=== PATIENT | female | born 1945 | race Caucasian/White ===

== ENCOUNTER → 2019-07-18 15:28 | Outpatient (CLI) | payer MEDICARE, SELFPAY ==
--- NOTE | 2019-07-18 15:35 | US_ITS ---
PROCEDURE: US KIDNEY CLINICAL INDICATION: CHRONIC IDNEY DISEASE COMPARISON: ABDPELW/O CT ABD PELVIS W/O CONTRAST from 03/29/2016 FINDINGS: The right kidney is 9 x 3 x 6 cm. No hydronephrosis. There is a 5 x 4 cm cyst along the lower pole of the right kidney The left kidney is 9 x 4 x 4 cm. No hydronephrosis. IMPRESSION: 5 cm right renal cyst otherwise negative bilateral renal ultrasound Dictated by: Everardo Healy MD 07/18/2019 17:32 Electronically signed by Everardo Healy MD in [place] 07/18/2019 17:32
== END ==
PROVIDERS: PCP Nurse Practitioner Family; Visit Provider Nurse Practitioner Family
DX: N18.9 Chronic kidney disease, unspecified (principal)
CPT/HCPCS: 76770

== ENCOUNTER 2019-09-07 20:19 | Emergency (ER) | payer MEDICARE, SELFPAY ==
[2019-09-07 20:33] VITALS: BP 125/107; PULSE 85; RESP 20; TEMP 36.4; O2SAT 97; BMI 32.5
--- NOTE | 2019-09-07 20:39 | HMH.EDUTC ---
[facility] [place] Disposition Clinical Impression: Gout attack Qualifiers: Gout site: toe Gout etiology: unspecified cause Laterality: left Qualified Code(s): M10.9 - Gout, unspecified Disposition: Home, Self-Care Condition on Discharge: Good Instructions: DI for Gout, Gout, Gout (Alternative Therapy), Colchicine Additional Instructions: Follow up with Family Doctor if no improvement or any worsening of symptoms in the next 48-72 hours or sooner if needed *Straight to ER if any life threatening symptoms Return if needed Prescriptions: Colchicine [Colcrys 0.6mg tablet] 0.6 mg PO DIRECTED #3 tab Transmission Status: Pending to [facility] Referrals: Cuca Means APRN [Primary Care Provider] - As needed Time of Disposition: 21:27 Medical Decision Making - Rishabh Inquiry Pt receiving controlled substance: No Rishabh was queried for this patient: No Vital Signs: 09/07/19 20:33 Temperature 97.6 F Temperature Source Oral Pulse Rate [Left Brachial] 85 Respiratory Rate 20 Blood Pressure [Left Arm] 125/107 H Blood Pressure Mean [Left Arm] 113 Blood Pressure Source [Left Arm] Automatic Cuff Blood Pressure Position [Left Arm] Sitting 02 Sat by Pulse Oximetry 97 Oxygen Delivery Method Room Air - Lab Data Lab Results 09/07/19 20:37: Uric Acid 7.9 H Orders (Tests/Meds): ORDERS Category Date Time Status Foot XR left minimum 3 views [XR foot LT min 3V] Stat Exams 09/07/19 20:43 Taken - Radiology Data #1 Image(s): Foot/Toes Image Reviewed: Yes I reviewed the patient's radiology image Preliminary Findings: No Fracture Seen [facility] [place] HPI - General Stated complaint: Left big toe pain Time Seen by Provider: 09/07/19 20:39 Mode of Arrival: Ambulatory Source of Information: Patient Limitations: No Limitations Description of Symptoms (Recalled from Triage Doc. by RN): PATIENT C/O SWELLING AND THROBBING PAIN TO LEFT GREAT TOE THAT STARTED TODAY HEENT Symptoms (Recalled from RN notes): No Resp Symptoms (Recalled from RN notes): No Skin Symptoms (Recalled from RN notes): No MS Symptoms (Recalled from RN notes): Yes Functional Status (Recalled from RN notes): WNL - History of Present Illness Provider Complaint: Patient states that she has been having swelling and throbbing pain in her left great toe that has got worse today States that she hasnt done anything to hurt it that she is aware of and as the day went on she continued to have pain and looked a little red so she came in to get it checked - Related Data Home Medications Medication Instructions Recorded Confirmed Furosemide [Lasix 20mg tab] 20 mg PO DAILY 09/07/19 09/07/19 Pravastatin Sodium 10 mg PO HS 09/07/19 09/07/19 lisinopriL [Lisinopril 10mg Tab] 10 mg PO DAILY 09/07/19 09/07/19 Previous Rx's Medication Instructions Recorded Colchicine [Colcrys 0.6mg tablet] 0.6 mg PO DIRECTED #3 tab 09/07/19 Allergies Allergy/AdvReac Type Severity Reaction Status Date / Time tetanus toxoid, adsorbed Allergy Unknown SWELLS Verified 09/07/19 20:40 [TETANUS TOXOID, ADSORBED] THROAT - Worker's Comp Is this a Worker's Comp case?: No [facility] History - Hepatitis A Screen Drug use history?: No High risk sexual behaviors?: No History of sexually transmitted infection?: No Currently employed?: No Childcare worker?: No Do you have indoor plumbing?: Yes Do you have electricity?: Yes Attestation statement:: This patient has been screened for Hepatitis A risk factors. I have reviewed the patient's past medical history: Yes Medical History: Reports:: Hyperlipidemia, Hypertension, Kidney Stones Other Medical History: Reports: Hoarseness Other Surgeries: Yes: Hysterectomy-Total Amputation: No Fractures: No - Social History Smoking Status: Former smoker Tobacco Type: cigarettes Alcohol Intake: never Alcohol Intake Frequency:: a few times a month Substance Use Type: denies use Occupational Status: other Housing: house
--- NOTE | 2019-09-07 20:43 | XR_ITS ---
PROCEDURE: XR FOOT LT MIN 3V CLINICAL INDICATION: left great toe pain COMPARISON: No exams were available for comparison FINDINGS: No fracture or dislocation. No lytic or blastic change. There is normal mineralization. The joint spaces are well-preserved. No significant degenerative/arthritic changes. No erosive changes evident. Other findings:None. IMPRESSION: No acute findings. Dictated by: Everardo Healy MD 09/08/2019 07:39 Electronically signed by Everardo Healy MD in [place] 09/08/2019 07:39
[2019-09-07 20:53] LABS: Uric Acid 7.9 mg/dl (2.5-6.2)
[2019-09-07 21:33] VITALS: BP 125/107; PULSE 85; RESP 20; TEMP 36.4; O2SAT 97
== END 2019-09-07 21:34 | disposition home or self-care (01) ==
PROVIDERS: Emergency Provider Nurse Practitioner; PCP Nurse Practitioner Family
DX: M10.072 Idiopathic gout, left ankle and foot (principal); I10 Essential (primary) hypertension; E78.5 Hyperlipidemia, unspecified; Z87.442 Personal history of urinary calculi; Z88.7 Allergy status to serum and vaccine
CPT/HCPCS: 73630; 84550; 96372; 99202

== ENCOUNTER → 2019-11-28 10:58 | Outpatient (CLI) | payer MEDICARE, SELFPAY ==
[2019-11-29 20:41] LABS: Covid-19 Nasal PCR Sendout Lex POSITIVE
== END ==
PROVIDERS: PCP Nurse Practitioner Family; Visit Provider Nurse Practitioner Family
DX: Z20.828 Contact with and (suspected) exposure to other viral communicable diseases (principal); U07.1 COVID-19
CPT/HCPCS: U0004

== ENCOUNTER → 2020-06-12 09:35 | Outpatient (CLI) | payer MEDICARE, MEDICAID, SELFPAY ==
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
--- NOTE | 2020-06-12 | XR_ITS ---
PROCEDURE: XR HIP RT 2-3V W/PELVIS CLINICAL INDICATION: RT HIP PAIN COMPARISON: No exams were available for comparison FINDINGS: No fracture or dislocation is evident. No significant degenerative change. No lytic or blastic change. Unremarkable soft tissues. IMPRESSION: Negative right hip Dictated by: Everardo Healy MD 06/12/2020 13:16 Everardo Healy MD in [place] 06/12/2020 13:16
--- NOTE | 2020-06-12 | XR_ITS ---
PROCEDURE: XR KNEE RT 3V CLINICAL INDICATION: ACUTE PAIN OF RIGHT KNEE COMPARISON: No exams were available for comparison FINDINGS: No fracture or dislocation. No lytic or blastic change. There is normal mineralization. The joint spaces are well-preserved. No significant degenerative/arthritic changes. No erosive changes evident. Other findings:None. IMPRESSION: No acute findings. Dictated by: Everardo Healy MD 06/12/2020 13:17 Everardo Healy MD in [place] 06/12/2020 13:17
== END ==
PROVIDERS: PCP Nurse Practitioner Family; Visit Provider Nurse Practitioner Family
DX: M54.41 Lumbago with sciatica, right side (principal); M25.551 Pain in right hip; M25.561 Pain in right knee
CPT/HCPCS: 72110; 73502; 73562

== ENCOUNTER 2020-06-25 19:43 | Emergency (ER) | payer OTHER, MEDICARE, MEDICAID, SELFPAY ==
[2020-06-25 20:09] VITALS: BP 159/74; PULSE 117; RESP 17; TEMP 36.6; O2SAT 97; BMI 38.9
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
[2020-06-25 22:27] VITALS: BP 148/74; PULSE 92; RESP 18; TEMP 36.6; O2SAT 97
== END 2020-06-25 22:29 | disposition home or self-care (01) ==
PROVIDERS: Emergency Provider Emergency Medicine; PCP Nurse Practitioner Family
DX: S06.0X0A Concussion without loss of consciousness, initial encounter (principal); S00.03XA Contusion of scalp, initial encounter; S13.9XXA Sprain of joints and ligaments of unspecified parts of neck, initial encounter; S70.02XA Contusion of left hip, initial encounter; V43.52XA Car driver injured in collision with other type car in traffic accident, initial encounter; Y92.414 Local residential or business street as the place of occurrence of the external cause
CPT/HCPCS: 70450; 71046; 72125; 73502; 99282

== ENCOUNTER → 2020-10-22 12:52 | Outpatient (CLI) | payer MEDICARE, SELFPAY ==
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
== END ==
PROVIDERS: PCP Nurse Practitioner Family; Visit Provider Nurse Practitioner Family
DX: M54.41 Lumbago with sciatica, right side (principal); M54.42 Lumbago with sciatica, left side; M51.36 Other intervertebral disc degeneration, lumbar region
CPT/HCPCS: 72148; 76376

== ENCOUNTER → 2020-12-17 09:24 | Outpatient (CLI) | payer MEDICARE, SELFPAY | PROVIDERS: Visit Provider Ophthalmology | DX: Z01.812 Encounter for preprocedural laboratory examination (principal); Z11.52 Encounter for screening for COVID-19 | CPT/HCPCS: C9803; U0003; U0005 ==

== ENCOUNTER 2020-12-18 06:52 | Day surgery (SDC) | payer MEDICARE, MEDICAID, SELFPAY ==
[2020-12-12 13:40] VITALS: BMI 31.7
[2020-12-18] VITALS (9 sets, daily range): BP systolic 149–207; BP diastolic 70–94; PULSE 105–120; RESP 16–18; TEMP 36.5–36.7; O2SAT 94–100
== END 2020-12-18 08:30 | disposition home or self-care (01) ==
LOC: OR 06:55
PROVIDERS: PCP Nurse Practitioner Family; Visit Provider Ophthalmology
DX: H25.813 Combined forms of age-related cataract, bilateral (principal); H53.149 Visual discomfort, unspecified; H02.831 Dermatochalasis of right upper eyelid; H02.834 Dermatochalasis of left upper eyelid; I10 Essential (primary) hypertension; F41.9 Anxiety disorder, unspecified; M19.90 Unspecified osteoarthritis, unspecified site; Z79.899 Other long term (current) drug therapy
CPT/HCPCS: 66984; V2632

== ENCOUNTER → 2020-12-31 07:13 | Outpatient (CLI) | payer MEDICARE, MEDICAID, SELFPAY | PROVIDERS: PCP Nurse Practitioner Family; Visit Provider Ophthalmology | DX: Z01.812 Encounter for preprocedural laboratory examination (principal); Z11.52 Encounter for screening for COVID-19 | CPT/HCPCS: C9803; U0003; U0005 ==

== ENCOUNTER 2021-01-01 06:51 | Day surgery (SDC) | payer MEDICARE, MEDICAID, SELFPAY ==
[2020-12-27 13:02] VITALS: BMI 32.5
[2021-01-01] VITALS (8 sets, daily range): BP systolic 141–209; BP diastolic 72–93; PULSE 88–94; RESP 16–18; TEMP 36.8–37; O2SAT 96–100; BMI 32.5
== END 2021-01-01 08:40 | disposition home or self-care (01) ==
LOC: OR 06:53
PROVIDERS: PCP Nurse Practitioner Family; Visit Provider Ophthalmology
DX: H25.813 Combined forms of age-related cataract, bilateral (principal); H53.149 Visual discomfort, unspecified; H02.831 Dermatochalasis of right upper eyelid; H02.834 Dermatochalasis of left upper eyelid; I10 Essential (primary) hypertension; Z82.49 Family history of ischemic heart disease and other diseases of the circulatory system; Z88.7 Allergy status to serum and vaccine; Z79.899 Other long term (current) drug therapy
CPT/HCPCS: 66984; V2632

== ENCOUNTER 2021-01-02 09:58 | Emergency (ER) | payer MEDICARE, MEDICAID, SELFPAY ==
[2021-01-02 09:58] VITALS: BP 199/95; PULSE 83; RESP 16; TEMP 36.7; O2SAT 98; BMI 32.4
--- NOTE | 2021-01-02 10:04 | HMH.EDGENADL ---
ED Disposition Clinical Impression: Chronic hypertension Disposition: Home, Self-Care Condition on Discharge: Good Additional Instructions: Follow-up with your nurse practitioner tomorrow versus calling Dr. Anaya/Dr. Gage office today for reevaluation and further medication management. Referrals: Cuca Means APRN [Primary Care Provider] - 01/03/21 (Call for appointment) Time of Disposition: 10:37 - Critical Care Critical Care Time: No Attestation: On , the high probability of a clinically significant, sudden or life threatening deterioration of the following system(s) required my full and direct attention, intervention and personal management. The time I documented below is in addition to time spent performing reported procedures but includes the following listed in this critical care notation. Medical Decision Making - Medical Records Medical records reviewed: Yes: I reviewed the patient's medical records. - Rishabh Inquiry Pt receiving controlled substance: No Vital Signs: 01/02/21 09:58 Temperature 98.1 F Temperature Source Oral Pulse Rate [Right Radial] 83 Respiratory Rate 16 Blood Pressure [Right Arm] 199/95 H Blood Pressure Mean [Right Arm] 129 Blood Pressure Source [Right Arm] Automatic Cuff Blood Pressure Position [Right Arm] Sitting 02 Sat by Pulse Oximetry 98 Oxygen Delivery Method Room Air - ECG Data Tracing #1 I reviewed this ECG and interpreted as documented below: Normal sinus rhythm, 74 bpm, no ST elevation or depression, no ectopy, normal intervals. ECG initial impression date: 01/02/21 ECG initial impression time: 10:14 Medical Decision Narrative: 75yo F presents to the emergency department secondary to her chronic hypertension. Patient has no symptoms of hypertensive urgency or emergency. She reports her blood pressure currently on the monitor is what her blood pressure runs at home. EKG is reviewed as above. She is currently being worked up by her nurse practitioner outpatient for further management. Again, she denies any chest pain shortness of breath. She has no cardiac history. Patient does not smoke. Discussed with the patient do not manage chronic blood pressure through the emergency department. General Adult HPI - General Stated complaint: bp high Time Seen by Provider: 01/02/21 10:04 Mode of Arrival: Ambulatory Source of Information: Patient - History of Present Illness HPI narrative: 75yo F presents the emergency department secondary to elevated blood pressure. Patient reports her nurse practitioner recently increased her dose of lisinopril, yesterday. She reports taking medications as directed. She states her blood pressure has been running 190s/100s. She denies any chest pain, shortness of breath, lightheadedness, dizziness. Her main complaint is chronic fatigue. Patient has had no further work-up into her resistant hypertension. She attempted to call her nurse practitioner's office this morning but she is out today. - Related Data Home Medications Medication Instructions Recorded Confirmed lisinopriL [Lisinopril 10mg Tab] 10 mg PO DAILY 09/07/19 12/27/20 Buspirone HCl [Buspar 10mg 10 mg PO BID 06/25/20 12/27/20 tablet] Meloxicam 15 mg PO DAILY 06/25/20 12/27/20 Aspirin [Aspirin 81mg chewable 81 mg PO DAILY 01/02/21 01/02/21 tab] Cyclobenzaprine HCl 10 mg PO NEEDED PRN 01/02/21 01/02/21 [Cyclobenzaprine 10mg Tab*] Furosemide [Furosemide 20mg Tab*] 20 mg PO BID 01/02/21 01/02/21 Potassium Chloride [K-Tab ER 10 10 meq PO DAILY 01/02/21 01/02/21 mEq] Tramadol HCl [Tramadol 50mg 50 mg PO NEEDED PRN 01/02/21 01/02/21 Tab] diazePAM [diazePAM 5mg Tablet] 5 mg PO NEEDED PRN 01/02/21 01/02/21 Allergies Allergy/AdvReac Type Severity Reaction Status Date / Time tetanus toxoid, adsorbed Allergy Unknown SWELLS Verified 12/27/20 13:05 [TETANUS TOXOID, ADSORBED] THROAT [facility] History - Hepatitis A Screen
--- NOTE | 2021-01-02 10:13 | ECG_ITS ---
APPROVED REPORT Exam: Resting ECG HR:76 bpm ECG Measurements Heart Rate 76 AXES MO 152 P 89 QRSd 98 QRS 23 QT 398 T 60 QTc 447 Conclusion Sinus rhythm with fusion complexes Otherwise normal ECG Electronically signed by : Devan Doty MD 01/04/2021 14:29:55
[2021-01-02 11:04] VITALS: BP 196/104; PULSE 77; RESP 16; TEMP 36.7; O2SAT 98
== END 2021-01-02 11:07 | disposition home or self-care (01) ==
LOC: ER 10:46
PROVIDERS: Emergency Provider Family Medicine; PCP Nurse Practitioner Family
DX: I16.0 Hypertensive urgency (principal); R53.82 Chronic fatigue, unspecified; E78.5 Hyperlipidemia, unspecified; Z87.442 Personal history of urinary calculi; Z79.899 Other long term (current) drug therapy
CPT/HCPCS: 93005; 99281

== ENCOUNTER → 2021-01-24 10:27 | Outpatient (CLI) | payer MEDICARE, MEDICAID, SELFPAY ==
[2021-01-24 11:29] LABS: Chloride 103 mmol/L (98-107); Potassium 4.9 mmoL/L (3.5-5.1); Sodium 140 mmol/L (136-145)
[2021-01-24 11:32] LABS: Blood Urea Nitrogen 28 mg/dl (7-17); Estimated Glomerular Filt Rate 48 ml/min (>60); GFR (African American) 58 ML/MIN (>60)
[2021-01-24 11:33] LABS: Anion Gap 11.9 mEq/L (5-15); Calcium 9.6 mg/dl (8.4-10.2); Carbon Dioxide 30 mmol/L (22.0-30.0); Glucose 105 mg/dl (74-100)
== END ==
PROVIDERS: Visit Provider Nurse Practitioner Family
DX: I10 Essential (primary) hypertension (principal)
CPT/HCPCS: 36415; 80048

== ENCOUNTER 2021-05-26 12:30 | Emergency (ER) | payer MEDICARE, MEDICAID, SELFPAY ==
[2021-05-26 13:45] VITALS: BP 150/68; PULSE 103; RESP 17; TEMP 36.8; O2SAT 97; BMI 32.8
[2021-05-26 14:00] VITALS: BP 132/71; PULSE 102; O2SAT 96
--- NOTE | 2021-05-26 14:03 | XR_ITS ---
PROCEDURE INFORMATION: Exam: XR Chest Exam date and time: 05/26/2021 2:13 PM Age: 75 years old Clinical indication: Cough TECHNIQUE: Imaging protocol: XR of the chest. Views: 1 view. COMPARISON: CR XR CHEST 2V 06/25/2020 8:50 PM FINDINGS: Airway: Patent Lungs: Unremarkable. No consolidation. Pleural spaces: Unremarkable. No pleural effusion. No pneumothorax. Heart/Mediastinum: Unremarkable. No cardiomegaly. Bones/joints: No acute skeletal abnormality or aggressive osseous lesion. IMPRESSION: No acute findings.
[2021-05-26 14:08] LABS: Microscopic, Urine URINE MICROSCOPIC (MICROSCOPIC)
[2021-05-26 14:31] LABS: Appearance,Urine CLEAR (Clear); Bilirubin,Urine Negative (Negative); Blood, Urine Negative (Negative); Color,Urine YELLOW (Yellow); Glucose,Urine (UA) Negative (Negative); Ketones,Urine Negative (Negative); Leukocyte Esterase,Urine Negative (Negative); Nitrate,Urine Negative (Negative); Protein,Urine Negative (Negative); Urobilinogen,Urine 0.2 EU/dl (0.2)
[2021-05-26 14:42] LABS: WBC,Urine Occasional #/hpf (0-3)
[2021-05-26 15:03] LABS: Chloride 100 mmol/L (98-107); Sodium 140 mmol/L (136-145)
[2021-05-26 15:04] LABS: Potassium 4.7 mmoL/L (3.5-5.1)
[2021-05-26 15:06] LABS: Alanine Aminotransferase 26 U/L (12-78); Albumin Level 4.3 g/dl (3.5-5.0); Albumin/Globulin Ratio 1.2 (1.1-1.8); Alkaline Phosphatase 136 U/L (38-126); Anion Gap 12.7 mEq/L (5-15); Aspartate Amino Transferase 33 U/L (14-36); Bilirubin,Total 0.6 mg/dl (0.2-1.3); Blood Urea Nitrogen 45 mg/dl (7-17); Carbon Dioxide 32 mmol/L (22.0-30.0); Creatinine Clearance Estimated 35 mL/min (50-200); Estimated Glomerular Filt Rate 27 ml/min (>60); GFR (African American) 33 ML/MIN (>60); Globulin 3.5 g/dL (1.3-3.2); Total Protein,Serum 7.8 g/dl (6.3-8.2)
[2021-05-26 15:07] LABS: Calcium 8.8 mg/dl (8.4-10.2); Glucose 101 mg/dl (74-100)
[2021-05-26 15:08] LABS: Basophils # 0.2 K/mm3 (0-0.2); Basophils % 1.9 % (0.1-2.0); Eosinophils # 0.6 K/mm3 (0.0-0.4); Eosinophils % 4.8 % (0.1-12.0); Hematocrit 44.8 % (37.0-47.0); Hemoglobin 14.3 g/dL (12.2-16.2); Lymphocytes # 2.7 K/mm3 (0.7-4.5); Lymphocytes % 22.2 % (10-50); Mean Corpuscular Hemoglobin 29.9 pg (27.0-31.2); Mean Corpuscular Volume 93.5 fl (81-99); Mean Platelet Volume 8.6 fl (7.4-10.4); Monocytes # 0.5 K/mm3 (0.1-1.0); Monocytes % 4.1 % (1.7-9.3); Neutrophils # 8.1 K/mm3 (1.8-7.8); Neutrophils % 67.1 % (37.0-80.0); Platelet Count 347 K/mm3 (142-424); Red Cell Distribution Width 13.9 % (11.5-17.5); White Blood Count 12.1 K/mm3 (4.8-10.8)
[2021-05-26 15:16] LABS: NT Pro Brain Natriuretic Pep. 163 pg/mL (0-450)
[2021-05-26 15:41] VITALS: BP 157/88; PULSE 101
[2021-05-26 16:00] VITALS: BP 162/84; PULSE 101; O2SAT 98
--- NOTE | 2021-05-26 16:18 | HMH.EDGENADL ---
ED Disposition Clinical Impression: Acute bronchitis Qualifiers: Bronchitis organism: unspecified organism Qualified Code(s): J20.9 - Acute bronchitis, unspecified Disposition: Home, Self-Care Condition on Discharge: Good Instructions: DI for Acute Bronchitis, DI for Peripheral Edema -- Bilateral Additional Instructions: Zithromax and Tessalon Perles as prescribed. Follow-up with your primary care provider, call tomorrow. Prescriptions: Benzonatate [Benzonatate 100mg cap] 100 mg PO TIDP PRN #10 cap PRN Reason: Cough Transmission Status: Received by [facility] Azithromycin [Zithromax 250mg tab] 250 mg PO DAILY #4 tab Transmission Status: Received by [facility] Referrals: Cuca Means APRN [Primary Care Provider] - - Critical Care Critical Care Time: No Attestation: On 05/26/21, the high probability of a clinically significant, sudden or life threatening deterioration of the following system(s) required my full and direct attention, intervention and personal management. The time I documented below is in addition to time spent performing reported procedures but includes the following listed in this critical care notation. Medical Decision Making - Rishabh Inquiry Pt receiving controlled substance: No Vital Signs: 05/26/21 13:45 05/26/21 14:00 Temperature 98.2 F Temperature Source Oral Pulse Rate 102 H Pulse Rate [Left Radial] 103 H Respiratory Rate 17 Blood Pressure 132/71 Blood Pressure [Right Arm] 150/68 H Blood Pressure Mean 84 Blood Pressure Mean [Right Arm] 95 02 Sat by Pulse Oximetry 97 96 Oxygen Delivery Method Room Air - Lab Data Lab Results 05/26/21 13:49: Urine Color Yellow, Urine Appearance Clear, Urine pH 6.0, Ur Specific [place] 1.010, Urine Protein Negative, Urine Glucose (UA) Negative, Urine Ketones Negative, Urine Blood Negative, Urine Nitrate Negative, Urine Bilirubin Negative, Urine Urobilinogen 0.2, Ur Leukocyte Esterase Negative, Urine RBC None, Urine WBC Occasional, Ur Squamous Epith Cells 3-5, Urine Bacteria None 05/26/21 14:50: WBC 12.1 H, RBC 4.80, Hgb 14.3, Hct 44.8, MCV 93.5, MCH 29.9, MCHC 32.0, RDW 13.9, Plt Count 347, MPV 8.6, Neut % (Auto) 67.1, Lymph % (Auto) 22.2, Scott % (Auto) 4.1, Eos % (Auto) 4.8, Baso % (Auto) 1.9, Neut # (Auto) 8.1 H, Lymph # (Auto) 2.7, Scott # (Auto) 0.5, Eos # (Auto) 0.6 H, Baso # (Auto) 0.2 05/26/21 14:50: Sodium 140, Potassium 4.7, Chloride 100, Carbon Dioxide 32 H, Anion Gap 12.7, BUN 45 H, Creatinine 1.80 H, Estimated Creat Clear 35, Estimated GFR 27 L, Est GFR ( Amer) 33 L, Glucose 101 H, Calcium 8.8, Total Bilirubin 0.6, AST 33, ALT 26, Alkaline Phosphatase 136 H, NT-Pro-B Natriuret Pep 163, Total Protein 7.8, Albumin 4.3, Globulin 3.5 H, Albumin/Globulin Ratio 1.2 Result diagrams: 05/26/21 14:50 05/26/21 14:50 Orders (Tests/Meds): ED MEDICATIONS Generic Name Dose Route Start Last Admin Trade Name Freq PRN Reason Stop Dose Admin Sodium Chloride 10 ml 05/26/21 14:03 Sodium Chloride 0.9% 10ml Flush Syringe IV 06/25/21 14:02 NEEDED PRN Maintain IV Site Discontinued Medications Generic Name Dose Route Start Last Admin Trade Name Freq PRN Reason Stop Dose Admin Azithromycin 500 mg 05/26/21 16:42 Azithromycin 250mg Tablet PO 05/26/21 16:43 ONCE ONE Benzonatate 100 mg 05/26/21 16:42 Benzonatate 100mg Capsule PO 05/26/21 16:43 ONCE ONE - Radiology Data #1 Image(s): Chest Image Reviewed: Yes I have reviewed radiologist's interpretation PROCEDURE INFORMATION: Exam: XR Chest Exam date and time: 05/26/2021 2:13 PM Age: 75 years old Clinical indication: Cough TECHNIQUE: Imaging protocol: XR of the chest. Views: 1 view. COMPARISON: CR XR CHEST 2V 06/25/2020 8:50 PM FINDINGS: Airway: Patent Lungs: Unremarkable. No consolidation. Pleural spaces: Unremarkable. No pleural effusion. No pneumothorax.
[2021-05-26 16:30] VITALS: BP 153/84; PULSE 101; O2SAT 97
[2021-05-26 17:09] VITALS: BP 136/84; PULSE 91; RESP 20; TEMP 36.8; O2SAT 96
== END 2021-05-26 17:09 | disposition home or self-care (01) ==
PROVIDERS: Emergency Provider Emergency Medicine; PCP Nurse Practitioner Family
DX: J20.9 Acute bronchitis, unspecified (principal); I10 Essential (primary) hypertension; E78.5 Hyperlipidemia, unspecified; R06.09 Other forms of dyspnea; Z79.899 Other long term (current) drug therapy
CPT/HCPCS: 36415; 71045; 80053; 81001; 83880; 85025; 99283

== ENCOUNTER → 2021-06-20 15:53 | Outpatient (CLI) | payer MEDICARE, MEDICAID, SELFPAY ==
[2021-06-20 16:34] LABS: Basophils # 0.2 K/mm3 (0-0.2); Basophils % 1.4 % (0.1-2.0); Eosinophils # 0.4 K/mm3 (0.0-0.4); Hematocrit 43.1 % (37.0-47.0); Hemoglobin 13.8 g/dL (12.2-16.2); Lymphocytes # 3.5 K/mm3 (0.7-4.5); Lymphocytes % 28.4 % (10-50); Mean Corpuscular Hemoglobin 30.1 pg (27.0-31.2); Mean Platelet Volume 8.7 fl (7.4-10.4); Monocytes # 0.7 K/mm3 (0.1-1.0); Monocytes % 5.7 % (1.7-9.3); Neutrophils # 7.7 K/mm3 (1.8-7.8); Neutrophils % 61.5 % (37.0-80.0); Platelet Count 369 K/mm3 (142-424); Red Blood Count 4.59 M/mm3 (4.20-5.40); Red Cell Distribution Width 13.5 % (11.5-17.5); White Blood Count 12.5 K/mm3 (4.8-10.8)
[2021-06-20 17:43] LABS: Alanine Aminotransferase 26 U/L (12-78); Albumin Level 4.4 g/dl (3.5-5.0); Albumin/Globulin Ratio 1.5 (1.1-1.8); Alkaline Phosphatase 128 U/L (38-126); Anion Gap 14.9 mEq/L (5-15); Aspartate Amino Transferase 31 U/L (14-36); Bilirubin,Total 0.6 mg/dl (0.2-1.3); Blood Urea Nitrogen 36 mg/dl (7-17); Calcium 9.2 mg/dl (8.4-10.2); Carbon Dioxide 29 mmol/L (22.0-30.0); Chloride 100 mmol/L (98-107); Estimated Glomerular Filt Rate 48 ml/min (>60); GFR (African American) 58 ML/MIN (>60); Glucose 82 mg/dl (74-100); Potassium 4.9 mmoL/L (3.5-5.1); Sodium 139 mmol/L (136-145); Total Protein,Serum 7.4 g/dl (6.3-8.2); Uric Acid 8.1 mg/dl (2.5-6.2)
== END ==
PROVIDERS: Visit Provider Nurse Practitioner Family
DX: M79.672 Pain in left foot (principal); M79.89 Other specified soft tissue disorders
CPT/HCPCS: 36415; 80053; 84550; 85025

== ENCOUNTER → 2021-07-22 11:36 | Outpatient (POV) | payer MEDICARE, MEDICAID, SELFPAY | PROVIDERS: Visit Provider Internal Medicine Nephrology | DX: Z00.00 Encounter for general adult medical examination without abnormal findings (principal) ==

== ENCOUNTER 2021-12-06 07:12 | Emergency (ER) | payer MEDICARE, MEDICAID, SELFPAY ==
[2021-12-06 07:13] VITALS: BP 190/77; PULSE 90; RESP 16; TEMP 36.7; O2SAT 97; BMI 31.7
[2021-12-06 08:01] VITALS: BP 175/81; PULSE 86; O2SAT 97
[2021-12-06 08:13] LABS: Basophils # 0.1 K/mm3 (0-0.2); Basophils % 1.1 % (0.1-2.0); Eosinophils # 0.3 K/mm3 (0.0-0.4); Eosinophils % 2.6 % (0.1-12.0); Hematocrit 40.7 % (37.0-47.0); Hemoglobin 13.7 g/dL (12.2-16.2); Lymphocytes # 2.3 K/mm3 (0.7-4.5); Lymphocytes % 18.1 % (10-50); Mean Corpuscular HGB Conc 33.6 g/dL (31.8-35.4); Mean Corpuscular Hemoglobin 31.2 pg (27.0-31.2); Mean Corpuscular Volume 92.8 fl (81-99); Mean Platelet Volume 8.3 fl (7.4-10.4); Monocytes # 0.6 K/mm3 (0.1-1.0); Monocytes % 4.4 % (1.7-9.3); Neutrophils # 9.4 K/mm3 (1.8-7.8); Neutrophils % 73.7 % (37.0-80.0); Platelet Count 314 K/mm3 (142-424); Red Blood Count 4.39 M/mm3 (4.20-5.40); Red Cell Distribution Width 14.4 % (11.5-17.5); White Blood Count 12.8 K/mm3 (4.8-10.8)
[2021-12-06 08:17] LABS: Blood Urea Nitrogen 24 mg/dl (7-17); Calcium 8.7 mg/dl (8.4-10.2); Carbon Dioxide 32 mmol/L (22.0-30.0); Creatinine Clearance Estimated 61 mL/min (50-200); Estimated Glomerular Filt Rate 54 ml/min (>60); GFR (African American) 65 ML/MIN (>60); Glucose 112 mg/dl (74-100); Sodium 142 mmol/L (136-145); Uric Acid 4.1 mg/dl (2.5-6.2)
--- NOTE | 2021-12-06 08:23 | HMH.EDGENADL ---
Discharge Plan Disposition Patient Disposition: Home, Self-Care Condition: Good Chief Complaint: PAIN Prescriptions Prescriptions: No Action indomethacin 50 mg capsule 50 mg PO BID allopurinol 300 mg tablet 300 mg PO DAILY lisinopril 10 MG tablet 20 mg PO DAILY tramadol 50 MG tablet 50 mg PO NEEDED PRN (Reason: pain) aspirin 81 MG tablet,chewable 81 mg PO DAILY furosemide 20 MG tablet 20 mg PO BID Referrals Follow up/Referrals: Cuca Means APRN [Primary Care Provider] - See instructions Activity Restrictions/Add. Instructions Additional Instructions/Restrictions: Prednisone as prescribed. Rest and elevate foot. Continue tramadol for pain. Follow-up with your primary care provider, call today to make appointment. Return if intolerable pain or if fever. Clinical Impressions Clinical Impression: Gout attack Discharge ED Provider: Ti Kulkarni General Adult HPI General Chief complaint: PAIN Stated complaint: Rt foot swollen Time Seen by Provider: 12/06/21 08:22 Mode of Arrival: Ambulatory Source of Information: Patient Limitations: No Limitations Description of Symptoms (Recalled from ER Triage Doc. by RN): Pt c/o R foot pain for 3-4 days. Pt reports foot is painful on the bottom of foot. Swelling noted, foot is warm to the touch and redness noted. Pt reports hx of gout. Pt denies any injury. History of Present Illness HPI narrative: States she has a 3-day history of pain in her right foot. Reports to me that the pain is on top of the foot, although told the nurse it was on the bottom. No injury. She says she does not know whether it is her gout or bug bite. She has associated pain, no fever. She has swelling of the foot. She has redness. She has had prior history of numerous gout attacks. She says she thinks she has had 3 or 4 in the past several months. She is currently on allopurinol and indomethacin, she started the indomethacin couple of days ago. She has had colchicine in the past, but it gives her diarrhea and she prefers not to take that. She says the last time she had a gout attack she was treated with a shot, possibly corticosteroids. She says that her current symptoms are in the same location as previous gout attacks, generally right forefoot as she has now, but she has more pain, redness, and swelling than previously. She has not had any recent x-rays. Related Data Home Medications Medication Instructions Recorded Confirmed lisinopril 10 mg tablet 20 mg PO DAILY Hypertension 09/07/19 12/06/21 aspirin 81 mg chewable tablet 81 mg PO DAILY heart health 01/02/21 12/06/21 furosemide 20 mg tablet 20 mg PO BID Fluid 01/02/21 12/06/21 tramadol 50 mg tablet 50 mg PO NEEDED PRN pain 01/02/21 12/06/21 allopurinol 300 mg tablet 300 mg PO DAILY gout 12/06/21 12/06/21 indomethacin 50 mg capsule 50 mg PO BID Pain 12/06/21 12/06/21 Allergies Allergy/AdvReac Type Severity Reaction Status Date / Time tetanus toxoid, adsorbed Allergy Unknown SWELLS Verified 12/27/20 13:05 [TETANUS TOXOID, ADSORBED] THROAT PFSH PFSH Social History Smoking Status: Never smoker second hand exposure: No alcohol intake: current substance use type: denies use current occupational status: retired Travel in the last 8 weeks: None household members: spouse housing: house current occupational exposures/hazards: No caffeine: Yes ROS Obtained: Yes Systems reviewed as appropriate & no additional complaints except as documented Constitutional Constitutional: Denies fever(s) and Denies weakness Musculoskeletal Musculoskeletal: Reports as per HPI, Denies numbness and Reports other (Right foot pain, redness, and swelling) Neurologic Neurologic: Denies numbness and Denies weakness Physical Exam General General appearance: alert and in no apparent distress Chest Chest inspection: Present normal inspection and symmetric chest wall rise
[2021-12-06 08:31] VITALS: BP 173/86; PULSE 88; RESP 18; O2SAT 98
--- NOTE | 2021-12-06 08:31 | XR_ITS ---
FINAL REPORT CLINICAL HISTORY: pain and swelling, no injury, hx gout FINDINGS: 3 views of the right foot were obtained. There is no acute fracture or dislocation. The joint spaces are intact. The soft tissues are unremarkable. IMPRESSION: No acute process. Reviewed, Interpreted and Dictated by Sesar Owen MD Transcribed by Bud Barr Authenticated and [facility]
--- NOTE | 2021-12-06 08:40 | PC.NURSE ---
rad at to transport pt to xray via wheelchair
--- NOTE | 2021-12-06 08:41 | PC.NURSE ---
pt to xray
[2021-12-06 08:45] LABS: Anion Gap 11.8 mEq/L (5-15); Chloride 102 mmol/L (98-107); Potassium 3.8 mmoL/L (3.5-5.1)
--- NOTE | 2021-12-06 08:56 | PC.NURSE ---
pt and family updated on plan of care
[2021-12-06 09:03] VITALS: BP 137/74; PULSE 77; RESP 16; TEMP 36.6; O2SAT 98
== END 2021-12-06 09:05 | disposition home or self-care (01) ==
PROVIDERS: Emergency Medicine; Emergency Provider Emergency Medicine; PCP Nurse Practitioner Family
DX: M10.9 Gout, unspecified (principal); Z79.1 Long term (current) use of non-steroidal anti-inflammatories (NSAID); Z79.52 Long term (current) use of systemic steroids; Z79.82 Long term (current) use of aspirin; Z79.899 Other long term (current) drug therapy
CPT/HCPCS: 73630; 80048; 84550; 85025; 96374; 96375; 99284; J2405

== ENCOUNTER → 2021-12-13 15:18 | Outpatient (CLI) | payer MEDICARE, MEDICAID, SELFPAY ==
--- NOTE | 2021-12-13 15:21 | MR_ITS ---
PROCEDURE INFORMATION: Exam: MR Right Lower Extremity Other Than Joint Without Contrast; Foot Exam date and time: 12/13/2021 3:22 PM Age: 76 years old Clinical indication: Swelling, leg or foot; Additional info: Swelling in right foot TECHNIQUE: Imaging protocol: Magnetic resonance imaging of the Right lower extremity without contrast. Exam focused on the foot. COMPARISON: CR XR FOOT RT MIN 3V 12/06/2021 8:33 AM FINDINGS: Bones and cartilage: Subchondral cystic change involving the medial talar dome in approximately a 3 x 7 mm region suggests a remote osteochondral injury (series 8/image 23, series 6/image 38). Overlying full-thickness cartilage loss is favored to be present in this region although assessment is limited due to the large field of view of the study. There is no acute fracture or dislocation. No aggressive bone lesions are present. No evidence of a crystal or inflammatory arthropathy. Joint spaces: A mild effusion involves the ankle joint. LIGAMENTS: Lisfranc ligament: Unremarkable. No evidence of tear. TENDONS: Flexor tendons of foot: Unremarkable. No evidence of tear. Tibialis posterior tendon: Unremarkable as visualized. Peroneal tendons: A longitudinal split tear involves the peroneus brevis tendon. Mild tenosynovitis involves the peroneal tendon sheath. Extensor tendons of foot: Unremarkable. No evidence of tear. Tibialis anterior tendon: Unremarkable as visualized. Achilles tendon: Minimal intermediate signal involves the distal Achilles tendon, consistent with minimal tendinopathy. Tarsal canal (Sinus tarsi): Unremarkable. Tarsal tunnel: Unremarkable. Soft tissues: Moderate to severe diffuse subcutaneous edema has a nonspecific appearance potentially indicating cellulitis or vascular insufficiency. Plantar fascia: Unremarkable as visualized. IMPRESSION: 1. Moderate to severe diffuse subcutaneous edema having a nonspecific appearance potentially indicating cellulitis or vascular insufficiency. 2. Peroneus brevis longitudinal split tear. 3. Mild tenosynovitis of the peroneal tendons. 4. Probable remote osteochondral injury involving the medial talar dome in a 3 x 7 mm region with presumed overlying full-thickness cartilage loss.
== END ==
PROVIDERS: PCP Nurse Practitioner Family; Visit Provider Nurse Practitioner Family
DX: M79.671 Pain in right foot (principal); M79.89 Other specified soft tissue disorders
CPT/HCPCS: 73718

== ENCOUNTER → 2021-12-19 13:30 | Outpatient (CLI) | payer MEDICARE, MEDICAID, SELFPAY ==
--- NOTE | 2021-12-19 | CA_ITS ---
FINAL REPORT TECHNIQUE: Ultrasound images of the deep venous system were obtained from the right groin to the calf veins. CLINICAL HISTORY: RLE PAIN/EDEMA FINDINGS: The deep venous system is normally compressible. Normal flow is identified. IMPRESSION: No evidence of right lower extremity DVT. Reviewed, Interpreted and Dictated by Jonathan Mack III, MD Transcribed by Bud Barr Authenticated and [facility]
== END ==
PROVIDERS: PCP Nurse Practitioner Family; Visit Provider Family Medicine
DX: M79.604 Pain in right leg (principal)
CPT/HCPCS: 93971

== ENCOUNTER → 2022-02-27 09:12 | Outpatient (CLI) | payer MEDICARE, MEDICAID, SELFPAY | PROVIDERS: PCP Student in an Organized Health Care Education/Training Program; Visit Provider Student in an Organized Health Care Education/Training Program | DX: R68.89 Other general symptoms and signs (principal) | CPT/HCPCS: C9803; U0003; U0005 ==

== ENCOUNTER → 2022-12-29 16:51 | Outpatient (CLI) | payer MEDICARE, MEDICAID, SELFPAY ==
--- NOTE | 2022-12-29 16:54 | XR_ITS ---
PROCEDURE INFORMATION: Exam: XR Lumbosacral Spine Exam date and time: 12/29/2022 4:56 PM Age: 77 years old Clinical indication: Low back pain; Additional info: Lower back pain TECHNIQUE: Imaging protocol: Radiologic exam of the lumbosacral spine. Views: 2 or 3 views. COMPARISON: MR LUMBAR SPINE WO CON 10/22/2020 1:05 PM FINDINGS: Bones/joints: There are 5 lumbar type vertebral bodies. No compression fractures. Severe L1-L2, moderate L2-L3, and mild L3-L4, L4-L5, and L5-S1 degenerative disc disease. L4-L5 and L5-S1 facet arthropathy. Mild dextroscoliosis. Soft tissues: Unremarkable. IMPRESSION: 1. No acute findings. 2. Moderate lumbar spine degenerative changes.
[2022-12-29 18:07] LABS: Alanine Aminotransferase 21 U/L (12-78); Albumin Level 4.6 g/dl (3.5-5.0); Albumin/Globulin Ratio 1.3 (1.1-1.8); Alkaline Phosphatase 112 U/L (38-126); Anion Gap 22.1 mEq/L (5-15); Aspartate Amino Transferase 28 U/L (14-36); Bilirubin,Total 0.2 mg/dl (0.2-1.3); Blood Urea Nitrogen 49 mg/dl (7-17); Calcium 9.9 mg/dl (8.4-10.2); Carbon Dioxide 22 mmol/L (22.0-30.0); Chloride 104 mmol/L (98-107); Estimated Glomerular Filt Rate 31 ml/min (>60); GFR (African American) 38 ML/MIN (>60); Globulin 3.6 g/dL (1.3-3.2); Glucose 108 mg/dl (74-100); Potassium 4.1 mmoL/L (3.5-5.1); Sodium 144 mmol/L (136-145); Total Protein,Serum 8.2 g/dl (6.3-8.2)
== END ==
PROVIDERS: PCP Nurse Practitioner Family; Visit Provider Nurse Practitioner Family
DX: M54.50 Low back pain, unspecified (principal); I10 Essential (primary) hypertension; E78.5 Hyperlipidemia, unspecified; R31.9 Hematuria, unspecified
CPT/HCPCS: 72100; 80053; 87086

== ENCOUNTER 2022-12-31 15:02 | Observation (INO) | payer MEDICARE, MEDICAID, SELFPAY ==
[2022-12-31 15:03] VITALS: BP 149/74; PULSE 95; RESP 16; TEMP 36.6; O2SAT 93; BMI 36.6
[2022-12-31 15:09] VITALS: BMI 36.6
--- NOTE | 2022-12-31 15:10 | CT_ITS ---
FINAL REPORT CLINICAL HISTORY: stroke r/o COMPARISON: 06/25/2020 FINDINGS: Axial images of the head were obtained without contrast. Coronal reformatted images were also obtained. This study was performed with techniques to keep radiation doses as low as reasonably achievable (ALARA). Individualized dose reduction techniques using automated exposure control or adjustment of mA and/or kV according to the patient's size were employed. There is generalized age-appropriate atrophy. Periventricular low-attenuation areas are seen consistent with moderate chronic ischemic changes. There are several chronic lacunar infarcts. There is no evidence of intracranial hemorrhage or mass. There is no evidence of acute infarct. There is no evidence of shift of the midline structures. No skull abnormality is seen on the bone window images. IMPRESSION: Atrophy and moderate periventricular chronic ischemic changes. No acute intracranial abnormality identified. Reviewed, Interpreted and Dictated by Jonathan Mack III, MD Transcribed by Catrina Curry Authenticated and [facility]
--- NOTE | 2022-12-31 15:10 | ECG_ITS ---
APPROVED REPORT Exam: Resting ECG HR:94 bpm ECG Measurements Heart Rate 94 AXES DE 203 P 72 QRSd 97 QRS 20 QT 355 T 53 QTc 407 Conclusion SINUS RHYTHM LOW QRS VOLTAGE IN PRECORDIAL LEADS [QRS DEFLECTION < 1.0 mV IN CHEST LEADS] INCOMPLETE RIGHT BUNDLE BRANCH BLOCK [90+ ms QRS DURATION, TERMINAL R IN V1/V2, 40+ ms S IN I/aVL/V4/V5/V6] BORDERLINE ECG WARNING: DATA QUALITY MAY AFFECT INTERPRETATION UNCONFIRMED REPORT Electronically signed by : Devan Doty MD 01/01/2023 21:27:36
--- NOTE | 2022-12-31 15:11 | PC.NURSE ---
Dr. Scott at BS
--- NOTE | 2022-12-31 15:11 | PC.NURSE ---
rad notified of ct head order-stroke protocol
--- NOTE | 2022-12-31 15:19 | XR_ITS ---
FINAL REPORT CLINICAL HISTORY: CVA symptoms FINDINGS: SINGLE-VIEW CHEST The heart size is normal. The mediastinum is normal. The lungs are clear. There is no pneumothorax. IMPRESSION: No acute cardiopulmonary process. Reviewed, Interpreted and Dictated by Jonathan Mack III, MD Transcribed by Catrina Curry Authenticated and [facility]
--- NOTE | 2022-12-31 15:19 | CT_ITS ---
FINAL REPORT TECHNIQUE: Thin section axial CT with IV contrast supplemented with multiplanar reconstruction under CT angiogram protocol. This study was performed with techniques to keep radiation doses as low as reasonably achievable (ALARA). Individualized dose reduction techniques using automated exposure control or adjustment of mA and/or kV according to the patient''s size were employed. NASCET criteria was utilized during interpretation. CLINICAL HISTORY: speech difficulty and RLE weakness, ? STROKE COMPARISON: None FINDINGS: Aortic arch: Arch shows no significant narrowing. Great vessel origins are widely patent. Note is made of an a variant right subclavian artery, a normal variant. Right carotid: There is calcified plaque at the right carotid bifurcation, without significant stenosis (less than 50%). Left carotid: There is calcified plaque at the left carotid bifurcation, without significant stenosis (less than 50%). Vertebral: Left vertebral artery is dominant. The right vertebral artery is hypoplastic. No significant stenosis is present. Reviewed, Interpreted and Dictated by Jonathan Mack III, MD Transcribed by Gwendolyn Davis Authenticated and [facility]
--- NOTE | 2022-12-31 15:19 | CT_ITS ---
FINAL REPORT TECHNIQUE: Thin section axial CT with IV contrast supplemented with multiplanar reconstruction under CT angiogram protocol. 3-D reconstructions were performed. This study was performed with techniques to keep radiation doses as low as reasonably achievable (ALARA). Individualized dose reduction techniques using automated exposure control or adjustment of mA and/or kV according to the patient''s size were employed. CLINICAL HISTORY: speech difficulty and RLE weakness, ? STROKE COMPARISON: None FINDINGS: The right artery is hypoplastic. The left vertebral artery is normal in appearance. The basilar and distal internal carotid arteries have an unremarkable appearance. No aneurysm is seen. Major intracranial vessels are patent without significant stenosis. IMPRESSION: No intracranial vascular abnormality identified. Reviewed, Interpreted and Dictated by Jonathan Mack III, MD Transcribed by Gwendolyn Davis Authenticated and [facility]
[2022-12-31 15:21] LABS: Basophils # 0.1 K/mm3 (0-0.2); Basophils % 0.6 % (0.1-2.0); Eosinophils # 0.4 K/mm3 (0.0-0.4); Eosinophils % 2.8 % (0.1-12.0); Hemoglobin 12.7 g/dL (12.2-16.2); Lymphocytes # 3.4 K/mm3 (0.7-4.5); Lymphocytes % 25.4 % (10-50); Mean Corpuscular HGB Conc 34.3 g/dL (31.8-35.4); Mean Corpuscular Hemoglobin 30.3 pg (27.0-31.2); Mean Corpuscular Volume 88.2 fl (81-99); Mean Platelet Volume 8.9 fl (7.4-10.4); Monocytes # 0.7 K/mm3 (0.1-1.0); Neutrophils # 8.9 K/mm3 (1.8-7.8); Neutrophils % 66.2 % (37.0-80.0); Platelet Count 366 K/mm3 (142-424); Red Cell Distribution Width 14.1 % (11.5-17.5); White Blood Count 13.5 K/mm3 (4.8-10.8)
--- NOTE | 2022-12-31 15:21 | PC.NURSE ---
Dr. Scott added CTA head and neck. Notified rad staff of new orders on pt, Dr. Scott states do not want to wait on labs.
[2022-12-31 15:25] LABS: Chloride 100 mmol/L (98-107); Sodium 138 mmol/L (136-145)
[2022-12-31 15:28] LABS: Alanine Aminotransferase 24 U/L (12-78); Albumin Level 4.5 g/dl (3.5-5.0); Albumin/Globulin Ratio 1.2 (1.1-1.8); Alkaline Phosphatase 139 U/L (38-126); Aspartate Amino Transferase 30 U/L (14-36); Bilirubin,Total 0.3 mg/dl (0.2-1.3); Blood Urea Nitrogen 55 mg/dl (7-17); Calcium 8.7 mg/dl (8.4-10.2); Carbon Dioxide 28 mmol/L (22.0-30.0); Creatinine Clearance Estimated 36 mL/min (50-200); Estimated Glomerular Filt Rate 27 ml/min (>60); GFR (African American) 33 ML/MIN (>60); Globulin 3.9 g/dL (1.3-3.2); Glucose 110 mg/dl (74-100); Total Protein,Serum 8.4 g/dl (6.3-8.2)
[2022-12-31 15:29] LABS: Prothrombin Time 9.8 seconds (10.1-12.5)
--- NOTE | 2022-12-31 15:34 | HMH.EDGENADL ---
Discharge Plan Disposition Patient Disposition: Admitted Chief Complaint: Neuro Symptoms/Deficit Prescriptions Prescriptions: No Action febuxostat 40 mg tablet 40 mg PO DAILY lisinopril 20 mg tablet 20 mg PO DAILY diazepam 5 mg tablet 5 mg PO BID PRN ipratropium-albuterol 0.5 mg-3 mg(2.5 mg base)/3 mL solution for nebulization 3 ml inhalation Q6H PRN (Reason: shortness of breath) hydrochlorothiazide 12.5 mg tablet 12.5 mg PO DAILY potassium chloride 10 mEq tablet,ER particles/crystals 10 meq PO DAILY duloxetine 30 mg capsule,delayed release(DR/EC) 30 mg PO DAILY 30 Days Qty: 30 2RF tramadol 50 mg tablet 50 mg PO Q8H PRN (Reason: pain) Qty: 90 0RF furosemide 20 MG tablet 20 mg PO BID Referrals Follow up/Referrals: Cuca Means APRN [Primary Care Provider] - See instructions Clinical Impressions Clinical Impression: LAURITA (acute kidney injury), Polypharmacy, Generalized weakness Discharge ED Provider: Charles Scott General Adult HPI General Chief complaint: Neuro Symptoms/Deficit Stated complaint: weakness Time Seen by Provider: 12/31/22 15:17 Mode of Arrival: Wheelchair Source of Information: Patient Limitations: No Limitations Description of Symptoms (Recalled from ER Triage Doc. by RN): Pt daughter reports pt has been having slurred speech since of last week. Pt daughter reports pt was not acting right on Thursday of this week while she had pt at PCP office, pt has been being seen for lower back pain. Pt was back to PCP office today for f/u visit, pt send from PCP office for stroke workup. History of Present Illness HPI narrative: 77-year-old female history of hypertension, hyperlipidemia, chronic back pain, TIA not on anticoagulation presenting with generalized weakness. Patient was seen 2 days prior to arrival by PCP. Was told that her kidney function was too high, and to hydrate. Patient continuing to get weak since last , approximately 5 days or 6 days prior to arrival. Daughter states that patient acts drunk and slurs her words. A friend was saying that she was falling asleep at lunch 1 day prior to arrival. Patient states that she has been taking her medications as prescribed. Patient is prescribed 2 diuretics, as well as Valium, but patient states that she has been taking diazepam once instead of twice daily. Related Data Home Medications Medication Instructions Recorded Confirmed furosemide 20 mg tablet 20 mg PO BID Fluid 01/02/21 12/31/22 febuxostat 40 mg tablet 40 mg PO DAILY 01/20/22 12/31/22 lisinopril 20 mg tablet 20 mg PO DAILY 01/20/22 12/31/22 diazepam 5 mg tablet 5 mg PO BID PRN 12/31/22 12/31/22 hydrochlorothiazide 12.5 mg tablet 12.5 mg PO DAILY 12/31/22 12/31/22 ipratropium 0.5 mg-albuterol 3 mg 3 ml inhalation Q6H PRN shortness 12/31/22 12/31/22 (2.5 mg base)/3 mL nebulization of breath soln potassium chloride 10 mEq 10 meq PO DAILY 12/31/22 12/31/22 tablet,extended release(part/cryst) Previous Rx's Medication Instructions Recorded duloxetine 30 mg capsule,delayed 30 mg PO DAILY 30 days #30 caps 12/29/22 release tramadol 50 mg tablet 50 mg PO Q8H PRN pain #90 tabs 12/29/22 Allergies Allergy/AdvReac Type Severity Reaction Status Date / Time Penicillins Allergy Intermediate Rash Verified 12/31/22 14:33 tetanus toxoid, adsorbed Allergy Unknown SWELLS Verified 12/31/22 14:33 [TETANUS TOXOID, ADSORBED] THROAT PFSH PFSH Disclaimer: The information contained in this section may have been updated after the patient was seen, as this information can be updated by other users. Medical History HLD (hyperlipidemia) HTN (hypertension), benign Surgical History H/O total hysterectomy Family History Other Heart a
--- NOTE | 2022-12-31 15:38 | HMH.ITSTN ---
ER DOC WANTED TO DO CTA HEAD AND NECK WITHOUT WAITING ON LABS
[2022-12-31 15:44] VITALS: BP 110/45; PULSE 106; RESP 20; O2SAT 96
[2022-12-31 16:29] LABS: Microscopic, Urine URINE MICROSCOPIC (MICROSCOPIC)
[2022-12-31 16:40] LABS: Appearance,Urine CLEAR (Clear); Bilirubin,Urine Negative (Negative); Blood, Urine TRACE-I (Negative); Color,Urine YELLOW (Yellow); Glucose,Urine (UA) Negative (Negative); Ketones,Urine Negative (Negative); Leukocyte Esterase,Urine Negative (Negative); Nitrate,Urine Negative (Negative); PH,Urine 5.5 (5.0-8.5); Protein,Urine Negative (Negative); Specific Gravity, Urine 1.015 (1.005-1.030); Urobilinogen,Urine 0.2 EU/dl (0.2)
--- NOTE | 2022-12-31 16:41 | PC.NURSE ---
Dr. Scott at BS
[2022-12-31 16:47] VITALS: BP 122/76; PULSE 102; O2SAT 96
--- NOTE | 2022-12-31 16:49 | PC.NURSE ---
rounded on pt, Dr. Scott at reassessing pt.
[2022-12-31 16:52] LABS: Squamous Epithelial Cell,Urine Occasional #/hpf (0-5)
[2022-12-31 16:59] LABS: Troponin I < 0.01 ng/ml (0.00-0.034)
[2022-12-31 17:59] LABS: NT Pro Brain Natriuretic Pep. 440 pg/mL (0-450)
--- NOTE | 2022-12-31 18:07 | PC.NURSE ---
ER speaking with hospital medicine for admission
--- NOTE | 2022-12-31 19:03 | EXP.HP ---
History of Present Illness *Admission Date: 12/31/22 *Reason for visit:: LAURITA *History of present illness: This is a 77-year-old female history of hypertension, hyperlipidemia, chronic back pain, TIA not on anticoagulation presented to ER for evaluation of generalized weakness. Patient was seen 2 days prior to arrival by PCP, and was told that her kidney function worsened. Patient continuing to get weak since last , approximately 5 days or 6 days prior to arrival. Patient states that she has been taking her medications as prescribed. Patient is prescribed 2 diuretics, as well as Valium, but patient states that she has been taking diazepam once instead of twice daily. Admitted for further work up. [facility] Disclaimer: The information contained in this section may have been updated after the patient was seen, as this information can be updated by other users. Medical History HLD (hyperlipidemia) HTN (hypertension), benign Surgical History H/O total hysterectomy Family History Other Heart attack Social History (Updated 12/31/22 @ 22:07 by Lakeshia Sheffield RN) Smoking Status: Former smoker tobacco type: cigarettes second hand exposure: No alcohol intake: current substance use type: denies use current occupational status: retired Travel in the last 8 weeks: None household members: spouse housing: house current occupational exposures/hazards: No caffeine: Yes Review of Systems Review of Systems Review of systems:: pertinent systems reviewed and negative unless documented below Meds Home Medications and Allergies Home Medications Medication Instructions Recorded Confirmed Type furosemide 20 mg tablet 20 mg PO BID Fluid 01/02/21 01/01/23 History febuxostat 40 mg tablet 40 mg PO DAILY Gout 01/20/22 01/01/23 History lisinopril 20 mg tablet 20 mg PO DAILY High Blood Pressure 01/20/22 01/01/23 History hydrochlorothiazide 12.5 mg tablet 12.5 mg PO DAILY Fluid 12/31/22 01/01/23 History ipratropium 0.5 mg-albuterol 3 mg 3 ml inhalation Q6HP PRN shortness 12/31/22 01/01/23 History (2.5 mg base)/3 mL nebulization of breath soln potassium chloride 10 mEq 10 meq PO DAILY Supplement 12/31/22 01/01/23 History tablet,extended release(part/cryst) diazepam 5 mg tablet 2.5 mg PO BIDP PRN Anxiety 10 days 01/01/23 01/01/23 Rx #0 tabs duloxetine 30 mg capsule,delayed 30 mg PO DAILY Mood 01/01/23 01/01/23 History release tramadol 50 mg tablet 50 mg PO Q8HP PRN Moderate Pain 01/01/23 01/01/23 History (Scale Score 5-6) New Prescriptions to Start Prescriptions: Allergies Allergy/AdvReac Type Severity Reaction Status Date / Time Penicillins Allergy Intermediate Rash Verified 12/31/22 14:33 tetanus toxoid, adsorbed Allergy Unknown SWELLS Verified 12/31/22 14:33 [TETANUS TOXOID, ADSORBED] THROAT Exam Data for Last 24 hours Vital signs and Labs for Last 24 Hours: Temp Pulse Resp BP Pulse Ox O2 Del Method 97.8 F 102 H 20 122/76 96 Room Air 12/31/22 15:03 12/31/22 16:47 12/31/22 15:44 12/31/22 16:47 12/31/22 16:47 12/31/22 16:47 Laboratory Results - last 24 hr 12/31/22 15:11: WBC 13.5 H, RBC 4.20, Hgb 12.7, Hct 37.0, MCV 88.2, MCH 30.3, MCHC 34.3, RDW 14.1, Plt Count 366, MPV 8.9, Neut % (Auto) 66.2, Lymph % (Auto) 25.4, [place] % (Auto) 5.0, Eos % (Auto) 2.8, Baso % (Auto) 0.6, Neut # (Auto) 8.9 H, Lymph # (Auto) 3.4, [place] # (Auto) 0.7, Eos # (Auto) 0.4, Baso # (Auto) 0.1, PT 9.8 L, INR 0.90, Sodium 138, Potassium 4.0, Chloride 100, Carbon Dioxide 28, Anion Gap 14.0, BUN 55 H, Creatinine 1.80 H, Estimated Creat Clear 36, Estimated GFR 27 L, Est GFR ( Amer) 33 L, Glucose 110 H, Calcium 8.7, Total Bilirubin 0.3, AST 30, ALT 24, Alkaline Phosphatase 139 H, Troponin I < 0.01, NT-Pro-B Na
[2022-12-31 19:47] LABS: Troponin I < 0.01 ng/ml (0.00-0.034)
--- NOTE | 2022-12-31 19:50 | PC.NURSE ---
called report to adele sheriff on 2nd floor and answered all questions
[2022-12-31 19:52] VITALS: BP 147/70; PULSE 100; RESP 20; TEMP 36.7; O2SAT 95
[2022-12-31 20:00] VITALS: O2SAT 94
[2022-12-31 20:30] VITALS: BP 158/77; PULSE 98; RESP 18; TEMP 36.1; O2SAT 98; BMI 36.6
[2022-12-31 22:15] LABS: Troponin I < 0.01 ng/ml (0.00-0.034)
--- NOTE | 2022-12-31 23:52 | PC.NURSE ---
Patient arrived to floor via wheelchair at 19:58.
[2023-01-01 04:00] VITALS: BP 144/79; PULSE 102; RESP 18; TEMP 36.3; O2SAT 93; BMI 36.7
[2023-01-01 07:37] LABS: Basophils # 0.1 K/mm3 (0-0.2); Basophils % 0.7 % (0.1-2.0); Eosinophils # 0.4 K/mm3 (0.0-0.4); Eosinophils % 3.3 % (0.1-12.0); Hematocrit 39.1 % (37.0-47.0); Hemoglobin 13.5 g/dL (12.2-16.2); Lymphocytes # 2.9 K/mm3 (0.7-4.5); Lymphocytes % 23.7 % (10-50); Mean Corpuscular HGB Conc 34.4 g/dL (31.8-35.4); Mean Corpuscular Hemoglobin 30.5 pg (27.0-31.2); Mean Corpuscular Volume 88.4 fl (81-99); Mean Platelet Volume 8.7 fl (7.4-10.4); Monocytes # 0.6 K/mm3 (0.1-1.0); Monocytes % 4.8 % (1.7-9.3); Neutrophils # 8.4 K/mm3 (1.8-7.8); Neutrophils % 67.5 % (37.0-80.0); Platelet Count 322 K/mm3 (142-424); Red Blood Count 4.42 M/mm3 (4.20-5.40); White Blood Count 12.4 K/mm3 (4.8-10.8)
[2023-01-01 07:42] LABS: Chloride 101 mmol/L (98-107); Potassium 3.7 mmoL/L (3.5-5.1); Sodium 139 mmol/L (136-145)
--- NOTE | 2023-01-01 07:43 | HMH.PHAINT1 ---
Pharmacy Intervention Comments: MEDICATION RECONCILIATION COMPLETED ON PATIENT USING EXTERNAL FILL HISTORY FROM PHARMACY. -PAPA REID, SABINAD
[2023-01-01 07:45] LABS: Alanine Aminotransferase 24 U/L (12-78); Albumin Level 4.3 g/dl (3.5-5.0); Albumin/Globulin Ratio 1.2 (1.1-1.8); Alkaline Phosphatase 132 U/L (38-126); Anion Gap 11.7 mEq/L (5-15); Aspartate Amino Transferase 33 U/L (14-36); Bilirubin,Total 0.4 mg/dl (0.2-1.3); Blood Urea Nitrogen 39 mg/dl (7-17); Carbon Dioxide 30 mmol/L (22.0-30.0); Creatinine Clearance Estimated 47 mL/min (50-200); Estimated Glomerular Filt Rate 36 ml/min (>60); GFR (African American) 44 ML/MIN (>60); Globulin 3.6 g/dL (1.3-3.2); Glucose 113 mg/dl (74-100); Total Protein,Serum 7.9 g/dl (6.3-8.2)
[2023-01-01 08:00] VITALS: BP 170/84; PULSE 100; RESP 20; TEMP 36.5; O2SAT 95
--- NOTE | 2023-01-01 10:12 | HMH.PTEV ---
Physical Therapy Evaluation Rehab PT IP Evaluation Start: 01/01/23 04:16 Freq: ONCE Status: Active Protocol: Document 01/01/23 10:06 XAVI (Rec: 01/01/23 10:12 XAVI [id number]) Subjective/History History History 77 yowf adm to [facility] with LAURITA. SHe has hx of HTN, HLD, Chronic LBP, TIA> She reports she lives alone, but has a caregiver 5 days per week to assist with some ADLs. No steps to enter the home and ambulates without AD at baseline. Subjective Subjective Currently she has no c/o and is agreable to mobility assessment. New diagnosis of cancer in past 12 No months? Rehab PT IP Eval Objective Appearance Patient Behavior Appropriate Patient Orientation Person,Place,Time Difficulty following instructions none Speech Pattern Clear Ambulation Patient Able to Ambulate Yes Ambulation Observation IP General Gait Pattern Observation Wide Based Gait Ambulation Distance (feet) 75 Ambulation Assistive Device None Ambulation Ability Supervision/Stand by Balance Ability to Arise Able, uses arms to help Sitting Balance Steady, safe Standing Balance Steady, wide stance Dynamic Sitting Balance Ability Good Dynamic Standing Balance Ability Good Transfers Bed Transfer Ability Supervision/Stand by Chair Transfer Ability Supervision/Stand by Sit to Stand Bed Transfer Ability Supervision/Stand by Sit to Stand Chair Transfer Ability Supervision/Stand by Rehab PT IP prob,goals,plan Problems Date of Evaluation: 01/01/23 Discharge Plan PT Discharge Plan Pt is currently at baseline for all mobility and is appropriate to return home once medically stable for d/c. Recommend Home Health therapy as appropriate. Eval Complexity Eval Charge Codes 64479 - High Complexity PHYSICIAN CERTIFICATION: I certify the specified therapy services for Neyda Ridley are required, authorized, and reviewed every 30 days.
--- NOTE | 2023-01-01 10:22 | SW/DCPLANNER ---
Addendum entered by Amna Dailey 01/01/23 14:34: Due to not being homebound [facility] can not accept patient. Patient/family prefer outpatient PT at [facility]: CM will fax order and schedule patient. Original Note: I spoke w/ this patient and her daughter regarding plans once medically stable for discharge. PT/OT evaluated patient and recommended returning home w/ home health services. Patient is agreeable to home health services and prefers to use [facility]. Patient information/order will be faxed to [facility] at time of discharge. Patient will discharge home today.
--- NOTE | 2023-01-01 10:24 | EXP.DC.SUM ---
General Admission date:: 12/31/22 Discharge date: 01/01/23 HPI HPI HPI: This is a 77-year-old female history of hypertension, hyperlipidemia, chronic back pain, TIA not on anticoagulation presented to ER for evaluation of generalized weakness. Patient was seen 2 days prior to arrival by PCP, and was told that her kidney function worsened. Patient continuing to get weak since last , approximately 5 days or 6 days prior to arrival. Patient states that she has been taking her medications as prescribed. Patient is prescribed 2 diuretics, as well as Valium, but patient states that she has been taking diazepam once instead of twice daily. Admitted for further work up. Hospital Course Hospital Course Hospital Course: 77-year-old female history of hypertension, hyperlipidemia, chronic back pain, TIA not on anticoagulation presented to ER for evaluation of generalized weakness. Patient was seen 2 days prior to arrival by PCP, and was told that her kidney function worsened. on arrival labs work was obtained. findings are significant for and increased creatinine, marked diminished GFR, consistent with superimposed kidney injury. CXR, CT of head and neck are negative. imaging personally reviewed. After discussion with ER provider and an extensive home medication review. Agreed for admission for further management and work up. Patient's mentation improved to baseline by morning. Strong concern at this time the symptoms related to polypharmacy in combination with her LAURITA. Kidney function improved. Stable for discharge home. Problems addressed as follows: -Acute on chronic kidney injury, more likely due to prerenal azotemia and overdiuresis. Admitted for medical services. Administered IV fluids with good improvement in kidney function. Creatinine improved to 1.4 from 1.8. BUN down from 55-39. Tolerating p.o. intake. We will hold diuretics at this time. Recommend follow-up within a week with PCP with repeat labs to monitor kidney function and electrolytes. - Polypharmacy: -Depression/anxiety Concern that her Valium usage would explain her somnolence and slurred speech. Sedating medications held admission. As she been on for an extended period of time, recommend using as needed no more than once daily 2.5 mg over the next 5 to 7 days and wean off this medication. Would avoid benzos in the future. Okay to resume Cymbalta at discharge. Would consider addition of SSRI or SNRI at follow-up. - HTN, HLD, Chronic back pain: Olding diuretics. Continue fluid Oxistat gout. We recommend changing tramadol to alternate pain regimen as tramadol can cause confusion and mentation changes in elderly patients. Contraindicated medication with Beers criteria. Continue just Tylenol for now. Stable for discharge home. Given weakness, PT and OT evaluated. Patient at baseline. Will refer for home health however for evaluation as an outpatient for PT and OT. Exam Data for Last 24 hours Vital signs and Labs for Last 24 Hours: Temp Pulse Resp BP Pulse Ox O2 Del Method 97.7 F 100 H 20 170/84 H 95 Room Air 01/01/23 08:00 01/01/23 08:00 01/01/23 08:00 01/01/23 08:00 01/01/23 08:00 01/01/23 09:00 Laboratory Results - last 24 hr 12/31/22 15:11: WBC 13.5 H, RBC 4.20, Hgb 12.7, Hct 37.0, MCV 88.2, MCH 30.3, MCHC 34.3, RDW 14.1, Plt Count 366, MPV 8.9, Neut % (Auto) 66.2, Lymph % (Auto) 25.4, Chicot % (Auto) 5.0, Eos % (Auto) 2.8, Baso % (Auto) 0.6, Neut # (Auto) 8.9 H, Lymph # (Auto) 3.4, Chicot # (Auto) 0.7, Eos # (Auto) 0.4, Baso # (Auto) 0.1, PT 9.8 L, INR 0.90, Sodium 138, Potassium 4.0, Chloride 100, Carbon Dioxide 28, Anion Gap 14.0, BUN 55 H, Creatinine 1.80 H, Estimated Creat Clear 36, Estimated GFR 27 L, Est GFR ( Amer) 33 L, Glucose 110 H, Calcium 8.7, Total Bilirubin 0.3, AST 30, ALT 24, Alkaline Phosphatase 139 H, Troponin I < 0.01, NT-Pro-B Natriuret Pep 440, Total Protein 8.4 H, Albumin 4.5, Globulin 3.9 H, Albumin/Globulin Rat
--- NOTE | 2023-01-01 10:36 | HMH.OTEV ---
OT Inpatient Evaluation Rehab OT IP Evaluation Start: 01/01/23 04:16 Freq: ONCE Status: Active Protocol: Document 01/01/23 10:34 [email or web address] (Rec: 01/01/23 10:36 [id number] Rehab OT IP Assessment Subjective History Pt oriented x 4 on arrival; pt agreeable to OT evaluation. Pt's daughter and son present and supportive. 77 yowf adm to [facility] with LAURITA. SHe has hx of HTN, HLD, Chronic LBP, TIA> She reports she lives alone, but has a caregiver 5 days per week to assist with some IADLs. These caregivers stay for ~4 hours a day. Pt is normally independent with all ADLs. She does not require any type of AE during transfers. Subjective I feel much better today. Objective Patient Orientation Person,Place,Birthday,Month Upper Extremity Gross ROM WFL Bed Mobility bed mobility-scooting,bed mobility - supine/sit Assist Level Supervision/Stand by Transfer Training Sit/Stand Transfer Assist Level Supervision/Stand by Chair Transfer Ability Supervision/Stand by Chair Transfer Technique Sit to/from Ambulatory Chair Transfer Assistive Devices None Lower Body Dressing Ability Standby Assistance Rehab OT IP prob,goals,plan Problems Date of Evaluation: 01/01/23 Rehab Potential Rehab Potential Innapropriate for Skilled Therapy Equipment Needs Assistive Devices None / NA Discharge Plan OT Discharge Plan Pt appears to be at her baseline with functional transfers and ADL independence . Pt can return home with aide assistance 5x's a week. Home health recommendation for OT evaluation for home safety . Eval Complexity Eval Charge Codes 05590 - Low Complexity PHYSICIAN CERTIFICATION: I certify the specified therapy services for Neyda Ridley are required, authorized, and reviewed every 30 days.
--- NOTE | 2023-01-02 12:13 | CARE MANAGER ---
CM called and spoke with patient's daughter. She states that her mother is doing well and has made the changes in medication that was ordered at discharge. Patient has an appt on 01/12 @ 1000 with outpatient PT due to not being home bound (doesn't meet for services).
== END 2023-01-01 11:22 | disposition home or self-care (01) ==
LOC: ER 18:27 → 2ND 18:36
PROVIDERS: Admitting Provider Internal Medicine Adolescent Medicine; Emergency Provider Emergency Medicine; PCP Nurse Practitioner Family; Visit Provider Internal Medicine Adolescent Medicine
DX: N17.9 Acute kidney failure, unspecified (principal); N18.4 Chronic kidney disease, stage 4 (severe); Z79.899 Other long term (current) drug therapy; R53.1 Weakness; I12.9 Hypertensive chronic kidney disease with stage 1 through stage 4 chronic kidney disease, or unspecified chronic kidney disease; E78.5 Hyperlipidemia, unspecified; Z87.39 Personal history of other diseases of the musculoskeletal system and connective tissue; E66.9 Obesity, unspecified; Z68.37 Body mass index [BMI] 37.0-37.9, adult; R06.9 Unspecified abnormalities of breathing
CPT/HCPCS: 36415; 70450; 70496; 70498; 71045; 80053; 81001; 83735; 83880; 84484; 85025; 85610; 93005; 97163; 97165; 99285; G0378; Q9967

== ENCOUNTER → 2023-01-07 13:24 | Outpatient (CLI) | payer MEDICARE, MEDICAID, SELFPAY ==
[2023-01-07 13:43] LABS: Basophils # 0.1 K/mm3 (0-0.2); Basophils % 0.5 % (0.1-2.0); Eosinophils # 0.3 K/mm3 (0.0-0.4); Eosinophils % 2.9 % (0.1-12.0); Hematocrit 38.8 % (37.0-47.0); Hemoglobin 12.8 g/dL (12.2-16.2); Lymphocytes # 2.1 K/mm3 (0.7-4.5); Lymphocytes % 18.8 % (10-50); Mean Corpuscular HGB Conc 32.9 g/dL (31.8-35.4); Mean Corpuscular Hemoglobin 30.4 pg (27.0-31.2); Mean Corpuscular Volume 92.4 fl (81-99); Mean Platelet Volume 9.3 fl (7.4-10.4); Monocytes # 0.6 K/mm3 (0.1-1.0); Monocytes % 5.1 % (1.7-9.3); Neutrophils % 72.8 % (37.0-80.0); Platelet Count 281 K/mm3 (142-424); Red Cell Distribution Width 14.2 % (11.5-17.5)
[2023-01-07 15:29] LABS: Alanine Aminotransferase 22 U/L (12-78); Albumin Level 4.1 g/dl (3.5-5.0); Albumin/Globulin Ratio 1.3 (1.1-1.8); Alkaline Phosphatase 118 U/L (38-126); Anion Gap 14.6 mEq/L (5-15); Aspartate Amino Transferase 30 U/L (14-36); Bilirubin,Total 0.3 mg/dl (0.2-1.3); Blood Urea Nitrogen 18 mg/dl (7-17); Calcium 9.2 mg/dl (8.4-10.2); Carbon Dioxide 30 mmol/L (22.0-30.0); Chloride 101 mmol/L (98-107); Estimated Glomerular Filt Rate 48 ml/min (>60); GFR (African American) 58 ML/MIN (>60); Globulin 3.2 g/dL (1.3-3.2); Glucose 93 mg/dl (74-100); Potassium 4.6 mmoL/L (3.5-5.1); Sodium 141 mmol/L (136-145); Total Protein,Serum 7.3 g/dl (6.3-8.2)
== END ==
PROVIDERS: PCP Nurse Practitioner Family; Visit Provider Nurse Practitioner Family
DX: D50.9 Iron deficiency anemia, unspecified (principal); N18.9 Chronic kidney disease, unspecified
CPT/HCPCS: 36415; 80053; 85025

== ENCOUNTER 2023-01-12 09:55 | Outpatient (RCR) | payer MEDICARE, MEDICAID, SELFPAY ==
--- NOTE | 2023-01-12 11:22 | HMH.PTOPEV ---
PT Outpatient Evaluation Rehab PT Outpatient Evaluation Start: 01/12/23 10:00 Freq: Status: Active Protocol: Document 01/12/23 10:00 DAVID (Rec: 01/12/23 11:22 DAVID [id number]) E-signed By iVnita Montes, PT Outpatient Therapy Subjective History Subjective History Pt is a 77 y/o female who reports to initial PT evaluation with her with her daughter and caregiver. Pt reports she was recently hospitalized 2 weeks ago for an LAURITA. Pt reports she stayed in the hospital overnight and then returned home. Pt reports she is doing well overall and feeling better. Pt reports she still has some weakness of her LE>UE and feels fatigued with prolonged activity. Pt reports difficulty walking >5 minutes at a time due to fatigue/weakness. Pt denies use of an AD or falls. Pt denies dizziness or paresthesia. Pt reports she is independent with all ADLs and iADLs. Pt reports she has a caregiver who helps her with cleaning, cooking, and laundry who is with her Thu-Thursday from -. Pt reports otherwise she lives alone but has family that checks on her everyday. Medical History: Gout attack, History of osteoarthritis, HLD (hyperlipidemia), HTN ( hypertension), Lumbago SpO2 97% at rest, HR 72 at rest 5x sit to stand: 22 seconds from elevated table height without UE support New diagnosis of cancer in past 12 No months? Chief Complaint Weakness Current Functional Limitations Housework,Squatting,Walking, Stairs,Balance Shoulder/Elbow Eval Shoulder Objective Measurements Shoulder MMT Bilateral Shoulder Abduction Strength Grade 4 Good Shoulder Extension Strength Grade 4 Good Shoulder Flexion Strength Grade 4 Good Elbow Objective Measurements Elbow MMT Bilateral Elbow Flexion Strength Grade 4- Good- Elbow Extension Strength Grade 4- Good- Lumbopelvic Eval Manual Muscle Test Knee Extension Strength Grade 4 Good Knee Flexion Strength Grade 4 Good Hip Abduction Strength Grade 4- Good- Hip Adduction Strength Grade 4- Good- Hip Extension Strength Grade 4- Good- Ankle Dorsiflexion Strength Grade 5 Normal Outpatient Therapy Assessment Impairments Problems/Impairmments Impaired Strength,Impaired Endurance,Impaired Walking, Impaired Household Care, Impaired Stair Climbing, Impaired Squatting,Impaired Self Care/Self Management Prognosis Rehab Potential Good Clinical Impression Consistent with Diagnosis Yes Group Home Goals Number of Weeks 4-6 Increase Strength Yes: Improve UE/LE strength to at least 4+/5 to assist with function Increase Endurance Yes: Perform NuStep UE/LE for 15' with RPE 5/10 or less to assist with function Improve Transfers Yes: 5x sit to stand to 15 or less to decrease fall risk Increase Ability to Walk Yes: 5-10' with RPE 5/10 or less Improve Self Care/Self Management Yes Patient to be Ind w/ Advanced HEP Yes Outpatient Therapy Plan of Care Treatment Plan May Include Therapeutic Exercise Including Home Yes Exercise Program Manual Therapy Techniques Yes Neuromuscular Re-education Yes Therapeutic Activities to Return to Yes Previous Functional/Work Level Gait Training Yes ADL/Self Care Education Yes Group Therapy for Medicare Yes Eval/Re-Eval Yes Frequency Times per week 2 Duration Number of Weeks 4-6 Addendums This patient is a candidate for social No or vocational rehab? Patient/Guardian verbally acknowledges Yes understanding of treatment program and consents to further treatment? Patient/Guardian verbally acknowledges Yes understanding of diagnosis, prognosis and goals for treatment? Eval Complexity PT Charges 58054 - Low Complexity PHYSICIAN CERTIFICATION: I certify the specified therapy services for Neyda Ridley are required, authorized, and reviewed every 30 days.
== END 2023-01-12 11:00 | disposition home or self-care (01) ==
LOC: PT 09:55
PROVIDERS: PCP Nurse Practitioner Family; Visit Provider Internal Medicine Adolescent Medicine
DX: R53.1 Weakness (principal); Z87.39 Personal history of other diseases of the musculoskeletal system and connective tissue
CPT/HCPCS: 97163

== ENCOUNTER → 2023-01-21 14:01 | Outpatient (CLI) | payer MEDICARE, MEDICAID, SELFPAY ==
[2023-01-21 14:53] LABS: Alanine Aminotransferase 25 U/L (12-78); Albumin Level 4.2 g/dl (3.5-5.0); Albumin/Globulin Ratio 1.4 (1.1-1.8); Alkaline Phosphatase 100 U/L (38-126); Anion Gap 17.7 mEq/L (5-15); Aspartate Amino Transferase 30 U/L (14-36); Bilirubin,Total 0.3 mg/dl (0.2-1.3); Blood Urea Nitrogen 18 mg/dl (7-17); Calcium 9.2 mg/dl (8.4-10.2); Carbon Dioxide 25 mmol/L (22.0-30.0); Chloride 104 mmol/L (98-107); Estimated Glomerular Filt Rate 53 ml/min (>60); GFR (African American) 65 ML/MIN (>60); Globulin 3.1 g/dL (1.3-3.2); Glucose 101 mg/dl (74-100); Potassium 4.7 mmoL/L (3.5-5.1); Sodium 142 mmol/L (136-145); Total Protein,Serum 7.3 g/dl (6.3-8.2)
== END ==
PROVIDERS: PCP Nurse Practitioner Family; Visit Provider Nurse Practitioner Family
DX: N18.9 Chronic kidney disease, unspecified (principal)
CPT/HCPCS: 80053

== ENCOUNTER 2023-03-30 09:09 | Outpatient (POV) | payer MEDICARE, MEDICAID, SELFPAY | END 2023-03-30 23:59 | disposition home or self-care (01) | LOC: SC 09:10 | PROVIDERS: Visit Provider Nurse Practitioner | DX: Z00.00 Encounter for general adult medical examination without abnormal findings (principal) ==

== ENCOUNTER 2023-03-30 09:44 | Outpatient (CLI) | payer MEDICARE, MEDICAID, SELFPAY ==
[2023-03-30 09:57] LABS: Microscopic, Urine URINE MICROSCOPIC (MICROSCOPIC)
[2023-03-30 10:20] LABS: Hematocrit 40.3 % (37.0-47.0); Mean Corpuscular HGB Conc 32.3 g/dL (31.8-35.4); Mean Corpuscular Volume 89.8 fl (81-99); Platelet Count 347 K/mm3 (142-424); Red Blood Count 4.49 M/mm3 (4.20-5.40); White Blood Count 14.1 K/mm3 (4.8-10.8)
[2023-03-30 10:45] LABS: Appearance,Urine CLOUDY (Clear); Bilirubin,Urine Negative (Negative); Blood, Urine Negative (Negative); Color,Urine YELLOW (Yellow); Glucose,Urine (UA) Negative (Negative); Ketones,Urine Negative (Negative); Leukocyte Esterase,Urine Negative (Negative); Nitrate,Urine Negative (Negative); Protein,Urine Negative (Negative); Specific Gravity, Urine 1.025 (1.005-1.030); Urobilinogen,Urine 0.2 EU/dl (0.2)
[2023-03-30 10:54] LABS: Total Protein,Urine Random < 5.0 mg/dL (0.0-12.0)
[2023-03-30 10:59] LABS: Albumin Level 4.1 g/dl (3.5-5.0); Chloride 105 mmol/L (98-107); Potassium 4.2 mmoL/L (3.5-5.1); Sodium 140 mmol/L (136-145)
[2023-03-30 11:01] LABS: Bacteria,Urine 2+ /lpf; RBC,Urine Occasional #/hpf (0-3); Squamous Epithelial Cell,Urine 20-50 #/hpf (0-5)
[2023-03-30 11:02] LABS: Anion Gap 11.2 mEq/L (5-15); Blood Urea Nitrogen 24 mg/dl (7-17); Carbon Dioxide 28 mmol/L (22.0-30.0); Estimated Glomerular Filt Rate 48 ml/min (>60); GFR (African American) 58 ML/MIN (>60); Phosphorous 3.5 mg/dl (2.5-4.5)
[2023-03-30 11:03] LABS: Calcium 8.9 mg/dl (8.4-10.2); Glucose 92 mg/dl (74-100)
[2023-03-30 11:18] LABS: Intact Parathyroid Hormone 99.6 pg/mL (7.5-53.5)
[2023-03-31 10:16] LABS: Creatinine,Urine Random 135 mg/dL (Not Estab.)
== END 2023-03-30 23:59 ==
PROVIDERS: PCP Nurse Practitioner Family; Visit Provider Nurse Practitioner
DX: N18.31 Chronic kidney disease, stage 3a (principal); E55.9 Vitamin D deficiency, unspecified; B96.89 Other specified bacterial agents as the cause of diseases classified elsewhere; R82.90 Unspecified abnormal findings in urine
CPT/HCPCS: 36415; 80069; 81001; 82306; 82570; 83970; 84155; 85014; 85018; 85048; 85049; 87086

== ENCOUNTER 2023-04-15 12:09 | Outpatient (CLI) | payer MEDICARE, MEDICAID, SELFPAY ==
[2023-04-15 12:23] LABS: Basophils # 0.1 K/mm3 (0-0.2); Basophils % 0.8 % (0.1-2.0); Eosinophils # 0.2 K/mm3 (0.0-0.4); Eosinophils % 1.6 % (0.1-12.0); Hematocrit 41.8 % (37.0-47.0); Hemoglobin 13.8 g/dL (12.2-16.2); Lymphocytes # 3.1 K/mm3 (0.7-4.5); Lymphocytes % 22.1 % (10-50); Mean Corpuscular HGB Conc 32.9 g/dL (31.8-35.4); Mean Corpuscular Hemoglobin 29.7 pg (27.0-31.2); Mean Corpuscular Volume 90.4 fl (81-99); Mean Platelet Volume 8.2 fl (7.4-10.4); Monocytes # 0.6 K/mm3 (0.1-1.0); Monocytes % 4.5 % (1.7-9.3); Neutrophils # 10.1 K/mm3 (1.8-7.8); Neutrophils % 71.1 % (37.0-80.0); Platelet Count 341 K/mm3 (142-424); Red Blood Count 4.63 M/mm3 (4.20-5.40); White Blood Count 14.2 K/mm3 (4.8-10.8)
[2023-04-15 13:16] LABS: Chloride 106 mmol/L (98-107); Potassium 4.8 mmoL/L (3.5-5.1); Sodium 138 mmol/L (136-145)
[2023-04-15 13:19] LABS: Alanine Aminotransferase 24 U/L (12-78); Albumin Level 4.3 g/dl (3.5-5.0); Albumin/Globulin Ratio 1.3 (1.1-1.8); Alkaline Phosphatase 138 U/L (38-126); Anion Gap 12.8 mEq/L (5-15); Aspartate Amino Transferase 28 U/L (14-36); Bilirubin,Total 0.4 mg/dl (0.2-1.3); Blood Urea Nitrogen 23 mg/dl (7-17); Calcium 9.8 mg/dl (8.4-10.2); Carbon Dioxide 24 mmol/L (22.0-30.0); Estimated Glomerular Filt Rate 53 ml/min (>60); GFR (African American) 65 ML/MIN (>60); Globulin 3.2 g/dL (1.3-3.2); Glucose 97 mg/dl (74-100); Total Protein,Serum 7.5 g/dl (6.3-8.2)
[2023-04-15 13:29] LABS: NT Pro Brain Natriuretic Pep. 219 pg/mL (0-450)
[2023-04-15 13:50] LABS: Thyroid Stimulating Hormone 1.49 uIU/mL (0.465-4.68)
== END 2023-04-15 23:59 ==
LOC: LAB.DROPOF 12:09
PROVIDERS: PCP Nurse Practitioner Family; Visit Provider Nurse Practitioner Family
DX: R00.0 Tachycardia, unspecified (principal); E78.5 Hyperlipidemia, unspecified; I10 Essential (primary) hypertension; I50.9 Heart failure, unspecified
CPT/HCPCS: 80053; 83880; 84443; 85025

== ENCOUNTER 2023-09-26 14:49 | Observation (INO) | payer MEDICARE, MEDICAID, SELFPAY ==
[2023-09-26] VITALS (9 sets, daily range): BP systolic 122–216; BP diastolic 71–112; PULSE 123–131; RESP 16–20; TEMP 37–37.2; O2SAT 93–100; BMI 32.8; BMI 35.2
--- NOTE | 2023-09-26 14:46 | CT_ITS ---
PROCEDURE INFORMATION: Exam: CTA Neck With Contrast Exam date and time: 09/26/2023 4:16 PM Age: 77 years old Clinical indication: Injury or trauma; Fall; Blunt trauma; Head; Additional info: Trauma, critical injury suspected TECHNIQUE: Imaging protocol: Computed tomographic angiography of the neck with contrast. Exam focused on the cervical segments of the vasculature. 3D rendering (Not supervised by radiologist): MIP and/or 3D reconstructed images were created by the technologist. Radiation optimization: All CT scans at this facility use at least one of these dose optimization techniques: automated exposure control; mA and/or kV adjustment per patient size (includes targeted exams where dose is matched to clinical indication); or iterative reconstruction. Contrast material: ISO 370; Contrast volume: 100 ml; Contrast route: INTRAVENOUS (IV); COMPARISON: CT ANGIO NECK 12/31/2022 3:31 PM FINDINGS: Right common carotid artery: Calcification and plaquing at the right common carotid bifurcation. No significant stenosis. Right internal carotid artery: Calcification of the proximal right ICA. Stenosis measures less than 50%. Right external carotid artery: No occlusion or stenosis of the origin. Left common carotid artery: Calcification at the distal left common carotid artery. Stenosis measures less than 50%. Left internal carotid artery: Calcification and plaquing at the proximal left internal carotid artery. Stenosis measures less than 50%. Left external carotid artery: No occlusion or stenosis of the origin. Right vertebral artery: No stenosis. No dissection or occlusion. Left vertebral artery: Left vertebral artery is dominant. 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 Soft tissues: Right facial soft tissue injury. Bones/joints: There are degenerative changes involving the spine. IMPRESSION: No acute vascular pathology. REFERENCES: NASCET CRITERIA. The degree of stenosis in the cervical segment of the internal carotid artery is based on NASCET criteria. Normal is no stenosis. Mild is less than 50% stenosis. Moderate is 50-69% stenosis. Severe is 70% to 99% stenosis. Total occlusion is no detectable patent lumen.
--- NOTE | 2023-09-26 14:46 | CT_ITS ---
PROCEDURE INFORMATION: Exam: CTA Abdomen and Pelvis With Contrast Exam date and time: 09/26/2023 4:21 PM Age: 77 years old Clinical indication: Injury or trauma; Fall; Blunt trauma; Other: Abd; Additional info: Trauma, critical injury suspected TECHNIQUE: Imaging protocol: Computed tomographic angiography of the abdomen and pelvis with contrast. Exam focused on the arteries. 3D rendering (Not supervised by radiologist): MIP and/or 3D reconstructed images were created by the technologist. Radiation optimization: All CT scans at this facility use at least one of these dose optimization techniques: automated exposure control; mA and/or kV adjustment per patient size (includes targeted exams where dose is matched to clinical indication); or iterative reconstruction. Contrast material: ISO 370; Contrast volume: 80 ml; Contrast route: INTRAVENOUS (IV); COMPARISON: CT BONY PELVIS 09/26/2023 4:[address] without contrast 03/29/2016. FINDINGS: Diaphragm: Small hiatal hernia Aorta: No aortic aneurysm. No aortic dissection. Celiac trunk and mesenteric arteries: [id number]-ad-jyspcf narrowing of the origin of the SMA and moderate atherosclerotic narrowing of the origin of the celiac artery. Renal arteries: No occlusion or significant stenosis. Right iliac arteries: No occlusion or significant stenosis. Left iliac arteries: No occlusion or significant stenosis. Liver: No mass. Gallbladder and biliary ducts: Unremarkable. No calcified stones. No ductal dilation. Pancreas: Unremarkable. No mass. No ductal dilation. Spleen: Unremarkable. No splenomegaly. Adrenal glands: Unremarkable. No mass. Kidneys and ureters: Mild to moderate right-sided hydroureteronephrosis extending to the level of the mid to distal right ureter with transition point as the ureter crosses medial to the iliac vessels with normal caliber more distal ureter. No obvious obstructing process in this region identified. No obstructing stone. A similar finding was present on CT of 03/29/2016 but appears more pronounced currently. Kidneys otherwise unremarkable. No solid mass. No hydronephrosis on the left. Stomach and bowel: Hysterectomy. Multiple diverticula of the sigmoid and descending colon. Colon otherwise unremarkable with no evidence of diverticulitis. GI tract structures otherwise unremarkable with no evident wall thickening allowing for incomplete distention. Appendix: No evidence of appendicitis. Intraperitoneal space: Unremarkable. No free air. No significant fluid collection. Lymph nodes: Unremarkable. No enlarged lymph nodes. Urinary bladder: Unremarkable. No mass. Reproductive: Unremarkable as visualized. Bones/joints: No acute fracture. Soft tissues: Unremarkable. Other findings: Benign-appearing renal cysts are noted bilaterally. No follow-up advised. IMPRESSION: 1. No acute abnormalities of the abdomen and pelvis. Nonemergent findings as above. 2. Dwogkoxe-yr-uptopp narrowing of the origin of the SMA and moderate atherosclerotic narrowing of the origin of the celiac artery. 3. Mild to moderate right-sided hydroureteronephrosis extending to the level of the mid to distal right ureter with transition point as the ureter crosses medial to the iliac vessels with normal caliber more distal ureter. This finding noted previously although increased on the current study which might be due to increased distension related to the contrast excretion on this contrast study. This finding may be due to physiologic obstruction related to compression from the iliac vessels. Other occult obstructing process not absolutely excluded. Advise clinical assessment and follow-up. 4. Additional nonemergent findings as above.
--- NOTE | 2023-09-26 14:46 | CT_ITS ---
PROCEDURE INFORMATION: Exam: CT Head Without Contrast Exam date and time: 09/26/2023 4:16 PM Age: 77 years old Clinical indication: Injury or trauma; Fall; Blunt trauma (contusions or hematomas); Additional info: Trauma, critical injury suspected TECHNIQUE: Imaging protocol: Computed tomography of the head without contrast. Radiation optimization: All CT scans at this facility use at least one of these dose optimization techniques: automated exposure control; mA and/or kV adjustment per patient size (includes targeted exams where dose is matched to clinical indication); or iterative reconstruction. COMPARISON: CT ANGIO HEAD 09/26/2023 4:16 PM FINDINGS: Brain: Age-related volume loss. Decreased attenuation of the supratentorial white matter is likely secondary to chronic microvascular ischemia. No acute intracranial hemorrhage, midline shift or intracranial mass effect. Chronic lacunar infarct at the right basal ganglia/arango radiata. Cerebral ventricles: Ventriculomegaly is commensurate for degree of volume loss. Paranasal sinuses: Mild paranasal sinus disease. Mastoid air cells: Visualized mastoid air cells are well aerated. Bones: Facial bones are better evaluated on dedicated exam. No acute calvarial fracture. Soft tissues: Right facial soft tissue injury. Left posterior scalp soft tissue injury. IMPRESSION: No acute intracranial abnormality.
--- NOTE | 2023-09-26 14:46 | CT_ITS ---
PROCEDURE INFORMATION: Exam: CT Pelvis Without Contrast; Skeletal Exam date and time: 09/26/2023 4:10 PM Age: 77 years old Clinical indication: Injury or trauma; Fall; Blunt trauma (contusions or hematomas); Bilateral; Pelvic region; Additional info: Trauma, critical injury suspected TECHNIQUE: Imaging protocol: Computed tomography of the pelvis without contrast. Exam focused on the skeleton. Radiation optimization: All CT scans at this facility use at least one of these dose optimization techniques: automated exposure control; mA and/or kV adjustment per patient size (includes targeted exams where dose is matched to clinical indication); or iterative reconstruction. COMPARISON: ABDPELW/O CT ABD PELVIS W/O CONTRAST 03/29/2016 9:23 AM FINDINGS: Reproductive: Residual right ovary noted measuring 2.9 x 2.0 x 1.3 cm similar in size to prior CT without contrast dating 03/29/2016. The right ovary contains a central fat density component measuring 14 mm that previously measured 24 mm. Surrounding this fat density component is a soft tissue density component that has increased in the interval measuring 7 mm in thickness previously measured around 3 mm. Residual left ovary noted. Interval development of a 13 mm benign-appearing cyst in the left ovary. Bones/joints: Unremarkable. No acute fracture. No dislocation. Soft tissues: See Reproductive finding. IMPRESSION: 1. No acute fracture. 2. Residual right ovary noted which contains central fat density component and surrounding soft tissue density component. The size of the right ovary is similar to previous but there has been interval change in the morphology with increased thickness of the soft tissue density component decreased size of the fat density component. These differences are of uncertain and doubtful significance and may be physiologic type change. As a precaution consider additional follow-up CT pelvis without contrast in 3-6 months to ensure stability. 3. Interval development of a benign-appearing cyst left ovary that can be reassessed at time of follow-up as well.
--- NOTE | 2023-09-26 14:46 | CT_ITS ---
PROCEDURE INFORMATION: Exam: CT Lumbar Spine Without Contrast Exam date and time: 09/26/2023 4:07 PM Age: 77 years old Clinical indication: Injury or trauma; Fall; Blunt trauma (contusions or hematomas); Patient HX: PT fell off porch at 10pm last night and was found today. Laceration to head, right sided abrasions to face, facial swelling. ; Additional info: Trauma, critical injury suspected TECHNIQUE: Imaging protocol: Computed tomography of the lumbar spine without contrast. Radiation optimization: All CT scans at this facility use at least one of these dose optimization techniques: automated exposure control; mA and/or kV adjustment per patient size (includes targeted exams where dose is matched to clinical indication); or iterative reconstruction. COMPARISON: MR LUMBAR SPINE WO CON 10/22/2020 1:05 PM FINDINGS: Bones/joints: No acute fracture identified. Advanced multilevel degenerative disc disease involving essentially all levels of the lumbar spine with disc narrowing, spurring and vacuum phenomenon. At L1-L2 prominent bulging disc spur complex with facet arthritic changes resulting in moderate central canal and ndpo-yh-fdgnqcss bilateral foramina narrowing. At L2-L3 bulging disc spur complex and facet arthritic changes result in mild central canal and moderate left and bvix-fm-nquwyzck right foramina narrowing. At L3-L4 bulging disc spur complex and facet arthritic changes result in peyicjst-vz-mvuxlv central canal and moderate left and sxje-aw-cvkdplrf right foramina narrowing. At L4-L5 bulging disc spur complex and facet arthritic changes result in segohhbl-xq-ixaxku central canal and quhv-ij-kxdtjbgd bilateral foramina narrowing. At L5-S1 mildly bulging disc and facet arthritic changes result in lfic-lh-lyijqawr foramina narrowing. Soft tissues: Unremarkable. IMPRESSION: Advanced multilevel degenerative changes with multilevel central canal and foramina narrowing. No acute abnormality.
--- NOTE | 2023-09-26 14:46 | CT_ITS ---
PROCEDURE INFORMATION: Exam: CTA Chest With Contrast Exam date and time: 09/26/2023 4:21 PM Age: 77 years old Clinical indication: Injury or trauma; Fall; Blunt trauma (contusions or hematomas); Additional info: Trauma, critical injury suspected TECHNIQUE: Imaging protocol: Computed tomographic angiography of the chest with contrast. Exam focused on the arteries. 3D rendering (Not supervised by radiologist): MIP and/or 3D reconstructed images were created by the technologist. Radiation optimization: All CT scans at this facility use at least one of these dose optimization techniques: automated exposure control; mA and/or kV adjustment per patient size (includes targeted exams where dose is matched to clinical indication); or iterative reconstruction. Contrast material: ISO 370; Contrast volume: 100 ml; Contrast route: INTRAVENOUS (IV); COMPARISON: CR XR CHEST PORTABLE 12/31/2022 3:53 PM FINDINGS: Pulmonary arteries: Normal. No pulmonary emboli. Aorta: Unremarkable. No aortic aneurysm. No aortic dissection. Incidental aberrant right subclavian artery. No traumatic abnormality. Lungs: Unremarkable. No consolidation. No masses. Pleural spaces: Unremarkable. No pneumothorax. No pleural effusion. Heart: Unremarkable. No cardiomegaly. No pericardial effusion. Lymph nodes: Unremarkable. No enlarged lymph nodes. Bones/joints: Unremarkable. No acute fracture. Soft tissues: Unremarkable. IMPRESSION: No acute abnormality.
--- NOTE | 2023-09-26 14:46 | CT_ITS ---
PROCEDURE INFORMATION: Exam: CT Thoracic Spine Without Contrast Exam date and time: 09/26/2023 4:03 PM Age: 77 years old Clinical indication: Injury or trauma; Fall; Blunt trauma (contusions or hematomas); Patient HX: PT fell off porch at 10pm last night and was found today. Laceration to head, right sided abrasions to face, facial swelling. ; Additional info: Trauma, critical injury suspected TECHNIQUE: Imaging protocol: Computed tomography of the thoracic spine without contrast. Radiation optimization: All CT scans at this facility use at least one of these dose optimization techniques: automated exposure control; mA and/or kV adjustment per patient size (includes targeted exams where dose is matched to clinical indication); or iterative reconstruction. COMPARISON: CT CERVICAL SPINE WO CON 09/26/2023 4:01 PM FINDINGS: Bones/joints: No acute fracture. Normal alignment. No significant disc bulge or herniation. No severe spinal canal stenosis. No significant neural foraminal narrowing. Soft tissues: Unremarkable. IMPRESSION: Unremarkable CT Spine.
--- NOTE | 2023-09-26 14:46 | CT_ITS ---
PROCEDURE INFORMATION: Exam: CT Cervical Spine Without Contrast Exam date and time: 09/26/2023 4:01 PM Age: 77 years old Clinical indication: Injury or trauma; Fall; Blunt trauma; Patient HX: PT fell off porch at 10pm last night and was found today. Laceration to head, right sided abrasions to face, facial swelling. ; Additional info: Trauma, critical injury suspected TECHNIQUE: Imaging protocol: Computed tomography of the cervical spine without contrast. Radiation optimization: All CT scans at this facility use at least one of these dose optimization techniques: automated exposure control; mA and/or kV adjustment per patient size (includes targeted exams where dose is matched to clinical indication); or iterative reconstruction. COMPARISON: CT CERVICAL SPINE WO CON 06/25/2020 8:41 PM FINDINGS: Bones: Grade 1 anterolisthesis of C4 on C5, C5 on C6 and C6 on C7. Vertebral body heights are preserved. Moderate degenerative change about the dens. Mild prevertebral osteophytosis. Advanced bilateral facet joint degenerative change. No acute cervical spine fracture. No definite high-grade central canal stenosis within limitations of technique. Multilevel cervical foraminal stenoses. Lungs: Lung apices are normal. Pleural spaces: No visible pneumothorax. Vasculature: Vascular calcification. Soft tissues: Unremarkable. IMPRESSION: No acute osseous abnormality.
--- NOTE | 2023-09-26 14:46 | CT_ITS ---
PROCEDURE INFORMATION: Exam: CTA Head With Contrast, Arteriography Exam date and time: 09/26/2023 4:16 PM Age: 77 years old Clinical indication: Injury or trauma; Fall; Blunt trauma; Head; Additional info: Trauma, critical injury suspected TECHNIQUE: Imaging protocol: Computed tomographic angiography of the head with contrast. Exam focused on the arteries. 3D rendering (Not supervised by radiologist): MIP and/or 3D reconstructed images were created by the technologist. Radiation optimization: All CT scans at this facility use at least one of these dose optimization techniques: automated exposure control; mA and/or kV adjustment per patient size (includes targeted exams where dose is matched to clinical indication); or iterative reconstruction. Contrast material: ISO 370; Contrast volume: 100 ml; Contrast route: INTRAVENOUS (IV); COMPARISON: CT ANGIO HEAD 12/31/2022 3:31 PM FINDINGS: ANTERIOR CIRCULATION: Right internal carotid artery: Intracranial segment is patent with no significant stenosis. No aneurysm. Right middle cerebral artery: No occlusion or significant stenosis. No aneurysm. Right anterior cerebral artery: No occlusion or significant stenosis. No aneurysm. Left internal carotid artery: Calcification involving the left carotid siphon without hemodynamically significant stenosis. Left middle cerebral artery: No occlusion or significant stenosis. No aneurysm. Left anterior cerebral artery: No occlusion or significant stenosis. No aneurysm. 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 Calcification involving the right vertebral artery without hemodynamically significant stenosis. Left vertebral artery: Left vertebral artery is dominant. Minimal calcification involving the left vertebral artery without significant stenosis. Basilar artery: Congenitally small caliber basilar artery. Right posterior cerebral artery: origin of the right posterior cerebral artery. Left posterior cerebral artery: origin of the left posterior cerebral artery. Severe left BLOCK FEEDER P2 stenosis. IMPRESSION: No significant vascular pathology.
--- NOTE | 2023-09-26 14:47 | CT_ITS ---
PROCEDURE INFORMATION: Exam: CT Maxillofacial Without Contrast Exam date and time: 09/26/2023 4:05 PM Age: 77 years old Clinical indication: Injury or trauma; Fall; Blunt trauma (contusions or hematomas); Eyelid; Upper right; Patient HX: PT fell off porch at 10pm last night and was found today. Laceration to head, right sided abrasions to face, facial swelling. ; Additional info: Trauma, critical injury suspected TECHNIQUE: Imaging protocol: Computed tomography of the face without contrast. Radiation optimization: All CT scans at this facility use at least one of these dose optimization techniques: automated exposure control; mA and/or kV adjustment per patient size (includes targeted exams where dose is matched to clinical indication); or iterative reconstruction. COMPARISON: CT ANGIO HEAD 12/31/2022 3:31 PM FINDINGS: Orbital cavities: Orbits are normal. Globes are unremarkable. Paranasal sinuses: Mild paranasal sinus disease. Vasculature: Vascular calcification. Bones: Degenerative changes involving the spine. No acute facial bone fracture. No dislocation. No acute facial bone Soft tissues: Right facial soft tissue injury including pre maxillary hematoma measuring 3.5 cm. IMPRESSION: 1. Fracture. 2. Right facial soft tissue injury as above.
--- NOTE | 2023-09-26 14:57 | ECG_ITS ---
APPROVED REPORT Exam: Resting ECG HR:126 bpm ECG Measurements Heart Rate 126 AXES MT 175 P 86 QRSd 79 QRS 14 QT 322 T 59 QTc 397 Conclusion SINUS TACHYCARDIA POSSIBLE RIGHT VENTRICULAR CONDUCTION DELAY [RSR (QR) IN V1/V2] ABNORMAL RHYTHM ECG Electronically signed by : LILLIE CAMACHO, 09/26/2023 15:30:50
--- NOTE | 2023-09-26 15:04 | [facility]H.EDGENADL ---
Discharge Plan Disposition Chief Complaint: Fall Prescriptions Prescriptions: No Action ipratropium-albuterol 0.5 mg-3 mg(2.5 mg base)/3 mL solution for nebulization 3 ml inhalation Q6HP PRN (Reason: shortness of breath) potassium chloride 10 mEq tablet extended release 10 meq PO DAILY ergocalciferol (vitamin D2) 1,250 mcg (50,000 unit) capsule 50,000 unit PO WEEKLY bisoprolol fumarate 5 mg tablet 5 mg PO DAILY ibuprofen 200 mg tablet 400 mg PO BID febuxostat 40 mg tablet 40 mg PO DAILY 90 Days Qty: 90 1RF hydrochlorothiazide 12.5 mg tablet 12.5 mg PO DAILY 90 Days Qty: 90 0RF tramadol 50 mg tablet 50 mg PO Q6H PRN (Reason: pain) Qty: 30 0RF furosemide 20 mg tablet 20 mg PO TID 90 Days Qty: 270 0RF Referrals Follow up/Referrals: Cuca Means APRN [Primary Care Provider] - See instructions Discharge ED Provider: Vinita Mejia General Adult HPI <Vinita Mejia DO - Last Filed: 09/26/23 15:10> General Chief complaint: Fall Stated complaint: fall Time Seen by Provider: 09/26/23 14:50 History of Present Illness HPI narrative: This patient is a 77-year-old female with a history of hypertension, hyperlipidemia, and CKD presenting to the emergency department for evaluation with concern for fall. Patient reports that last night she went outside around 10:30 PM and fell down her 3 back steps exiting her house. She landed on her face and was unable to get up after that. She lost consciousness, but she is not sure how long she was out. She was down until approximately 1400 today when finally bystander called EMS. EMS noted that the patient has significant facial swelling and bruising to the right face, visual loss in the right eye, and the patient is also been complaining of back pain. They noted that she started vomiting en route. Patient complains of mostly low back pain at this time. She also does state that her vision in her right eye is affected, but she thinks is secondary to significant facial swelling. She does not take any anticoagulants or aspirin. She states that she was well prior to the fall. She denies other concerns, such as chest pain, abdominal pain, numbness, tingling, or other issues. Related Data Home Medications Medication Instructions Recorded Confirmed ipratropium 0.5 mg-albuterol 3 mg 3 ml inhalation Q6HP PRN shortness 12/31/22 07/08/23 (2.5 mg base)/3 mL nebulization of breath soln ergocalciferol (vitamin D2) 1,250 50,000 unit PO WEEKLY 04/15/23 07/08/23 mcg (50,000 unit) capsule potassium chloride 10 mEq 10 meq PO DAILY 04/15/23 07/08/23 tablet,extended release bisoprolol fumarate 5 mg tablet 5 mg PO DAILY 07/08/23 07/08/23 ibuprofen 200 mg tablet 400 mg PO BID 07/08/23 07/08/23 Previous Rx's Medication Instructions Recorded febuxostat 40 mg tablet 40 mg PO DAILY Gout 90 days #90 06/19/23 tabs hydrochlorothiazide 12.5 mg tablet 12.5 mg PO DAILY 90 days #90 tabs 06/19/23 tramadol 50 mg tablet 50 mg PO Q6H PRN pain #30 tabs 08/17/23 furosemide 20 mg tablet 20 mg PO TID 90 days #270 tabs 08/25/23 Allergies Allergy/AdvReac Type Severity Reaction Status Date / Time Penicillins Allergy Intermediate Rash Verified 07/08/23 15:01 tetanus toxoid, adsorbed Allergy Unknown SWELLS Verified 07/08/23 15:01 [TETANUS TOXOID, ADSORBED] THROAT [facility] <Vinita Mejia DO - Last Filed: 09/26/23 15:10> [facility] Disclaimer: The information contained in this section may have been updated after the patient was seen, as this information can be updated by other users. Medical History Vitamin D deficiency Lumbago HTN (hypertension), benign HLD (hyperlipidemia) History of osteoarthritis Gout attack Surgical History H/O total hysterectomy Family History Other Heart attack Social History Smoking Status: Never smoker second hand exposure: No alcohol intake: current alcohol intake frequency: holidays/special occasions only substance use type: denies use current occupational status: retired Travel in the last 8 weeks: None household members: spouse housing: house current occupational exposures/hazards: No caffeine: Yes <Vinita Mejia DO - Last Filed: 09/26/23 15:10> ROS Obtained: Yes All systems reviewed & no additional complaints except as documented Physical Exam <Vinita Mejia DO - Last Filed: 09/26/23 15:10> General General appearance: alert and obese Comment: Ill-appearing Head Head exam: other (Right-sided facial swelling and hematoma.) Eye Eye exam: Present PERRL, EOMI, periorbital swelling and other (Subconjunctival hemorrhage of the right eye with significant right periorbital swelling and hematoma) ENT ENT exam: Present normal exam, normal oropharynx, mucous membranes dry and normal external ear exam Neck Neck exam: Present trachea midline and other (C-collar in place); Absent tenderness Chest Chest inspection: Present normal inspection and symmetric chest wall rise; Absent tenderness Respiratory Respiratory exam: Present normal lung sounds bilaterally; Absent respiratory distress, wheezes, stridor or accessory muscle use Cardiovascular Cardiovascular exam: Present normal rhythm and tachycardia Abdominal Exam Abdominal exam: Present soft; Absent distention, tenderness, guarding or rebound Extremities Exam Extremities exam: Present full ROM and normal capillary refill; Absent tenderness or edema Back Exam Back exam: Present tenderness (Lumbar spine) and vertebral tenderness (Lumbar spine) Neurological Exam Neurological exam: Present alert, oriented X3 and CN II-XII intact; Absent motor sensory deficit Psychiatric Psychiatric exam: Present normal affect and normal mood Skin Skin exam: Present warm and diaphoresis Medical Decision Making <Vinita Mejia DO - Last Filed: 09/26/23 15:10> Medical Records Medical records reviewed: Yes I reviewed the patient's medical records. Rishabh Inquiry Pt receiving controlled substance: No Vital Signs: 09/26/23 14:50 09/26/23 14:56 09/26/23 15:00 Temperature Temperature Source Pulse Rate 124 H 123 H 124 H Pulse Rate [Left Radial] Respiratory Rate Blood Pressure 216/112 H 209/100 H 203/94 H Blood Pressure [Right Arm] Blood Pressure Mean 134 136 130 Blood Pressure Mean [Right Arm] 02 Sat by Pulse Oximetry 98 98 100 Oxygen Delivery Method Room Air Room Air Room Air 09/26/23 15:07 09/26/23 15:30 09/26/23 17:31 Temperature 98.9 F Temperature Source Oral Pulse Rate 124 H 125 H Pulse Rate [Left Radial] 123 H Respiratory Rate 20 Blood Pressure 196/79 H 161/71 H Blood Pressure [Right Arm] 209/100 H Blood Pressure Mean Blood Pressure Mean [Right Arm] 136 02 Sat by Pulse Oximetry 99 99 99 Oxygen Delivery Method Room Air Room Air Room Air Lab Data Lab results reviewed: Yes I reviewed the patient's lab results. Lab Results 09/26/23 15:00: WBC 24.4 H*, RBC 4.81, Hgb 14.4, Hct 43.6, MCV 90.6, MCH 30.0, MCHC 33.0, RDW 14.6, Plt Count 373, MPV 8.6, Neut % (Auto) 87.0 H, Lymph % (Auto) 7.8 L, Weld % (Auto) 3.9, Eos % (Auto) 1.0, Baso % (Auto) 0.3, Neut # (Auto) 21.2 H, Lymph # (Auto) 1.9, Weld # (Auto) 1.0, Eos # (Auto) 0.2, Baso # (Auto) 0.1, Total Counted 100, Neutrophils % (Manual) 91 H, Lymphocytes % (Manual) 7 L, Monocytes % (Manual) 1 L, Basophils % (Manual) 1.0, Platelet Estimate Normal, RBC Morphology Normal, PT 9.8 L, INR 0.86 L, APTT 19.9 L, Sodium 140, Potassium 3.9, Chloride 102, Carbon Dioxide 27, Anion Gap 14.9, BUN 30 H, Creatinine 1.00, Estimated Creat Clear 60, Estimated GFR 53 L, Est GFR ( Amer) 65, Glucose 149 H, Calcium 9.7, Total Bilirubin 0.8, AST 60 H, ALT 45, Alkaline Phosphatase 146 H, Total Creatine Kinase 830 H*, Troponin I 0.06 H, Total Protein 8.5 H, Albumin 4.6, Globulin 3.9 H, Albumin/Globulin Ratio 1.2, Lipase 129 09/26/23 15:06: VBG pH 7.41, VBG pCO2 39.5, VBG pO2 58.6 H, VBG HCO3 24.3, VBG Total CO2 25.5, VBG O2 Saturation 91.1 H, VBG Base Excess -0.5, VBG Lactic Acid 4.2 H 09/26/23 15:00 09/26/23 15:00 Orders (Tests/Meds): ED MEDICATIONS Generic Name Dose Route Start Last Admin Trade Name Pascale PRN Reason Stop Dose Admin Sodium Chloride 10 ml 09/26/23 16:18 09/26/23 16:19 Sodium Chloride 0.9% 10ml Syr (Rad Only) IV 10/26/23 16:17 10 ml NEEDED PRN Administration Maintain IV Site Discontinued Medications Generic Name Dose Route Start Last Admin Trade Name Pascale PRN Reason Stop Dose Admin Acetaminophen 1,000 mg 09/26/23 14:49 09/26/23 15:15 Acetaminophen 1,000mg/100ml Vial IV 09/26/23 14:50 1,000 mg ONCE ONE Administration Lactated Ringer's 1,000 mls @ 999 mls/hr 09/26/23 14:46 09/26/23 15:15 Lactated Ringer's 1000 Ml Bag IV 09/26/23 15:46 999 mls/hr .Q1H1M ONE Administration Lactated Ringer's 1,000 mls @ 999 mls/hr 09/26/23 15:57 09/26/23 17:34 Lactated Ringer's 1000 Ml Bag IV 09/26/23 16:57 999 mls/hr .Q1H1M ONE Administration Iopamidol 200 ml 09/26/23 16:18 09/26/23 16:19 Iopamidol-370 (76%);100ml Bottle IV 09/26/23 16:19 200 ml ONCE ONE Administration Morphine Sulfate 2 mg 09/26/23 14:49 09/26/23 15:18 Morphine 4mg/Ml Syringe IV 09/26/23 14:50 2 mg ONCE ONE Administration Morphine Sulfate 4 mg 09/26/23 15:57 09/26/23 16:32 Morphine 4mg/Ml Syringe IV 09/26/23 15:58 4 mg ONCE ONE Administration Ondansetron HCl 4 mg 09/26/23 14:49 09/26/23 15:16 Ondansetron 4mg/2ml Vial IV 09/26/23 14:50 4 mg ONCE ONE Administration Sodium Chloride 100 ml 09/26/23 16:18 07/20/24 16:19 0.9 % Sodium Chloride 50 Ml Vial IV 09/26/23 16:19 100 ml ONCE ONE Administration ORDERS Category Date Time Status CT angio abdomen pelvis Stat Cat Scan 09/26/23 14:[address] angio chest - dissection Stat Cat Scan 09/26/23 14:[address] angio head Stat Cat Scan 09/26/23 14:[address] angio neck Stat Cat Scan 09/26/23 14:[address] bony pelvis Stat Cat Scan 09/26/23 14:[address] cervical spine wo con Stat Cat Scan 09/26/23 14:[address] facial bones wo con Stat Cat Scan 09/26/23 14:[address] head/brain wo con Stat Cat Scan 09/26/23 14:[address] lumbar spine wo con Stat Cat Scan 09/26/23 14:[address] thoracic spine wo con Stat Cat Scan 09/26/23 14:46 Completed Humerus XR right [XR humerus RT] Stat Exams 09/26/23 16:10 Completed Shoulder XR right miminum 2 views [XR shoulder RT min Exams 09/26/23 16:10 Completed 2V] Stat CK [Creatine Kinase] Stat Lab 09/26/23 15:00 Completed Complete Blood Count Auto Diff Stat Lab 09/26/23 15:00 Completed Comprehensive Metabolic Panel Stat Lab 09/26/23 15:00 Completed Lipase Stat Lab 09/26/23 15:00 Completed PT INR [Prothrombin Time INR] Stat Lab 09/26/23 15:00 Completed PTT [Activated Partial Thrombo Time] Stat Lab 09/26/23 15:00 Completed Troponin I Q3H Lab 09/26/23 18:00 Ordered Troponin I Q3H Lab 09/26/23 21:00 Ordered Troponin I Stat Lab 09/26/23 15:00 Completed VBG [Venous Blood Gas] Stat RT 09/26/23 15:06 Completed Medical Decision Narrative: In summary, this patient is a 77-year-old female presenting to the Emergency Department for evaluation of fall down steps last night and was down on the ground outside in the heat until today over 12 hours later. Differential diagnoses considered include but are not limited to head trauma, chest trauma, abdominal trauma, polytrauma, rhabdomyolysis, heat exhaustion. Ruling out the most morbid conditions drove assessment. It should be noted patient's history includes hypertension, hyperlipidemia, and CKD which may or may not be at goal therapy. This complicates all aspects of care by increasing patient's risk for morbidity. On exam, the patient is ill-appearing and is tachycardic to the 120s. She is also profoundly hypertensive. She has no focal neurologic deficits aside from some blurred vision in the right eye but does have significant right face swelling and lumbar tenderness on exam. She has good sensation distally in her lower extremities, but it should be noted that she did lose bladder and bowel function on herself at some point during this time. It also should be noted that her clothes are soaked, but she herself is quite dry, concerning for potential heat related injury. Workup included lab evaluation including CBC, CMP, PT, PTT, lipase, troponin, lactic acid, VBG, CK as well as full trauma scans and EKG. She was given a bolus of IV fluids as well as 2 mg of IV morphine, IV acetaminophen, and IV Zofran. <Selvin Alfaro MD - Last Filed: 09/26/23 18:01> Vital Signs: 09/26/23 14:50 09/26/23 14:56 09/26/23 15:00 Temperature Temperature Source Pulse Rate 124 H 123 H 124 H Pulse Rate [Left Radial] Respiratory Rate Blood Pressure 216/112 H 209/100 H 203/94 H Blood Pressure [Right Arm] Blood Pressure Mean 134 136 130 Blood Pressure Mean [Right Arm] 02 Sat by Pulse Oximetry 98 98 100 Oxygen Delivery Method Room Air Room Air Room Air 09/26/23 15:07 09/26/23 15:30 09/26/23 17:31 Temperature 98.9 F Temperature Source Oral Pulse Rate 124 H 125 H Pulse Rate [Left Radial] 123 H Respiratory Rate 20 Blood Pressure 196/79 H 161/71 H Blood Pressure [Right Arm] 209/100 H Blood Pressure Mean Blood Pressure Mean [Right Arm] 136 02 Sat by Pulse Oximetry 99 99 99 Oxygen Delivery Method Room Air Room Air Room Air Lab Data Lab Results 09/26/23 15:00: WBC 24.4 H*, RBC 4.81, Hgb 14.4, Hct 43.6, MCV 90.6, MCH 30.0, MCHC 33.0, RDW 14.6, Plt Count 373, MPV 8.6, Neut % (Auto) 87.0 H, Lymph % (Auto) 7.8 L, Weld % (Auto) 3.9, Eos % (Auto) 1.0, Baso % (Auto) 0.3, Neut # (Auto) 21.2 H, Lymph # (Auto) 1.9, Weld # (Auto) 1.0, Eos # (Auto) 0.2, Baso # (Auto) 0.1, Total Counted 100, Neutrophils % (Manual) 91 H, Lymphocytes % (Manual) 7 L, Monocytes % (Manual) 1 L, Basophils % (Manual) 1.0, Platelet Estimate Normal, RBC Morphology Normal, PT 9.8 L, INR 0.86 L, APTT 19.9 L, Sodium 140, Potassium 3.9, Chloride 102, Carbon Dioxide 27, Anion Gap 14.9, BUN 30 H, Creatinine 1.00, Estimated Creat Clear 60, Estimated GFR 53 L, Est GFR ( Amer) 65, Glucose 149 H, Calcium 9.7, Total Bilirubin 0.8, AST 60 H, ALT 45, Alkaline Phosphatase 146 H, Total Creatine Kinase 830 H*, Troponin I 0.06 H, Total Protein 8.5 H, Albumin 4.6, Globulin 3.9 H, Albumin/Globulin Ratio 1.2, Lipase 129 09/26/23 15:06: VBG pH 7.41, VBG pCO2 39.5, VBG pO2 58.6 H, VBG HCO3 24.3, VBG Total CO2 25.5, VBG O2 Saturation 91.1 H, VBG Base Excess -0.5, VBG Lactic Acid 4.2 H Orders (Tests/Meds): ED MEDICATIONS Generic Name Dose Route Start Last Admin Trade Name Freq PRN Reason Stop Dose Admin Sodium Chloride 10 ml 09/26/23 16:18 09/26/23 16:19 Sodium Chloride 0.9% 10ml Syr (Rad Only) IV 10/26/23 16:17 10 ml NEEDED PRN Administration Maintain IV Site Discontinued Medications Generic Name Dose Route Start Last Admin Trade Name Freq PRN Reason Stop Dose Admin Acetaminophen 1,000 mg 09/26/23 14:49 09/26/23 15:15 Acetaminophen 1,000mg/100ml Vial IV 09/26/23 14:50 1,000 mg ONCE ONE Administration Lactated Ringer's 1,000 mls @ 999 mls/hr 09/26/23 14:46 09/26/23 15:15 Lactated Ringer's 1000 Ml Bag IV 09/26/23 15:46 999 mls/hr .Q1H1M ONE Administration Lactated Ringer's 1,000 mls @ 999 mls/hr 09/26/23 15:57 09/26/23 17:34 Lactated Ringer's 1000 Ml Bag IV 09/26/23 16:57 999 mls/hr .Q1H1M ONE Administration Iopamidol 200 ml 09/26/23 16:18 09/26/23 16:19 Iopamidol-370 (76%);100ml Bottle IV 09/26/23 16:19 200 ml ONCE ONE Administration Morphine Sulfate 2 mg 09/26/23 14:49 09/26/23 15:18 Morphine 4mg/Ml Syringe IV 09/26/23 14:50 2 mg ONCE ONE Administration Morphine Sulfate 4 mg 09/26/23 15:57 09/26/23 16:32 Morphine 4mg/Ml Syringe IV 09/26/23 15:58 4 mg ONCE ONE Administration Ondansetron HCl 4 mg 09/26/23 14:49 09/26/23 15:16 Ondansetron 4mg/2ml Vial IV 09/26/23 14:50 4 mg ONCE ONE Administration Sodium Chloride 100 ml 09/26/23 16:18 09/26/23 16:19 0.9 % Sodium Chloride 50 Ml Vial IV 09/26/23 16:19 100 ml ONCE ONE Administration ORDERS Category Date Time Status CT angio abdomen pelvis Stat Cat Scan 09/26/23 14:[address] angio chest - dissection Stat Cat Scan 09/26/23 14:[address] angio head Stat Cat Scan 09/26/23 14:[address] angio neck Stat Cat Scan 09/26/23 14:[address] bony pelvis Stat Cat Scan 09/26/23 14:[address] cervical spine wo con Stat Cat Scan 09/26/23 14:[address] facial bones wo con Stat Cat Scan 09/26/23 14:[address] head/brain wo con Stat Cat Scan 09/26/23 14:[address] lumbar spine wo con Stat Cat Scan 09/26/23 14:[address] thoracic spine wo con Stat Cat Scan 09/26/23 14:46 Completed Humerus XR right [XR humerus RT] Stat Exams 09/26/23 16:10 Completed Shoulder XR right miminum 2 views [XR shoulder RT min Exams 09/26/23 16:10 Completed 2V] Stat CK [Creatine Kinase] Stat Lab 09/26/23 15:00 Completed Complete Blood Count Auto Diff Stat Lab 09/26/23 15:00 Completed Comprehensive Metabolic Panel Stat Lab 09/26/23 15:00 Completed Lipase Stat Lab 09/26/23 15:00 Completed PT INR [Prothrombin Time INR] Stat Lab 09/26/23 15:00 Completed PTT [Activated Partial Thrombo Time] Stat Lab 09/26/23 15:00 Completed Troponin I Q3H Lab 09/26/23 18:00 Ordered Troponin I Q3H Lab 09/26/23 21:00 Ordered Troponin I Stat Lab 09/26/23 15:00 Completed VBG [Venous Blood Gas] Stat RT 09/26/23 15:06 Completed ECG Data Tracing #1: Independently interpreted by me rate is 126, rhythm is regular, axis is borderline leftward deviated, sinus tachycardia, no ST elevation in anatomical contiguous leads, QTc 397. Medical Decision Narrative: In summary, this patient is a 77-year-old female presenting to the Emergency Department for evaluation of fall down steps last night and was down on the ground outside in the heat until today over 12 hours later. Differential diagnoses considered include but are not limited to head trauma, chest trauma, abdominal trauma, polytrauma, rhabdomyolysis, heat exhaustion. Ruling out the most morbid conditions drove assessment. It should be noted patient's history includes hypertension, hyperlipidemia, and CKD which may or may not be at goal therapy. This complicates all aspects of care by increasing patient's risk for morbidity. On exam, the patient is ill-appearing and is tachycardic to the 120s. She is also profoundly hypertensive. She has no focal neurologic deficits aside from some blurred vision in the right eye but does have significant right face swelling and lumbar tenderness on exam. She has good sensation distally in her lower extremities, but it should be noted that she did lose bladder and bowel function on herself at some point during this time. It also should be noted that her clothes are soaked, but she herself is quite dry, concerning for potential heat related injury. Workup included lab evaluation including CBC, CMP, PT, PTT, lipase, troponin, lactic acid, VBG, CK as well as full trauma scans and EKG. She was given a bolus of IV fluids as well as 2 mg of IV morphine, IV acetaminophen, and IV Zofran. Selvin Alfaro: Upon assumption of care patient was hemodynamically stable. Initial workup reviewed by me, significant leukocytosis which I suspect is leukocytosis of trauma with a stress response, no significant acidosis however there is elevated lactate, no LAURITA or critical electrolyte abnormality, there is elevated CK that meets criteria for rhabdomyolysis which is being volume resuscitated, initial troponin 0.06 without changes on EKG likely stress-induced troponin elevation. Trauma survey shows abnormal right ovary of undetermined significance, moderate hydroureteronephrosis which may be compressive from the iliac vessels or occult process, moderate narrowing of the SMA which patient is currently asymptomatic. Facial swelling without evidence of acute fracture. The case was discussed with hospital medicine regarding management patient will be admitted to their service for continued evaluation at this time. Critical Care <Vinita Mejia, DO - Last Filed: 09/26/23 15:10> Critical Care Time Critical Care Time: No
[2023-09-26 15:09] LABS: Basophils # 0.1 K/mm3 (0-0.2); Basophils % 0.3 % (0.1-2.0); Eosinophils # 0.2 K/mm3 (0.0-0.4); Hematocrit 43.6 % (37.0-47.0); Hemoglobin 14.4 g/dL (12.2-16.2); Lymphocytes # 1.9 K/mm3 (0.7-4.5); Lymphocytes % 7.8 % (10-50); Mean Corpuscular Volume 90.6 fl (81-99); Mean Platelet Volume 8.6 fl (7.4-10.4); Monocytes % 3.9 % (1.7-9.3); Neutrophils # 21.2 K/mm3 (1.8-7.8); Platelet Count 373 K/mm3 (142-424); Red Blood Count 4.81 M/mm3 (4.20-5.40); Red Cell Distribution Width 14.6 % (11.5-17.5); White Blood Count 24.4 K/mm3 (4.8-10.8)
[2023-09-26 15:11] LABS: MANUAL DIFFERENTIAL MANUAL DIFFERENTIAL (MANUAL DIFF)
[2023-09-26 15:14] LABS: Chloride 102 mmol/L (98-107); Potassium 3.9 mmoL/L (3.5-5.1); Sodium 140 mmol/L (136-145)
[2023-09-26] MEDS: LACTATED RINGERS 1000ML 1,000 ML 999 ML IV ×2 (15:15→17:34)
[2023-09-26] MEDS: ACETAMINOPHEN 1,000MG/100ML VIAL 1000 MG IV (15:15)
[2023-09-26 15:16] LABS: Alanine Aminotransferase 45 U/L (12-78); Aspartate Amino Transferase 60 U/L (14-36); Blood Urea Nitrogen 30 mg/dl (7-17); Creatinine Clearance Estimated 60 mL/min (50-200); Estimated Glomerular Filt Rate 53 ml/min (>60); GFR (African American) 65 ML/MIN (>60)
[2023-09-26 15:16] LABS: VBG Base Excess -0.5 mmol/L (-2.4-2.3); VBG HCO3 24.3 mmol/L (23-30); VBG Oxygen Saturation 91.1 % (50-70); VBG PCO2 39.5 mmol/L (35-51); VBG PH 7.41 mmol/L (7.31-7.41); VBG PO2 58.6 mmol/L (28-40); VBG Total CO2 25.5 mmol/L (23-27)
[2023-09-26] MEDS: ONDANSETRON 4MG/2ML VIAL 4 MG IV (15:16)
[2023-09-26 15:17] LABS: Albumin Level 4.6 g/dl (3.5-5.0); Albumin/Globulin Ratio 1.2 (1.1-1.8); Alkaline Phosphatase 146 U/L (38-126); Anion Gap 14.9 mEq/L (5-15); Bilirubin,Total 0.8 mg/dl (0.2-1.3); Calcium 9.7 mg/dl (8.4-10.2); Carbon Dioxide 27 mmol/L (22.0-30.0); Creatine Kinase 830 U/L (30-135); Globulin 3.9 g/dL (1.3-3.2); Glucose 149 mg/dl (74-100); Lipase 129 U/L (23-300); Total Protein,Serum 8.5 g/dl (6.3-8.2)
[2023-09-26 15:17] LABS: Lactate Venous 4.2 mmol/L (0.4-2.0)
[2023-09-26] MEDS: MORPHINE 4MG/ML SYRINGE 2 MG IV (15:18)
[2023-09-26 15:29] LABS: Troponin I 0.06 ng/ml (0.00-0.034)
[2023-09-26 15:43] LABS: Activated Partial Thrombo Time 19.9 seconds (22.8-30.6); INR 0.86 (0.9-1.1); Prothrombin Time 9.8 seconds (10.1-12.5)
[2023-09-26 15:46] LABS: Lymphocytes % 7 % (10-50); Monocytes % 1 % (2-9); Neutrophils % 91 % (42-76); Total Cells Counted 100
[2023-09-26 15:47] LABS: Platelet Estimate Normal; RBC Morphology Normal
--- NOTE | 2023-09-26 16:10 | XR_ITS ---
PROCEDURE INFORMATION: Exam: XR Right Shoulder Exam date and time: 09/26/2023 4:21 PM Age: 77 years old Clinical indication: Injury or trauma; Fall; Blunt trauma (contusions or hematomas); Shoulder; Right TECHNIQUE: Imaging protocol: Radiologic exam of the right shoulder. Views: 2 or more views. COMPARISON: CR XR HUMERUS RT 09/26/2023 4:21 PM FINDINGS: Bones/joints: Normal. No acute fracture identified. Soft tissues: Normal. IMPRESSION: No acute findings.
--- NOTE | 2023-09-26 16:10 | XR_ITS ---
PROCEDURE INFORMATION: Exam: XR Right Humerus Exam date and time: 09/26/2023 4:21 PM Age: 77 years old Clinical indication: Injury or trauma; Fall; Blunt trauma (contusions or hematomas); Arm, upper; Right TECHNIQUE: Imaging protocol: Radiologic exam of the right humerus. Views: 2 or more views. COMPARISON: CR XR SHOULDER RT MIN 2V 09/26/2023 4:21 PM FINDINGS: Bones/joints: Normal. No acute fracture identified. Soft tissues: Normal. IMPRESSION: No acute findings.
--- NOTE | 2023-09-26 16:14 | PC.NURSE ---
pt is at ct
[2023-09-26] MEDS: SODIUM CHLORIDE 0.9% 10ML SYR (RAD ONLY) 10 ML IV (16:19)
[2023-09-26] MEDS: IOPAMIDOL-370 (76%);100ML BOTTLE 200 ML IV (16:19)
[2023-09-26] MEDS: 0.9 % SODIUM CHLORIDE 50 ML VIAL 100 ML IV (16:19)
[2023-09-26] MEDS: MORPHINE 4MG/ML SYRINGE 4 MG IV (16:32)
[2023-09-26] MEDS: OXYCODONE 5MG IMMEDIATE RELEASE TABLET 5 MG PO (18:35)
[2023-09-26 19:16] LABS: Troponin I 0.09 ng/ml (0.00-0.034)
[2023-09-26 19:17] LABS: Reflex Lactic Add Lactic Reflex
--- NOTE | 2023-09-26 19:30 | PC.NURSE ---
Large hematoma to Right upper arm with appromiate 6 cm skin tear. Spoke with MD area assessed and new orders for steri strips.
--- NOTE | 2023-09-26 19:31 | PC.NURSE ---
report called to Oksana RN on 2nd floor.
--- NOTE | 2023-09-26 19:44 | PC.NURSE ---
Patient arrived to floor via wheelchair from ED at 19:40.
--- NOTE | 2023-09-26 19:45 | PC.NURSE ---
Area to right upper arm, cleansed with hibclens and saline. Edges proximated, mastisol and steri strips applied to approximate 6 cm skin tear. Large hematoma present. Area swollen and discolored. Instructed patient to monitor for s/s of infection. Patient verbalize understanding. Patient Nurse Oksana at bedside.
--- NOTE | 2023-09-26 20:10 | P.HP_ITS ---
History of Present Illness *Admission Date: 09/26/23 *Reason for visit:: Fall, rhabdomyolysis *History of present illness: Neyda Ridley is a 77-year-old female past medical history significant for HTN, HLD, CKD who presents emergency room today after suffering a mechanical fall down 3 steps. Ms. Ridley states that she was not dizzy or lightheaded, simply tripped over her steps and fell down approximately 3 steps onto the brick. Did not strike the right side of her face. Did have LOC, unable to tell me how long she was unconscious for. She was unable to get up and unfortunately laid outside most of the night and into this morning. Family tried calling her and when they were unable to get a hold of her, found her down in her yard. Denies any neck pain, is having some mild back pain, rated at a 3/10. Denies any numbness or tingling in any of her extremities. No saddle paresthesias noted. No focal neurodeficits noted. Does not take any blood thinners, not on aspirin. No issues prior to the fall. Denies any cough, fever, chest pain, shortness of breath, abdominal pain, bowel bladder dysfunction. No recent weight gain or weight loss, no swelling in her legs or feet. Patient does live by herself, family is supportive and checks on her frequently. Denies tobacco use, alcohol use, illicit drug use. Workup in the ER showed elevated white count of 24.4, BUN slightly elevated at 30, troponin elevated at 0.06, repeat troponin was 0.09. CK elevated at 830, AST slightly bumped at 60. Trauma scan was negative for any fractures. Patient received a 2 L IV fluid bolus in the ER as well as some pain medications. She will be admitted to the hospitalist service for rhabdomyolysis. [facility] Disclaimer: The information contained in this section may have been updated after the patient was seen, as this information can be updated by other users. Medical History Vitamin D deficiency Lumbago HTN (hypertension), benign HLD (hyperlipidemia) History of osteoarthritis Gout attack Surgical History H/O total hysterectomy Family History Other Heart attack Social History (Updated 09/26/23 @ 20:09 by Shanti Watkins RN) Smoking Status: Never smoker second hand exposure: No alcohol intake: current alcohol intake frequency: holidays/special occasions only substance use type: denies use current occupational status: retired Travel in the last 8 weeks: None household members: spouse housing: house current occupational exposures/hazards: No caffeine: Yes Review of Systems Review of Systems Review of systems:: pertinent systems reviewed and negative unless documented below *Musculoskeletal Musculoskeletal: Reports back pain Meds Home Medications and Allergies Home Medications Medication Instructions Recorded Confirmed Type potassium chloride 10 mEq 10 meq PO BID 04/15/23 09/27/23 History tablet,extended release bisoprolol fumarate 5 mg tablet 5 mg PO DAILY 07/08/23 09/26/23 History furosemide 20 mg tablet 20 mg PO TID 90 days #270 tabs 08/25/23 09/26/23 Rx hydrochlorothiazide 12.5 mg tablet 12.5 mg PO DAILY 09/26/23 09/26/23 History New Prescriptions to Start Prescriptions: Allergies Allergy/AdvReac Type Severity Reaction Status Date / Time Penicillins Allergy Intermediate Rash Verified 07/08/23 15:01 tetanus toxoid, adsorbed Allergy Unknown SWELLS Verified 07/08/23 15:01 [TETANUS TOXOID, ADSORBED] THROAT Exam Data for Last 24 hours Vital signs and Labs for Last 24 Hours: Temp Pulse Resp BP Pulse Ox O2 Del Method 98.6 F 131 H 16 122/81 93 L Room Air 09/26/23 20:00 09/26/23 20:00 09/26/23 20:00 09/26/23 20:00 09/26/23 20:00 09/26/23 20:00 Laboratory Results - last 24 hr 09/26/23 15:00: WBC 24.4 H*, RBC 4.81, Hgb 14.4, Hct 43.6, MCV 90.6, MCH 30.0, MCHC 33.0, RDW 14.6, Plt Count 373, MPV 8.6, Neut % (Auto) 87.0 H, Lymph % (Auto) 7.8 L, [place] % (Auto) 3.9, Eos % (Auto) 1.0, Baso % (Auto) 0.3, Neut # (Auto) 21.2 H, Lymph # (Auto) 1.9, [place] # (Auto) 1.0, Eos # (Auto) 0.2, Baso # (Auto) 0.1, Total Counted 100, Neutrophils % (Manual) 91 H, Lymphocytes % (Manual) 7 L, Monocytes % (Manual) 1 L, Basophils % (Manual) 1.0, Platelet Estimate Normal, RBC Morphology Normal, PT 9.8 L, INR 0.86 L, APTT 19.9 L, Sodium 140, Potassium 3.9, Chloride 102, Carbon Dioxide 27, Anion Gap 14.9, BUN 30 H, Creatinine 1.00, Estimated Creat Clear 60, Estimated GFR 53 L, Est GFR ( Amer) 65, Glucose 149 H, Calcium 9.7, Total Bilirubin 0.8, AST 60 H, ALT 45, Alkaline Phosphatase 146 H, Total Creatine Kinase 830 H*, Troponin I 0.06 H, Total Protein 8.5 H, Albumin 4.6, Globulin 3.9 H, Albumin/Globulin Ratio 1.2, Lipase 129 09/26/23 15:06: VBG pH 7.41, VBG pCO2 39.5, VBG pO2 58.6 H, VBG HCO3 24.3, VBG Total CO2 25.5, VBG O2 Saturation 91.1 H, VBG Base Excess -0.5, VBG Lactic Acid 4.2 H 09/26/23 18:49: Troponin I 0.09 H I & O for Last 24 hours: Intake & Output 09/23/23 09/24/23 09/25/23 09/26/23 23:59 23:59 23:59 23:59 Weight 83.915 kg *Routine HEENT Exam Head: Present hematoma and facial swelling Eye: Present EOMI and PERRL ENT: Present mucous membranes moist Comments: Right-sided ecchymosis/large hematoma, periorbital edema noted on the right eye, *Routine Neck Exam Neck: Present supple *Routine Respiratory Exam Respiratory: Present CTA bilaterally *Routine Cardiovascular Exam Cardiovascular: Present RRR, Normal S1 and Normal S2 *Routine Abdominal Exam Abdominal: Present soft and normoactive bowel sounds *Routine Rectal Exam Rectal:: deferred *Routine Genitalia Exam Genitalia:: deferred *Routine Extremities Exam Extremities: Present full ROM, pulses intact and normal capillary refill Routine Back/Spine/Pelvis Exam Back/Spine: Present paraspinal tenderness Comments: Tender to palpation in the lumbar region *Routine Skin Exam Skin: Present intact *Routine Neurological Exam Neurological: Present alert and oriented X3 Assessment and Plan *Assessment and plan (1) Rhabdomyolysis: Status: Acute Category: Medical Code(s): M62.82 - Rhabdomyolysis (2) HLD (hyperlipidemia): Status: Acute Qualifiers: Hyperlipidemia type: unspecified Qualified Code(s): E78.5 - Hyperlipidemia, unspecified Category: Medical Code(s): E78.5 - Hyperlipidemia, unspecified (3) HTN (hypertension), benign: Status: Acute Category: Medical Code(s): I10 - Essential (primary) hypertension (4) CKD (chronic kidney disease): Status: Acute Category: Medical Code(s): N18.9 - Chronic kidney disease, unspecified (5) NSTEMI (non-ST elevated myocardial infarction): Status: Acute Category: Medical Code(s): I21.4 - Non-ST elevation (NSTEMI) myocardial infarction Plan Assessment: This is a 77-year-old female being admitted for rhabdomyolysis secondary to a fall. On my exam, patient is sitting up in bed in no acute distress. Reporting some mild back pain, rated 3/10. No other complaints. Plan: Admit to inpatient-[facility] Rhabdomyolysis Mechanical fall -CK elevated at 830, received 2 L IV fluid bolus in the ER, will continue maintenance IV fluids at 100 cc an hour for 1 bag -Repeat total CK to ensure it is appropriately trending down -Pain management as needed -PT OT NSTEMI -No EKG changes, no chest pain noted -Likely from demand due to rhabdo and laying outside on the ground for over 12 hours -Will trend troponin to peak -ECG as needed Leukocytosis -Likely reactive -Will monitor white count CKD stage 3a -Creatinine stable and at baseline -avoid nephrotoxic medications -monitor serum BUN/Creatinine HTN -Continue beta-jairo, will hold diuretics for now until repeat labs show CK appropriately trending down and renal function stable DVT prophylaxis: Heparin CODE STATUS: Full code Surrogate decision maker: Nely [phone] Skin: Low risk Rounded on patient after nurse practitioner. Personally examined and interviewed patient. Agree with exam findings and care plan as documented.
[2023-09-26] MEDS: LACTATED RINGERS 1000ML 1,000 ML 100 ML IV (20:16)
[2023-09-26 20:55] LABS: Lactic Acid Follow Up (RFLX 1) 2.5 mmol/L (0.7-2.1)
[2023-09-26] MEDS: HEPARIN SODIUM 5,000 UNIT/ML VIAL 5000 UNIT SQ (21:54)
[2023-09-26 22:41] LABS: Reflex Lactic (2 hrs) Add Lactic Reflex
[2023-09-26 23:31] LABS: Lactic Acid Follow up (RFLX 2) 2.6 mmol/L (0.7-2.1)
[2023-09-27] VITALS (10 sets, daily range): BP systolic 124–146; BP diastolic 61–78; PULSE 70–125; RESP 16–21; TEMP 36.5–36.9; O2SAT 93–98; BMI 35.2
[2023-09-27] MEDS: LACTATED RINGERS 1000ML 1,000 ML 100 ML IV (05:33)
--- NOTE | 2023-09-27 05:35 | PC.NURSE ---
Addendum entered by Oksana Mcginnis RN 09/27/23 05:55: Home meds locked in drawer. Addendum entered by Oksnaa Mcginnis RN 09/27/23 05:47: Alert and oriented x4. Original Note: Ms Ridley is a new admit this shift due to rhabdomyolysis and a fall at her house. Patient was also noted to have elevated troponins upon admission. Her fall resulted in an abrasion to the right side of her face and an open skin tear on her right anterior forearm. She has orbital swelling, a scrape, and bruising noted on her face. The skin tear on her forearm is currently covered with steri-strips. Patient's lung sounds were clear and her bowel sounds were active in all quadrants upon auscultation. Patient's heart rate has been running very tachycardic this shift. She has gotten up to go to the bathroom with standby assistance. Patient has not had any complaints of pain to her face or arm this shift; she has however complained of mild lower back pain. Patient has been resting well throughout the night. Patient does not had any further complaints at this time. A new bag of LR was able to be hung at 05:33 and is currently infusing at 100 mL/hr. Bed alarm is on and call light is within reach.
[2023-09-27 07:09] LABS: Chloride 104 mmol/L (98-107); Potassium 3.2 mmoL/L (3.5-5.1); Sodium 138 mmol/L (136-145)
[2023-09-27 07:12] LABS: Alanine Aminotransferase 28 U/L (12-78); Albumin Level 3.3 g/dl (3.5-5.0); Albumin/Globulin Ratio 1.1 (1.1-1.8); Alkaline Phosphatase 103 U/L (38-126); Anion Gap 7.2 mEq/L (5-15); Aspartate Amino Transferase 42 U/L (14-36); Bilirubin,Total 0.3 mg/dl (0.2-1.3); Blood Urea Nitrogen 28 mg/dl (7-17); Calcium 8.5 mg/dl (8.4-10.2); Carbon Dioxide 30 mmol/L (22.0-30.0); Creatine Kinase 666 U/L (30-135); Creatinine Clearance Estimated 54 mL/min (50-200); Estimated Glomerular Filt Rate 43 ml/min (>60); GFR (African American) 52 ML/MIN (>60); Glucose 107 mg/dl (74-100); Lactic Acid 0.9 mmol/L (0.7-2.1); Magnesium 1.9 mg/dl (1.6-2.3); Total Protein,Serum 6.3 g/dl (6.3-8.2)
[2023-09-27 07:15] LABS: Basophils # 0.1 K/mm3 (0-0.2); Basophils % 0.6 % (0.1-2.0); Eosinophils # 0.1 K/mm3 (0.0-0.4); Eosinophils % 0.9 % (0.1-12.0); Hematocrit 34.9 % (37.0-47.0); Lymphocytes # 3.2 K/mm3 (0.7-4.5); Lymphocytes % 21.5 % (10-50); Mean Corpuscular HGB Conc 32.9 g/dL (31.8-35.4); Mean Corpuscular Hemoglobin 29.9 pg (27.0-31.2); Mean Corpuscular Volume 91.1 fl (81-99); Mean Platelet Volume 8.2 fl (7.4-10.4); Monocytes # 0.9 K/mm3 (0.1-1.0); Monocytes % 5.9 % (1.7-9.3); Neutrophils # 10.5 K/mm3 (1.8-7.8); Neutrophils % 71.1 % (37.0-80.0); Platelet Count 296 K/mm3 (142-424); Red Blood Count 3.83 M/mm3 (4.20-5.40); White Blood Count 14.7 K/mm3 (4.8-10.8)
[2023-09-27 07:19] LABS: Hemoglobin 11.2 g/dL (12.2-16.2)
[2023-09-27] MEDS: HEPARIN SODIUM 5,000 UNIT/ML VIAL 5000 UNIT SQ ×2 (09:13→20:44)
[2023-09-27] MEDS: BISOPROLOL 5MG TABLET 5 MG PO (09:13)
--- NOTE | 2023-09-27 12:24 | P.PN_ITS ---
Subjective *Date: 09/27/23 *Time: 14:50 Interval history: Feeling better this morning. Daughter at bedside. Swelling around eye improving. No nausea or vomiting. No chest pain. States she is getting up to the bathroom with assistance. Medical Exam Vital signs and Labs for Last 24 Hours: Vital Signs Temp Pulse Pulse Resp BP BP Pulse Ox 09/27/23 10:40 09/27/23 09:00 09/27/23 08:00 125 H 09/27/23 07:50 109 H 93 L 09/27/23 07:44 97.8 F 109 H 19 140/64 93 L 09/27/23 06:51 09/27/23 05:00 09/27/23 04:00 98.4 F 112 H 16 146/78 H 94 L 09/27/23 04:00 100 H 09/27/23 03:12 09/27/23 01:00 09/27/23 00:00 108 H 09/27/23 00:00 97.9 F 112 H 16 139/72 95 09/26/23 23:00 09/26/23 21:00 09/26/23 20:00 131 H 93 L 09/26/23 20:00 98.6 F 131 H 16 122/81 93 L 09/26/23 19:32 98.9 F 123 H 20 165/74 H 09/26/23 18:00 123 H 165/74 H 97 09/26/23 17:31 125 H 161/71 H 99 09/26/23 15:30 124 H 196/79 H 99 09/26/23 15:07 98.9 F 123 H 20 209/100 H 99 09/26/23 15:00 124 H 203/94 H 100 09/26/23 14:56 123 H 209/100 H 98 09/26/23 14:50 124 H 216/112 H 98 O2 Del Method 09/27/23 10:40 Room Air 09/27/23 09:00 Room Air 09/27/23 08:00 09/27/23 07:50 Room Air 09/27/23 07:44 Room Air 09/27/23 06:51 Room Air 09/27/23 05:00 Room Air 09/27/23 04:00 Room Air 09/27/23 04:00 09/27/23 03:12 Room Air 09/27/23 01:00 Room Air 09/27/23 00:00 09/27/23 00:00 Room Air 09/26/23 23:00 Room Air 09/26/23 21:00 Room Air 09/26/23 20:00 Room Air 09/26/23 20:00 Room Air 09/26/23 19:32 Room Air 09/26/23 18:00 09/26/23 17:31 Room Air 09/26/23 15:30 Room Air 09/26/23 15:07 Room Air 09/26/23 15:00 Room Air 09/26/23 14:56 Room Air 09/26/23 14:50 Room Air Intake and Output 09/26/23 09/27/23 09/27/23 23:59 07:59 15:59 Intake Total 491 / 1882 1391 / 1882 Output Total 0 / 0 0 / 0 Balance 491 / 1882 1391 / 1882 Intake: Intake, Oral Amount 111 / 711 600 / 711 Intake, Total IV Amount 380 / 1171 791 / 1171 Lactated Ringers 1000ML 1,000 380 / 1171 791 / 1171 ml @ 100 mls/hr IV .Q10H [facility] Rx #:[id number] Output: Output, Urine Amount 0 / 0 0 / 0 Other: Number of Voids 1 Number of Unmeasured Voids 1 1 Number of Bowel Movements 1 Weight 90.22 kg 90.22 kg Patient Weight 09/27/23 23:59 Weight 90.22 kg Laboratory Results - last 24 hr 09/26/23 15:00: WBC 24.4 H*, RBC 4.81, Hgb 14.4, Hct 43.6, MCV 90.6, MCH 30.0, MCHC 33.0, RDW 14.6, Plt Count 373, MPV 8.6, Neut % (Auto) 87.0 H, Lymph % (Auto) 7.8 L, [place] % (Auto) 3.9, Eos % (Auto) 1.0, Baso % (Auto) 0.3, Neut # (Auto) 21.2 H, Lymph # (Auto) 1.9, [place] # (Auto) 1.0, Eos # (Auto) 0.2, Baso # (Auto) 0.1, Total Counted 100, Neutrophils % (Manual) 91 H, Lymphocytes % (Manual) 7 L, Monocytes % (Manual) 1 L, Basophils % (Manual) 1.0, Platelet Estimate Normal, RBC Morphology Normal, PT 9.8 L, INR 0.86 L, APTT 19.9 L, Sodium 140, Potassium 3.9, Chloride 102, Carbon Dioxide 27, Anion Gap 14.9, BUN 30 H, Creatinine 1.00, Estimated Creat Clear 60, Estimated GFR 53 L, Est GFR ( Amer) 65, Glucose 149 H, Calcium 9.7, Total Bilirubin 0.8, AST 60 H, ALT 45, Alkaline Phosphatase 146 H, Total Creatine Kinase 830 H*, Troponin I 0.06 H, Total Protein 8.5 H, Albumin 4.6, Globulin 3.9 H, Albumin/Globulin Ratio 1.2, Lipase 129 09/26/23 15:06: VBG pH 7.41, VBG pCO2 39.5, VBG pO2 58.6 H, VBG HCO3 24.3, VBG Total CO2 25.5, VBG O2 Saturation 91.1 H, VBG Base Excess -0.5, VBG Lactic Acid 4.2 H 09/26/23 18:49: Troponin I 0.09 H 09/26/23 20:39: Lactate 2.5 H, Troponin I 0.10 H 09/26/23 23:10: Lactate 2.6 H 09/27/23 06:20: WBC 14.7 H D, RBC 3.83 L, Hgb 11.2 L D, Hct 34.9 L, MCV 91.1, MCH 29.9, MCHC 32.9, RDW 15.0, Plt Count 296, MPV 8.2, Neut % (Auto) 71.1, Lymph % (Auto) 21.5, [place] % (Auto) 5.9, Eos % (Auto) 0.9, Baso % (Auto) 0.6, Neut # (Auto) 10.5 H, Lymph # (Auto) 3.2, [place] # (Auto) 0.9, Eos # (Auto) 0.1, Baso # (Auto) 0.1, Sodium 138, Potassium 3.2 L, Chloride 104, Carbon Dioxide 30, Anion Gap 7.2, BUN 28 H, Creatinine 1.20 H, Estimated Creat Clear 54, Estimated GFR 43 L, Est GFR ( Amer) 52 L, Glucose 107 H D, Lactate 0.9, Calcium 8.5, Magnesium 1.9, Total Bilirubin 0.3, AST 42 H D, ALT 28 D, Alkaline Phosphatase 103, Total Creatine Kinase 666 H*, Total Protein 6.3 D, Albumin 3.3 L D, Globulin 3.0, Albumin/Globulin Ratio 1.1 I & O for Labs for Last 24 Hours: Intake & Output 09/24/23 09/25/23 09/26/23 09/27/23 23:59 23:59 23:59 23:59 Intake Total 1881 Output Total 0 / 0 Balance 1881 Weight 90.22 kg 90.22 kg Constitutional: Present no acute distress and obese Comment:: Swelling of right eye and cheek. Abrasions to right cheek. Vision intact. Respiratory: Present normal respiratory effort; Absent rhonchi, wheezes or crack les Cardiac: Present Reg Rate and Rhythm GI: Present soft and normal bowel sounds; Absent distention or tenderness Extremities: Present full ROM Comment:: Abrasions to knees bilaterally. No significant edema. Skin: Absent erythema Comment:: Abrasions to knees. Abrasions on face. Neuro: Present Grossly Intact, alert, awake, oriented x 3 and moves all extremities Assessment and Plan *Assessment and plan (1) Rhabdomyolysis: Status: Acute Category: Medical Code(s): M62.82 - Rhabdomyolysis (2) HLD (hyperlipidemia): Status: Acute Qualifiers: Hyperlipidemia type: unspecified Qualified Code(s): E78.5 - Hyperlipidemia, unspecified Category: Medical Code(s): E78.5 - Hyperlipidemia, unspecified (3) HTN (hypertension), benign: Status: Acute Category: Medical Code(s): I10 - Essential (primary) hypertension (4) CKD (chronic kidney disease): Status: Acute Category: Medical Code(s): N18.9 - Chronic kidney disease, unspecified (5) NSTEMI (non-ST elevated myocardial infarction): Status: Acute Category: Medical Code(s): I21.4 - Non-ST elevation (NSTEMI) myocardial infarction (6) Facial trauma: Status: Acute Category: Medical Code(s): S09.93XA - Unspecified injury of face, initial encounter (7) Fall: Status: Acute Category: Medical Code(s): W19.XXXA - Unspecified fall, initial encounter Plan Assessment: This is a 77-year-old female being admitted for rhabdomyolysis secondary to a fall. On my exam, patient is sitting up in bed in no acute distress. Reporting some mild back pain, rated 3/10. No other complaints. Medicine agreed to admit. Feeling somewhat better today. Still has significant bruising of face but showing improvement. Needs therapy eval. Anticipate stability to discharge home with home health tomorrow. Problems addressed as follows: Rhabdomyolysis Mechanical fall -CK elevated at 830 on admission. Improved to 666 this morning. Will finish current bag of IV fluids. Tolerating p.o. fluids. Hold on further IV fluid management -Kidney function with slight bump, BUN 28, creatinine 1.2. Repeat CBC, CMP, CK in the morning. -Therapy to evaluate for safety going home versus rehab. - Tylenol 650 mg as needed every 6 hours for pain morphine 4 mg IV as needed every 4 hours. No doses in the past 24 hours NSTEMI -No EKG changes, no chest pain noted. Troponin remained stable. Would benefit from outpatient cardiology eval after her wounds heal. -Likely from demand due to rhabdo and laying outside on the ground for over 12 hours Leukocytosis Anemia -Likely reactive, elevated at 24 on admission, improved to 14 this morning. No indication for antibiotics. Will continue to monitor with daily CBC. -Hemoglobin 11. Stable. No active signs of bleeding. No new bruising or worsening hematomas CKD stage 3a -Creatinine slightly up from baseline. Avoiding nephrotoxins. Daily labs as ordered. Making good urine. HTN -Continue beta-jairo, will hold diuretics for now until repeat labs show CK appropriately trending down and renal function stable DVT prophylaxis: Heparin CODE STATUS: Full code Surrogate decision maker: Nely [phone] Skin: Low risk
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
[2023-09-27] MEDS: POTASSIUM CHLORIDE 20MEQ TAB 20 MEQ PO ×2 (16:03→20:44)
[2023-09-28] VITALS: BP 144/52; PULSE 76; PULSE 85; RESP 16; TEMP 36.6; O2SAT 94
[2023-09-28 04:00] VITALS: BP 162/75; PULSE 75; PULSE 92; RESP 16; TEMP 36.6; O2SAT 96; BMI 35.2
[2023-09-28 06:31] LABS: Basophils # 0.1 K/mm3 (0-0.2); Basophils % 0.8 % (0.1-2.0); Eosinophils # 0.3 K/mm3 (0.0-0.4); Eosinophils % 2.4 % (0.1-12.0); Hematocrit 34.9 % (37.0-47.0); Hemoglobin 11.4 g/dL (12.2-16.2); Lymphocytes # 3.2 K/mm3 (0.7-4.5); Lymphocytes % 28.1 % (10-50); Mean Corpuscular HGB Conc 32.7 g/dL (31.8-35.4); Mean Corpuscular Hemoglobin 30.3 pg (27.0-31.2); Mean Corpuscular Volume 92.7 fl (81-99); Mean Platelet Volume 8.7 fl (7.4-10.4); Monocytes # 0.8 K/mm3 (0.1-1.0); Neutrophils # 7.1 K/mm3 (1.8-7.8); Neutrophils % 61.8 % (37.0-80.0); Platelet Count 290 K/mm3 (142-424); Red Blood Count 3.77 M/mm3 (4.20-5.40); Red Cell Distribution Width 14.7 % (11.5-17.5); White Blood Count 11.6 K/mm3 (4.8-10.8)
[2023-09-28 07:03] LABS: Alanine Aminotransferase 32 U/L (12-78); Albumin Level 3.3 g/dl (3.5-5.0); Albumin/Globulin Ratio 1.2 (1.1-1.8); Alkaline Phosphatase 137 U/L (38-126); Anion Gap 4.7 mEq/L (5-15); Aspartate Amino Transferase 43 U/L (14-36); Bilirubin,Total 0.3 mg/dl (0.2-1.3); Blood Urea Nitrogen 20 mg/dl (7-17); Calcium 8.9 mg/dl (8.4-10.2); Carbon Dioxide 32 mmol/L (22.0-30.0); Chloride 107 mmol/L (98-107); Creatine Kinase 439 U/L (30-135); Creatinine Clearance Estimated 54 mL/min (50-200); Estimated Glomerular Filt Rate 43 ml/min (>60); GFR (African American) 52 ML/MIN (>60); Globulin 2.7 g/dL (1.3-3.2); Glucose 101 mg/dl (74-100); Magnesium 2.1 mg/dl (1.6-2.3); Potassium 3.7 mmoL/L (3.5-5.1); Sodium 140 mmol/L (136-145)
--- NOTE | 2023-09-28 07:14 | EXP.DC.SUM ---
General Admission date:: 09/26/23 Discharge date: 09/28/23 HPI HPI HPI: Neyda Ridley is a 77-year-old female past medical history significant for HTN, HLD, CKD who presents emergency room today after suffering a mechanical fall down 3 steps. Ms. Ridley states that she was not dizzy or lightheaded, simply tripped over her steps and fell down approximately 3 steps onto the brick. Did not strike the right side of her face. Did have LOC, unable to tell me how long she was unconscious for. She was unable to get up and unfortunately laid outside most of the night and into this morning. Family tried calling her and when they were unable to get a hold of her, found her down in her yard. Denies any neck pain, is having some mild back pain, rated at a 3/10. Denies any numbness or tingling in any of her extremities. No saddle paresthesias noted. No focal neurodeficits noted. Does not take any blood thinners, not on aspirin. No issues prior to the fall. Denies any cough, fever, chest pain, shortness of breath, abdominal pain, bowel bladder dysfunction. No recent weight gain or weight loss, no swelling in her legs or feet. Patient does live by herself, family is supportive and checks on her frequently. Denies tobacco use, alcohol use, illicit drug use. Workup in the ER showed elevated white count of 24.4, BUN slightly elevated at 30, troponin elevated at 0.06, repeat troponin was 0.09. CK elevated at 830, AST slightly bumped at 60. Trauma scan was negative for any fractures. Patient received a 2 L IV fluid bolus in the ER as well as some pain medications. She will be admitted to the hospitalist service for rhabdomyolysis. Hospital Course Hospital Course Hospital Course: This is a 77-year-old female being admitted for rhabdomyolysis secondary to a fall. On my exam, patient is sitting up in bed in no acute distress. Reporting some mild back pain, rated 3/10. No other complaints. Medicine agreed to admit. Patient showed gradual improvement during admission. Requiring minimal pain control. Improved swelling of face, able to open both eyes equally. Denies any chest pain or shortness of breath. Hemodynamically stable. Kidney function improved to baseline. Stable to discharge home for further management as an outpatient. Evaluated by therapy, would benefit from home health PT and a rolling walker. Problems addressed as follows: Rhabdomyolysis Mechanical fall -CK elevated at 830 on admission. Showed improvement during admission, down to 439 by day of discharge. Making adequate urine. Kidney function normal on day of discharge BUN 20, creatinine 1.2. Tolerating p.o. fluids. Overall showing improvement with her bruising and injuries. Swelling of the face markedly improved during admission. Pain controlled with Tylenol. No opiates in 48 hours. Therapy evaluated, recommend discharging home with home health and a rolling walker. Patient independently mobile and agreeable to this plan. NSTEMI -No EKG changes, no chest pain noted. Troponin remained stable. Would benefit from outpatient cardiology eval after her wounds heal. Likely from demand due to rhabdo and laying outside on the ground for over 12 hours Leukocytosis Anemia: - Likely reactive, elevated at 24 on admission, improved to 11 by day of discharge with no antibiotic therapy. Hemoglobin remained stable at 11. No active signs of bleeding. Bruising improving. CKD stage 3a: Creatinine slightly up from baseline initially. Improved by discharge. Making adequate urine. Avoided nephrotoxins during admission. HTN: Continue to beta-jairo during admission. Held diuretics. Okay to resume all blood pressure meds at discharge. Total time spent on discharge 32 minutes in counseling, documentation, chart review, and direct care with patient. Exam Data for Last 24 hours Vital signs and Labs for Last 24 Hours: Temp Pulse Resp BP Pulse Ox O2 Del Method 97.9 F 75 16 162/75 H 96 Room Air 09/28/23 04:00 09/28/23 04:00 09/28/23 04:00 09/28/23 04:00 09/28/23 04:00 09/28/23 04:00 Laboratory Results - last 24 hr 09/27/23 06:20: WBC 14.7 H D, RBC 3.83 L, Hgb 11.2 L D, Hct 34.9 L, MCV 91.1, MCH 29.9, MCHC 32.9, RDW 15.0, Plt Count 296, MPV 8.2, Neut % (Auto) 71.1, Lymph % (Auto) 21.5, Mayes % (Auto) 5.9, Eos % (Auto) 0.9, Baso % (Auto) 0.6, Neut # (Auto) 10.5 H, Lymph # (Auto) 3.2, Mayes # (Auto) 0.9, Eos # (Auto) 0.1, Baso # (Auto) 0.1 09/28/23 05:20: WBC 11.6 H, RBC 3.77 L, Hgb 11.4 L, Hct 34.9 L, MCV 92.7, MCH 30.3, MCHC 32.7, RDW 14.7, Plt Count 290, MPV 8.7, Neut % (Auto) 61.8, Lymph % (Auto) 28.1, Mayes % (Auto) 7.0, Eos % (Auto) 2.4, Baso % (Auto) 0.8, Neut # (Auto) 7.1, Lymph # (Auto) 3.2, Mayes # (Auto) 0.8, Eos # (Auto) 0.3, Baso # (Auto) 0.1 I & O for Last 24 hours: Intake & Output 09/25/23 09/26/23 09/27/23 09/28/23 23:59 23:59 23:59 23:59 Intake Total 3474 / 3474 Output Total 0 / 0 0 / 0 Balance 3474 / 3474 0 / 0 Weight 90.22 kg 90.22 kg 90.22 kg Constitutional Constitutional: no acute distress, obese and cooperative *Routine HEENT Exam Head: Present normocephalic; Absent atraumatic Eye: Present EOMI and PERRL ENT: Present mucous membranes moist Comments: Bruising of right side of face with abrasions. Swelling improved, able to open her right eye fully. *Routine Neck Exam Neck: Present supple; Absent lymphadenopathy *Routine Respiratory Exam Respiratory: Present CTA bilaterally; Absent respiratory distress, rhonchi, wheezes or crackles *Routine Cardiovascular Exam Cardiovascular: Present RRR *Routine Abdominal Exam Abdominal: Present soft and normoactive bowel sounds; Absent tenderness *Routine Rectal Exam Patient deferred: visual exam *Routine Exam Patient deferred: external exam *Routine Extremities Exam Extremities: Absent cyanosis, clubbing or edema Comments: Abrasion on the knees *Routine Skin Exam Skin: Present warm; Absent rash *Routine Neurological Exam Neurological: Present alert, oriented X3 and moving all extremities; Absent altered mental status Results Data Completed and Pending Labs on day of discharge: Labs from last 24 hours 09/28/23 09/27/23 05:20 06:20 WBC 11.6 H 14.7 H D RBC 3.77 L 3.83 L Hgb 11.4 L 11.2 L D Hct 34.9 L 34.9 L MCV 92.7 91.1 MCH 30.3 29.9 MCHC 32.7 32.9 RDW 14.7 15.0 Plt Count 290 296 MPV 8.7 8.2 Neut % (Auto) 61.8 71.1 Lymph % (Auto) 28.1 21.5 Mayes % (Auto) 7.0 5.9 Eos % (Auto) 2.4 0.9 Baso % (Auto) 0.8 0.6 Neut # (Auto) 7.1 10.5 H Lymph # (Auto) 3.2 3.2 Mayes # (Auto) 0.8 0.9 Eos # (Auto) 0.3 0.1 Baso # (Auto) 0.1 0.1 DS: Diagnosis Discharge Diagnosis (1) Rhabdomyolysis: Status: Acute Code(s): M62.82 - Rhabdomyolysis (2) HLD (hyperlipidemia): Status: Acute Code(s): E78.5 - Hyperlipidemia, unspecified Qualifiers: Hyperlipidemia type: unspecified Qualified Code(s): E78.5 - Hyperlipidemia, unspecified (3) HTN (hypertension), benign: Status: Acute Code(s): I10 - Essential (primary) hypertension (4) CKD (chronic kidney disease): Status: Acute Code(s): N18.9 - Chronic kidney disease, unspecified (5) NSTEMI (non-ST elevated myocardial infarction): Status: Acute Code(s): I21.4 - Non-ST elevation (NSTEMI) myocardial infarction (6) Facial trauma: Status: Acute Code(s): S09.93XA - Unspecified injury of face, initial encounter (7) Fall: Status: Acute Code(s): W19.XXXA - Unspecified fall, initial encounter Meds Home Medications and Allergies Home Medications ?Medication ?Instructions ?Recorded ?Confirmed ?Type potassium chloride 10 mEq 10 meq PO BID 04/15/23 09/27/23 History tablet,extended release bisoprolol fumarate 5 mg tablet 5 mg PO DAILY 07/08/23 09/26/23 History furosemide 20 mg tablet 20 mg PO TID 90 days #270 tabs 08/25/23 09/26/23 Rx hydrochlorothiazide 12.5 mg tablet 12.5 mg PO DAILY 09/26/23 09/26/23 History New Prescriptions to Start Prescriptions: Allergies Allergy/AdvReac Type Severity Reaction Status Date / Time Penicillins Allergy Intermediate Rash Verified 07/08/23 15:01 tetanus toxoid, adsorbed Allergy Unknown SWELLS Verified 07/08/23 15:01 [TETANUS TOXOID, ADSORBED] THROAT Discharge Plan Disposition Patient Disposition: Home Health Service Condition: Fair Discharge Order Discharge Orders: Discharge Order (Routine); Ordered 09/28/23 Ordered By: Joe Quijano Follow up Plan Follow up with: Trung Cartagena [Referring] - Enter time for follow up (1-2 weeks in [place] office will call patient ) Cuca Means APRN [Primary Care Provider] - 10/05/23 9:00 am Prescriptions/Medication Reconciliation: Continued potassium chloride 10 mEq tablet extended release 10 meq PO BID bisoprolol fumarate 5 mg tablet 5 mg PO DAILY furosemide 20 mg tablet 20 mg PO TID 90 Days Qty: 270 0RF hydrochlorothiazide 12.5 mg tablet 12.5 mg PO DAILY Other Ambulatory Orders: Home Medical Equipment (Routine) Location: None Selected Ordered By: Joe Quijano Problem Reconciliation Problems Reviewed?: Yes Patient Discharge Instructions ACTIVITY: Continue current activity DIET: continue same diet Patient Instructions: How to Prevent Falls, DI for Rhabdomyolysis Print Language: Maldivian Providers Primary Care Provider: Cuca Means Admit Provider: Joe Quijano Attending Provider: Joe Quijano
[2023-09-28 08:00] VITALS: BP 133/62; PULSE 75; PULSE 76; RESP 16; TEMP 36.6; O2SAT 97
[2023-09-28] MEDS: POTASSIUM CHLORIDE 20MEQ TAB 20 MEQ PO ×2 (08:04→13:15)
[2023-09-28] MEDS: BISOPROLOL 5MG TABLET 5 MG PO (08:04)
[2023-09-28] MEDS: HEPARIN SODIUM 5,000 UNIT/ML VIAL 5000 UNIT SQ (08:04)
--- NOTE | 2023-09-28 08:50 | SW/DCPLANNER ---
Addendum entered by Amna Dailey 09/28/23 15:10: Lashae contreras/ [facility] stated that services will start this week. Original Note: I spoke w/ patient this AM regarding discharge plans. PT evaluated patient and recommended home health services. Patient is agreeable to home health services at this time and prefers [facility]. Patient information/order will be faxed to [facility] once medically stable for discharge. Per patient she may discharge home this afternoon.
--- NOTE | 2023-09-28 10:01 | HMH.OTEV ---
OT Inpatient Evaluation Rehab OT IP Evaluation Start: 09/26/23 18:11 Freq: ONCE Status: Active Protocol: Document 09/28/23 09:50 RMARSHALL (Rec: 09/28/23 10:00 [id number] Rehab OT IP Assessment Subjective History Pt oriented x 3 on arrival. Pt agreeable to complete therapy evaluation. Pt admitted on 09/26/23 due to fall. History and physical report: Neyda Ridley is a 77-year-old female past medical history significant for HTN, HLD, CKD who presents emergency room today after suffering a mechanical fall down 3 steps. Ms. Ridley states that she was not dizzy or lightheaded, simply tripped over her steps and fell down approximately 3 steps onto the brick. Did not strike the right side of her face. Did have LOC, unable to tell me how long she was unconscious for. She was unable to get up and unfortunately laid outside most of the night and into this morning. Family tried calling her and when they were unable to get a hold of her, found her down in her yard. Denies any neck pain, is having some mild back pain, rated at a 3/10. Denies any numbness or tingling in any of her extremities. No saddle paresthesias noted. No focal neurodeficits noted. Does not take any blood thinners, not on aspirin. No issues prior to the fall. Denies any cough , fever, chest pain, shortness of breath, abdominal pain, bowel bladder dysfunction. No recent weight gain or weight loss, no swelling in her legs or feet. Patient does live by herself, family is supportive and checks on her frequently. Denies tobacco use, alcohol use, illicit drug use. Subjective I am sore. Prior to being in the hospital , pt lives at home alone. Pt claims normally she is independent with all ADLs and IADLs. Pt does have a person come in 4 days a week and she is there for 4 hours a day. Pt normally does not require any type of AE during functional transfers. Pt does not use any type of AE during functional transfers. Objective Patient Orientation Person,Place,Birthday Right Upper Extremity Gross ROM WFL Left Upper Extremity Gross ROM WFL Transfer Training Sit/Stand Transfer Assist Level Contact Guard/Hand Hold Chair Transfer Ability Contact Guard/Hand Hold Chair Transfer Technique Sit to/from Ambulatory Chair Transfer Assistive Devices None Rehab OT IP prob,goals,plan Problems Date of Evaluation: 09/28/23 OT IP Problems Bed Mobility,Transfers,Balance ,Self care,Safety Rehab Potential Rehab Potential Good Equipment Needs Assistive Devices None / NA Plan OT intervention Plan Bed Mobility,Transfers,Balance ,Self care,Safety,Therapeutic Exercise OT Plan Frequency Daily Duration LOS Discharge Goals Bed Mobility Ability Standby Assistance Sit to Stand Chair Transfer Ability Supervision/Stand by Chair Transfer Ability Supervision/Stand by Chair Transfer Technique Sit to/from Ambulatory Chair Transfer Assistive Devices None Feeding Ability Independent Lower Body Dressing Ability Contact Guard Upper Body Dressing Ability Standby Assistance Bathing Ability Standby Assistance Performing Toilet Hygiene Ability Standby Assistance Overall Commode/Toilet Transfer Ability Standby Assistance Commode/Toilet Transfer Technique Sit to/from Ambulatory Oral Care Assist Standby Assistance Decrease in Endurance Yes Discharge Plan OT Discharge Plan Pt will continue to be seen for OT services while at [facility]. Pt can return home once she is medically stable per physician. Therapist recommends OT evaluation upon returning home. Continued skilled therapy is important in order for patient to improve strength, safety, endurance, ADL independence, and functional transfers to reach PLOF. Eval Complexity Eval Charge Codes 18339 - Moderate Complexity PHYSICIAN CERTIFICATION: I certify the specified therapy services for Neyda Ridley are required, authorized, and reviewed every 30 days.
--- NOTE | 2023-09-28 10:35 | HMH.PTEV ---
Physical Therapy Evaluation Rehab PT IP Evaluation Start: 09/26/23 18:11 Freq: ONCE Status: Active Protocol: Document 09/28/23 09:57 XAVI (Rec: 09/28/23 10:34 PHORRENATO [id number]) Subjective/History History History Patient Neyda Ridley is a 77 yof who was admitted on due to a recent fall down a few stairs. Patient laid on the ground for multiple hours until help was able to arrive and mentioned that she lost consciousness. Patient has significant bruising on the right side of her face. The patient's past medical history significant for HTN, HLD, and CKD. While in the ER a trauma scan was completed showing negative results for any fxs. Patient has someone from [employer] who comes in for 4 hrs and helps her with ADL's. Subjective Subjective Patient currently has no complaints at this time but mentioned that she was ready to go home, due to someone currently overseeing care for her dog. New diagnosis of cancer in past 12 No months? Rehab PT IP Eval Objective Appearance Patient Behavior Appropriate,Cooperative Patient Orientation Person,Place,Name,Age,Birthday ,Situation Difficulty following instructions none Speech Pattern Clear,Appropriate Ambulation Patient Able to Ambulate Yes Ambulation Observation IP General Gait Pattern Observation Narrow Based Gait Ambulation Distance (feet) 75 Ambulation Assistive Device None Ambulation Ability Contact Guard/Hand Hold Balance Ability to Arise Able, uses arms to help Sitting Balance Steady, safe Standing Balance Steady, wide stance Dynamic Sitting Balance Ability Good Dynamic Standing Balance Ability Good Transfers Sit to Stand Chair Transfer Ability Minimal x 1 (25% assist) MMT RLE PT MMT WFL LLE PT MMT WFL Rehab PT IP prob,goals,plan Problems Date of Evaluation: 09/28/23 PT IP Problems Self care,Safety Rehab Potential Rehab Potential Good Equipment Needs Assistive Devices None / NA Plan PT Intervention Plan Self care,Safety PT Plan Frequency Daily Duration LOS Discharge Goals Bed Transfer Ability Independent Sit to Stand Chair Transfer Ability Independent Ambulation Assistive Device None Ambulation Distance (feet) 75 Discharge Plan PT Discharge Plan Patient is a good candidate for skilled PT at this time to address the safe concerns with B LE weakness, she will greatly benefit to improve her ambulation endurance and QOL. It would be recommended that she gets home health to also address her limitations with ambulation within her home and community. Eval Complexity Eval Charge Codes 64636 - High Complexity PHYSICIAN CERTIFICATION: I certify the specified therapy services for Neyda Ridley are required, authorized, and reviewed every 30 days.
[2023-09-28 12:00] VITALS: PULSE 80
--- NOTE | 2023-09-29 10:52 | CARE MANAGER ---
Called and spoke with patient regarding recent discharge. Stated that she is doing well and aware of f/u appts. Patient voiced no concerns at time of call.
== END 2023-09-28 13:25 | disposition home health service (06) ==
LOC: ER 18:32 → 2ND 18:47
PROVIDERS: Nurse Practitioner Acute Care; Admitting Provider Internal Medicine Adolescent Medicine; Emergency Provider Emergency Medicine; PCP Nurse Practitioner Family; Visit Provider Internal Medicine Adolescent Medicine
DX: M62.82 Rhabdomyolysis (principal); S00.83XA Contusion of other part of head, initial encounter; I12.9 Hypertensive chronic kidney disease with stage 1 through stage 4 chronic kidney disease, or unspecified chronic kidney disease; W10.8XXA Fall (on) (from) other stairs and steps, initial encounter; Y92.017 Garden or yard in single-family (private) house as the place of occurrence of the external cause; N18.31 Chronic kidney disease, stage 3a; I21.4 Non-ST elevation (NSTEMI) myocardial infarction; E78.5 Hyperlipidemia, unspecified; S09.93XA Unspecified injury of face, initial encounter; W19.XXXA Unspecified fall, initial encounter; E55.9 Vitamin D deficiency, unspecified; D72.829 Elevated white blood cell count, unspecified
CPT/HCPCS: 36415; 70450; 70486; 70496; 70498; 71275; 72125; 72128; 72131; 72192; 73030; 73060; 74174; 80053; 82550; 82803; 83605; 83690; 83735; 84484; 85007; 85025; 85027; 85610; 85730; 93005; 97163; 97166; 99221; 99285; G0378; J0131; J1644; J2270; J2405; J7120; Q9967

== ENCOUNTER 2023-10-05 07:21 | Outpatient (CLI) | payer MEDICARE, MEDICAID, SELFPAY ==
[2023-10-05 12:37] LABS: Alanine Aminotransferase 32 U/L (12-78); Albumin Level 4.1 g/dl (3.5-5.0); Albumin/Globulin Ratio 1.3 (1.1-1.8); Alkaline Phosphatase 100 U/L (38-126); Anion Gap 12.7 mEq/L (5-15); Aspartate Amino Transferase 26 U/L (14-36); Bilirubin,Total 0.4 mg/dl (0.2-1.3); Blood Urea Nitrogen 23 mg/dl (7-17); Calcium 9.6 mg/dl (8.4-10.2); Carbon Dioxide 28 mmol/L (22.0-30.0); Chloride 105 mmol/L (98-107); Creatine Kinase 58 U/L (30-135); Estimated Glomerular Filt Rate 43 ml/min (>60); GFR (African American) 52 ML/MIN (>60); Globulin 3.1 g/dL (1.3-3.2); Glucose 100 mg/dl (74-100); Potassium 4.7 mmoL/L (3.5-5.1); Sodium 141 mmol/L (136-145); Total Protein,Serum 7.2 g/dl (6.3-8.2)
== END 2023-10-05 23:59 | disposition home or self-care (01) ==
LOC: LAB.DROPOF 10-07 07:22
PROVIDERS: PCP Nurse Practitioner Family; Visit Provider Nurse Practitioner Family
DX: M62.82 Rhabdomyolysis (principal)
CPT/HCPCS: 80053; 82550

== ENCOUNTER 2024-01-01 15:37 | Outpatient (CLI) | payer MEDICARE, MEDICAID, SELFPAY ==
[2024-01-01 12:51] LABS: Basophils # 0.1 K/mm3 (0-0.2); Basophils % 0.8 % (0.1-2.0); Eosinophils # 0.4 K/mm3 (0.0-0.4); Eosinophils % 3.7 % (0.1-12.0); Hematocrit 40.9 % (37.0-47.0); Hemoglobin 13.4 g/dL (12.2-16.2); Lymphocytes # 2.9 K/mm3 (0.7-4.5); Lymphocytes % 25.3 % (10-50); Mean Corpuscular HGB Conc 32.7 g/dL (31.8-35.4); Mean Corpuscular Hemoglobin 29.5 pg (27.0-31.2); Mean Corpuscular Volume 90.1 fl (81-99); Monocytes # 0.6 K/mm3 (0.1-1.0); Monocytes % 4.9 % (1.7-9.3); Neutrophils # 7.6 K/mm3 (1.8-7.8); Neutrophils % 65.4 % (37.0-80.0); Platelet Count 335 K/mm3 (142-424); Red Blood Count 4.54 M/mm3 (4.20-5.40); Red Cell Distribution Width 13.6 % (11.5-17.5); White Blood Count 11.6 K/mm3 (4.8-10.8)
[2024-01-01 13:13] LABS: Alanine Aminotransferase 21 U/L (12-78); Albumin Level 4.4 g/dl (3.5-5.0); Albumin/Globulin Ratio 1.5 (1.1-1.8); Alkaline Phosphatase 116 U/L (38-126); Anion Gap 11.3 mEq/L (5-15); Aspartate Amino Transferase 29 U/L (14-36); Bilirubin,Total 0.6 mg/dl (0.2-1.3); Blood Urea Nitrogen 21 mg/dl (7-17); Calcium 9.3 mg/dl (8.4-10.2); Carbon Dioxide 27 mmol/L (22.0-30.0); Chloride 105 mmol/L (98-107); Chol/HDL Ratio 5.7 (1-3.5); Cholesterol 285 mg/dl (140-200); Estimated Glomerular Filt Rate 48 ml/min (>60); GFR (African American) 58 ML/MIN (>60); Globulin 2.9 g/dL (1.3-3.2); Glucose 97 mg/dl (74-100); HDL Cholesterol 50 mg/dl (40-60); Potassium 4.3 mmoL/L (3.5-5.1); Sodium 139 mmol/L (136-145); Total Protein,Serum 7.3 g/dl (6.3-8.2); Triglycerides 261 mg/dl (30-150); VLDL Cholesterol 52 mg/dL (0-40)
[2024-01-01 13:24] LABS: Direct LDL Cholesterol 164.46 mg/dL (100-129)
[2024-01-01 13:31] LABS: 25-OH Vitamin D, Total 20.2 ng/mL (30-100)
[2024-01-01 13:44] LABS: Thyroid Stimulating Hormone 1.85 uIU/mL (0.465-4.68)
[2024-01-01 14:03] LABS: Vitamin B12 > 1000 pg/mL (239-931)
== END 2024-01-01 23:59 | disposition home or self-care (01) ==
LOC: LAB.DROPOF 15:38
PROVIDERS: PCP Nurse Practitioner Family; Visit Provider Nurse Practitioner Family
DX: R19.7 Diarrhea, unspecified (principal); E53.8 Deficiency of other specified B group vitamins; E78.5 Hyperlipidemia, unspecified; E55.9 Vitamin D deficiency, unspecified; R79.89 Other specified abnormal findings of blood chemistry; Z68.35 Body mass index [BMI] 35.0-35.9, adult; E66.9 Obesity, unspecified
CPT/HCPCS: 80053; 80061; 82306; 82607; 84443; 85025

== ENCOUNTER 2024-01-22 09:01 | Outpatient (CLI) | payer MEDICARE, MEDICAID, SELFPAY ==
--- NOTE | 2024-01-22 09:05 | XR_ITS ---
FINAL REPORT TECHNIQUE: Bone mineral density was calculated of the lumbar spine and hip. CLINICAL HISTORY: screening COMPARISON: None FINDINGS: Using L1-4, the bone mineral density of the spine is 1.273 g/cm2, corresponding to T-score of 2.1. Using the left hip, the bone mineral density of the femoral neck is 0.907 g/cm2, corresponding to a T-score of -0.3. Using the right hip, the bone mineral density of the femoral neck is 0.877 g/cm?, corresponding to a T-score of 0.2. NOTE: T-score: Standard deviation compared with peak bone mass of young adult mean. *Following the recommendations of the International Society of Bone densitometry, classification of hip BMD is based on the lower of two T-scores; total hip or femoral neck. IMPRESSION: Normal bone mineral density of the lumbar spine and the bilateral hips. Reviewed, Interpreted and Dictated by Jonathan Mack III, MD Transcribed by Gwendolyn Davis Authenticated and [facility]
== END 2024-01-22 23:59 | disposition home or self-care (01) ==
LOC: RAD 09:02
PROVIDERS: PCP Nurse Practitioner Family; Visit Provider Nurse Practitioner Family
DX: Z13.820 Encounter for screening for osteoporosis (principal); E55.9 Vitamin D deficiency, unspecified; E53.8 Deficiency of other specified B group vitamins; Z68.34 Body mass index [BMI] 34.0-34.9, adult; Z87.39 Personal history of other diseases of the musculoskeletal system and connective tissue; Z79.899 Other long term (current) drug therapy
CPT/HCPCS: 77080

== ENCOUNTER 2024-05-18 11:13 | Outpatient (CLI) | payer MEDICARE, MEDICAID, SELFPAY ==
[2024-05-18 13:09] LABS: Basophils # 0.1 K/mm3 (0-0.2); Basophils % 0.9 % (0.1-2.0); Eosinophils # 0.3 K/mm3 (0.0-0.4); Hematocrit 41.2 % (37.0-47.0); Hemoglobin 12.8 g/dL (12.2-16.2); Lymphocytes # 2.6 K/mm3 (0.7-4.5); Mean Corpuscular HGB Conc 31.1 g/dL (31.8-35.4); Mean Corpuscular Hemoglobin 28.2 pg (27.0-31.2); Mean Corpuscular Volume 90.7 fl (81-99); Mean Platelet Volume 10.9 fl (7.4-10.4); Monocytes # 0.8 K/mm3 (0.1-1.0); Monocytes % 6.9 % (1.7-9.3); Neutrophils # 7.1 K/mm3 (1.8-7.8); Neutrophils % 64.7 % (37.0-80.0); Platelet Count 335 K/mm3 (142-424); Red Blood Count 4.54 M/mm3 (4.20-5.40); Red Cell Distribution Width 13.5 % (11.5-17.5); White Blood Count 10.9 K/mm3 (4.8-10.8)
[2024-05-18 13:33] LABS: Albumin Level 4.8 g/dl (3.5-5.0); Chloride 101 mmol/L (98-107); Potassium 4.8 mmoL/L (3.5-5.1); Sodium 139 mmol/L (136-145)
[2024-05-18 13:35] LABS: Alanine Aminotransferase 27 U/L (12-78); Aspartate Amino Transferase 30 U/L (14-36); Blood Urea Nitrogen 37 mg/dl (7-17); Estimated Glomerular Filt Rate 43 ml/min (>60); GFR (African American) 52 ML/MIN (>60)
[2024-05-18 13:36] LABS: Albumin/Globulin Ratio 1.7 (1.1-1.8); Alkaline Phosphatase 112 U/L (38-126); Anion Gap 12.8 mEq/L (5-15); Bilirubin,Total 0.4 mg/dl (0.2-1.3); Calcium 10.6 mg/dl (8.4-10.2); Carbon Dioxide 30 mmol/L (22.0-30.0); Chol/HDL Ratio 5.4 (1-3.5); Cholesterol 274 mg/dl (140-200); Globulin 2.9 g/dL (1.3-3.2); Glucose 105 mg/dl (74-100); HDL Cholesterol 51 mg/dl (40-60); Total Protein,Serum 7.7 g/dl (6.3-8.2); Triglycerides 258 mg/dl (30-150); VLDL Cholesterol 52 mg/dL (0-40)
[2024-05-18 13:47] LABS: Direct LDL Cholesterol 154.04 mg/dL (100-129)
[2024-05-18 13:59] LABS: Microalbumin/Creatinine Ratio 16.6
[2024-05-18 14:02] LABS: Creatinine,Urine Random 39 mg/dL (Not Estab.)
[2024-05-18 14:05] LABS: Thyroid Stimulating Hormone 1.54 uIU/mL (0.465-4.68)
[2024-05-18 15:05] LABS: Hemoglobin A1C 5.7 % (4.0-6.0)
[2024-05-19 14:16] LABS: Endomysial IgA Antibody Negative (Negative)
[2024-05-19 18:58] LABS: Deamidated Gliadin Abs, IgA 6 units (0-19); Deamidated Gliadin Abs, IgG 2 units (0-19); Tissue Transglutaminase IgA Ab <2 U/mL (0-3); Tissue Transglutaminase IgG Ab <2 U/mL (0-5)
[2024-05-21 09:15] LABS: Reticulin IgA Antibody Negative titer (Neg:<1:2.5)
== END 2024-05-18 23:59 | disposition home or self-care (01) ==
LOC: LAB.DROPOF 05-19 10:50
PROVIDERS: PCP Nurse Practitioner Family; Visit Provider Nurse Practitioner Family
DX: E78.5 Hyperlipidemia, unspecified (principal); I10 Essential (primary) hypertension; R19.7 Diarrhea, unspecified; R73.9 Hyperglycemia, unspecified; E66.9 Obesity, unspecified; Z68.35 Body mass index [BMI] 35.0-35.9, adult
CPT/HCPCS: 80053; 80061; 82043; 82570; 83036; 83516; 84443; 85025; 86255; 86256

== ENCOUNTER 2024-07-01 08:45 | Emergency (ER) | payer MEDICARE, MEDICAID, SELFPAY ==
[2024-07-01 08:55] VITALS: BP 166/74; PULSE 82; RESP 18; TEMP 36.8; O2SAT 95; BMI 37.0
--- OUTSIDE RECORDS SUMMARY | 2024-07-01 09:03 | XMS_ITS ---
Laboratory report Created on: May 24, 2024 RIVER NEGRON : 1945 Sex: Female Author Organization Unknown PROBLEMS Problems List Code Description RESULTS Laboratory Orders Date Order Code Test 2024-05-18 [id number] RETICULIN IGA AN TIBODIES 2024-05-18 [id number] T-TRANSGLUTAMINA SE (TTG) IGA 2024-05-18 [id number] ENDOMYSIAL ANTIB GABINO IGA 2024-05-18 [id number] ANTIGLIADIN ABS, IGA 2024-05-18 [id number] ANTIGLIADIN ABS, IGG 2024-05-18 [id number] T-TRANSGLUTAMINA SE (TTG) IGG Laboratory Results Date LOINC Test Value Unit Reference Range Interpre tation 2024-05-18 [id number] RETICULIN IGA AB N TITER NEG:<1:2.5 2024-05-18 [id number] T-TRANSGLUTAMINA SE (TTG) IGA <2 U/ML 0-3 2024-05-18 [id number] ENDOMYSIAL ANTIBODY IGA N NEGAT ROSANGELA 2024-05-18 76125-1 DEAMIDATED GLIAD IN ABS, IGA 6 UNITS 0-19 2024-05-18 [id number] DEAMIDATED GLIAD IN ABS, IGG 2 UNITS 0-19 2024-05-18 [id number] T-TRANSGLUTAMINA SE (TTG) IGG <2 U/ML 0-5
--- OUTSIDE RECORDS SUMMARY | 2024-07-01 09:03 | XMS_ITS ---
Author Organization Unknown TREATMENT PLAN [facility] Start Date Provider Encounter for Check-up [id number] [facility]
--- NOTE | 2024-07-01 09:12 | XR_ITS ---
FINAL REPORT CLINICAL HISTORY: Fall, right pointer finger injury and swelling COMPARISON: None FINDINGS: RIGHT HAND Three views demonstrate no acute fracture or dislocation. There are mild hypertrophic changes at the DIP and PIP joints. The soft tissues are unremarkable. IMPRESSION: Degenerative changes without acute bony abnormality. Reviewed, Interpreted and Dictated by Alexander Pereyra MD Transcribed by Sugey King Authenticated and [facility]
--- NOTE | 2024-07-01 09:12 | XR_ITS ---
FINAL REPORT CLINICAL HISTORY: fall, L wrist injury and swelling FINDINGS: LEFT WRIST Three views demonstrate a 4 mm ossific density over the dorsum of the wrist, best seen on the lateral view. This is consistent with a displaced, triquetral fracture. There is associated soft tissue edema over the dorsum of the hand and wrist. IMPRESSION: Displaced, triquetral fracture. Reviewed, Interpreted and Dictated by Alexander Pereyra MD Transcribed by Fabiana Carmona Authenticated and [facility]
--- NOTE | 2024-07-01 09:12 | CT_ITS ---
FINAL REPORT TECHNIQUE: multiple axial CT images were performed from the foramen magnum to the vertex without enhancement. This study was performed with techniques to keep radiation doses as low as reasonably achievable (ALARA). Individualized dose reduction techniques using automated exposure control or adjustment of mA and/or kV according to the patient's size were employed. CLINICAL HISTORY: fall, struck forehead COMPARISON: 09/26/2023 FINDINGS: The ventricles are enlarged. There is diffuse atrophy. There is periventricular white matter change likely related to small vessel disease. There are lacunar infarcts noted bilaterally, the most prominent in the right basal ganglia. There is physiologic calcification in the basal ganglia bilaterally. There is no evidence of hemorrhage. No masses are identified. No extra-axial fluid is seen. Mild mucoperiosteal thickening is noted in the maxillary and ethmoid sinuses. IMPRESSION: Atrophy and chronic changes without acute process. Reviewed, Interpreted and Dictated by Alexander Pereyra MD Transcribed by Gwendolyn Davis Authenticated and [facility]
--- NOTE | 2024-07-01 09:12 | XR_ITS ---
FINAL REPORT CLINICAL HISTORY: Fall, left pointer finger injury COMPARISON: None FINDINGS: LEFT HAND Three views of the left hand were obtained. On the lateral view, there is a 4 mm ossific density over the dorsum of the wrist consistent with a triquetral fracture. There is extensive soft tissue edema over the dorsum of the hand and the wrist. IMPRESSION: Triquetral fracture with extensive soft tissue edema over the dorsum of the hand of the wrist. Reviewed, Interpreted and Dictated by Alexander Pereyra MD Transcribed by Sugey King Authenticated and [facility]
--- NOTE | 2024-07-01 09:12 | CT_ITS ---
FINAL REPORT TECHNIQUE: Axial images were obtained of the cervical spine by computed tomography. Coronal and sagittal reconstruction process performed. This study was performed with techniques to keep radiation doses as low as reasonably achievable (ALARA). Individualized dose reduction techniques using automated exposure control or adjustment of mA and/or kV according to the patient''s size were employed. CLINICAL HISTORY: fall, struck forehead COMPARISON: 09/26/2023 FINDINGS: Cervical vertebrae show normal height. There is minimal spondylolisthesis of C4 on C5. Small anterior osteophytes are noted at the C5-6 and C6-7 levels. Moderate bilateral facet hypertrophy is noted. No fracture or acute bony abnormality is identified. No evidence of prevertebral soft tissue swelling is noted. No significant changes noted since the prior CT of 09/26/2023. IMPRESSION: No acute bony abnormality or malalignment. Reviewed, Interpreted and Dictated by Alexander Pereyra MD Transcribed by Gwendolyn Davis Authenticated and . [facility]
--- NOTE | 2024-07-01 09:23 | HMH.EDGENADL ---
Discharge Plan Disposition Patient Disposition: Home, Self-Care Condition: Good Prescriptions Prescriptions: No Action potassium chloride 10 mEq tablet extended release 10 meq PO BID dicyclomine 10 mg capsule 10 mg PO BID PRN (Reason: diarrhea) Qty: 180 2RF escitalopram oxalate 10 mg tablet 10 mg PO DAILY Qty: 90 1RF bisoprolol fumarate 5 mg tablet 5 mg PO DAILY furosemide 20 mg tablet 20 mg PO TID 90 Days Qty: 270 0RF hydrochlorothiazide 12.5 mg tablet 12.5 mg PO DAILY Qty: 90 1RF dapagliflozin propanediol [Farxiga] 10 mg tablet 10 mg PO DAILY Qty: 90 3RF tramadol 50 mg tablet 50 mg PO Q6H PRN (Reason: pain) Qty: 30 0RF Referrals Follow up/Referrals: Cuca Means APRN [Primary Care Provider] - See instructions Activity Restrictions/Add. Instructions Additional Instructions/Restrictions: Call your family doctor to establish care for this visit to the emergency department and schedule follow-up within 48 hours to ensure improvement. If you have any worsening of your condition or any other concerning signs or symptoms, return to the emergency department or your primary care doctor for further evaluation. Take Tylenol 1000 mg every 6 hours (4 times daily) and ibuprofen 400 mg every 6 hours (4 times daily) as needed with food and water to prevent GI upset and kidney damage. Be sure to stay plenty hydrated Clinical Impressions Clinical Impression: Fracture of triquetrum of left wrist, Bilateral hand pain, Facial bruising Print Language Print Language: Citizen Of [place] Discharge ED Provider: Charles Scott General Adult HPI General Chief complaint: Fall Stated complaint: AO 06/30/24 1430, fell, inj face and left hand Time Seen by Provider: 07/01/24 08:51 Mode of Arrival: Ambulatory Source of Information: Patient and Relative Description of Symptoms (Recalled from ER Triage Doc. by RN): pt fell at home yesterday afternoon around 3pm and today the pain in her left arm is too much to bear as her left wrist is swollen and bruised as well as abrasions and bruising to right side of forehead/eyebrow. pt takes no blood thinner, pt doesnt remember how she fell or what caused her to fall History of Present Illness HPI narrative: Please note that above description of symptoms, in this electronic medical record under categorization of recalled from ER triage doctor by RN are reflective of an initial nursing assessment, however, is not reflective of my full history and physical exam that was personally taken and clarified. Consequentially, this preceding description of symptoms, which may include the patient's categorized chief complaint in the EMR, do not reflect my personal clinical impression, and the ultimate description of history of present illness and patient stated complaints should be deferred to this section of the note. Unless stated otherwise or congruent with this section of the note, additional signs, symptoms, or incongruence should be interpreted as inaccurate with my clinical impression. Related Data Home Medications ?Medication ?Instructions ?Recorded ?Confirmed potassium chloride 10 mEq 10 meq PO BID 04/15/23 05/18/24 tablet,extended release bisoprolol fumarate 5 mg tablet 5 mg PO DAILY 07/08/23 05/18/24 Previous Rx's ?Medication ?Instructions ?Recorded furosemide 20 mg tablet 20 mg PO TID 90 days #270 tabs 08/25/23 hydrochlorothiazide 12.5 mg tablet 12.5 mg PO DAILY #90 tabs 11/18/23 dicyclomine 10 mg capsule 10 mg PO BID PRN diarrhea #180 caps 01/01/24 escitalopram oxalate 10 mg tablet 10 mg PO DAILY #90 tabs 05/18/24 dapagliflozin propanediol 10 mg 10 mg PO DAILY #90 tabs 05/19/24 tablet (Farxiga) tramadol 50 mg tablet 50 mg PO Q6H PRN pain #30 tabs 06/30/24 Allergies Allergy/AdvReac Type Severity Reaction Status Date / Time Penicillins Allergy Intermediate Rash Verified 05/18/24 10:18 tetanus toxoid, adsorbed Allergy Unknown SWELLS Verified 05/18/24 10:18 (TETANUS TOXOID, ADSORBED) THROAT PFSH [facility] Disclaimer: The information contained in this section may have been updated after the patient was seen, as this information can be updated by other users. Medical History History of back pain Vitamin D deficiency Lumbago HTN (hypertension), benign HLD (hyperlipidemia) History of osteoarthritis Gout attack Surgical History H/O total hysterectomy Family History Other Heart attack Social History Smoking Status: Never smoker second hand exposure: No alcohol intake: current alcohol intake frequency: holidays/special occasions only substance use type: denies use current occupational status: retired Travel in the last 8 weeks: None household members: spouse housing: house current occupational exposures/hazards: No caffeine: Yes Have you lived/traveled outside [place] in past 30 days?: No Contact w/someone who lives/traveled outside [place] past 30 days?: No Exposure to someone with infectious disease in past 14 days?: No Do you have a fever (greater than 100.4 F or 38 C)?: No Have you tested positive for COVID-19: No Exposed to someone with COVID-19 in past 14 days?: No Do you have a sore throat?: No Do you have a cough?: No Do you have any weakness?: No Do you have any diarrhea?: No Are you experiencing any unusual bleeding?: No Do you have any muscle aches/pain?: No Do you have any abdominal pain?: No Are you experiencing loss of taste or smell?: No Other Medical History Have you received the Flu Vaccine for this season: No Have you received the Pneumonia Vaccine: No ROS Obtained: Yes All systems reviewed & no additional complaints except as documented Physical Exam General General appearance: alert Head Head exam: normocephalic and other (Periorbital bruising on the right) Eye Eye exam: Present normal appearance, PERRL, EOMI and other (No evidence of hyphema, proptosis, entrapment, conjunctival hemorrhage, pupillary changes, cellulitic change, obvious foreign body, or otherwise irregular ocular findings.) Neck Neck exam: Present normal inspection, full ROM and trachea midline; Absent tenderness Respiratory Respiratory exam: Absent respiratory distress, wheezes, stridor, accessory muscle use or prolonged expiratory phase Cardiovascular Cardiovascular exam: Present regular rate, normal rhythm and other (Pulses equal symmetric in upper and lower extremities) Abdominal Exam Abdominal exam: Present soft; Absent distention, tenderness or pulsatile mass Extremities Exam Extremities exam: Present other (Intended because bilateral pointer fingers. Also swelling and tenderness distal left forearm at the wrist. Neurovascularly intact and range of motion intact all joints, but limited secondary to pain) Neurological Exam Neurological exam: Present alert, oriented X3 and CN II-XII intact; Absent motor sensory deficit Skin Skin exam: Present warm and dry; Absent diaphoresis or erythema Medical Decision Making Medical Records Medical records reviewed: Yes I reviewed the patient's medical records. Screening: Per USPSTF and CDC recommendations, given the prevalence of disease in our region, it is our hospital?s policy to screen for HIV and viral Hepatitis for all patients aged 18 and over and those with ongoing risk factors. Rishabh Inquiry Pt receiving controlled substance: No Rishabh was queried for this patient: No Vital Signs: 07/01/24 08:55 07/01/24 10:55 Temperature 98.2 F 98.3 F Temperature Source Oral Oral Pulse Rate 84 Pulse Rate [Left Radial] 82 Respiratory Rate 18 18 Blood Pressure 144/67 H Blood Pressure [Right Arm] 166/74 H Blood Pressure Mean [Right Arm] 104 Blood Pressure Source Automatic Cuff Blood Pressure Position Supine 02 Sat by Pulse Oximetry 95 Oxygen Delivery Method Room Air Room Air Lab Data Lab Results 07/01/24 09:44: WBC 11.9 H, RBC 4.23, Hgb 12.1 L, Hct 38.3, MCV 90.5, MCH 28.6, MCHC 31.6 L, RDW 13.5, Plt Count 304, MPV 10.4, Neut % (Auto) 63.6, Lymph % (Auto) 25.1, [place] % (Auto) 7.9, Eos % (Auto) 2.5, Baso % (Auto) 0.6, Neut # (Auto) 7.6, Lymph # (Auto) 3.0, [place] # (Auto) 0.9, Eos # (Auto) 0.3, Baso # (Auto) 0.1, Sodium 140, Potassium 3.9, Chloride 107, Carbon Dioxide 27, Anion Gap 9.9, BUN 20 H, Creatinine 1.10 H, Estimated Creat Clear 55, Estimated GFR 48 L, Est GFR ( Amer) 58 L, Glucose 116 H, Calcium 9.1, Total Bilirubin 0.5, AST 33, ALT 26, Alkaline Phosphatase 106, Total Protein 7.7, Albumin 4.2, Globulin 3.5 H, Albumin/Globulin Ratio 1.2 07/01/24 09:50: Urine Color Yellow, Urine Appearance Sl cloudy, Urine pH 6.0, Ur Specific [place] 1.025, Urine Protein Negative, Urine Glucose (UA) Negative, Urine Ketones Negative, Urine Blood Negative, Urine Nitrate Negative, Urine Bilirubin Negative, Urine Urobilinogen 0.2, Ur Leukocyte Esterase Negative, Urine RBC None, Urine WBC Occasional, Ur Squamous Epith Cells 5-10, Urine Bacteria Trace 07/01/24 09:44 07/01/24 09:44 Orders (Tests/Meds): ORDERS Category Date Time Status CT cervical spine wo con Stat Cat Scan 07/01/24 09:[address] head/brain wo con Stat Cat Scan 07/01/24 09:12 Completed Hand XR left minimum 3 views [XR hand LT min 3V] Stat Exams 07/01/24 09:12 Completed Hand XR right minimum 3 views [XR hand RT min 3V] Stat Exams 07/01/24 09:12 Completed Wrist XR left minimum 3 views [XR wrist LT min 3V] Stat Exams 07/01/24 09:12 Completed CBC w/Auto Diff [Complete Blood Count Auto Diff] Stat Lab 07/01/24 09:44 Completed CMP [Comprehensive Metabolic Panel] Stat Lab 07/01/24 09:44 Completed UA [Urinalysis and Microscopic] Stat Lab 07/01/24 09:50 Completed Medical Decision Narrative: 78-year-old female no relevant medical history presenting with fall. Patient fell yesterday afternoon, 06/30 little less than 24 hours ago. States that she stood up out of her chair, fell onto the floor. Try to catch herself with her hands and hit her face on the floor. No loss of consciousness. Able to get herself up. Family came to check on her today, saw the bruising at her hands, wrist, and forehead and brought her in for further evaluation. Patient states that she has mild pain, otherwise no complaints. History was obtained via conversation with patient and daughter. On arrival, patient hemodynamically stable, alert, oriented x4, appropriate, GCS 15, moving all extremities spontaneously, pupils equal and reactive to light. Full physical exam performed and significant for well-appearing female no acute distress. She has periorbital bruising on the right, no ocular involvement. Bruising and swelling about bilateral pointer fingers and left distal radius at the wrist. Neurovascular intact and range of motion intact, although limited at the wrist secondary to pain and swelling. Differential includes fracture, sprain, strain, dislocation, intracranial hemorrhage, skull fracture, cervical spine injury, metabolic abnormality, neurologic abnormality, dehydration, urinary tract infection, among others. Patient placed on continuous cardiac monitoring and continuous pulse ox with initial blood pressure 166/74, heart rate 82, saturation 95% on room air. Labs and imaging obtained. Labs independently interpreted, nonactionable hematologic labs with stable kidney function. Urinalysis negative. CT head independently interpreted and no intracranial hemorrhage. No evidence of cervical spine injury. No evidence of bony abnormality about the right hand or left hand, but left triquetral fracture which was placed in Velcro splint. Given patient presentation, workup, history, this most likely represents fall from standing, carpal fracture and facial bruising. Because patient at baseline without signs or symptoms of clinical decompensation, deemed appropriate for discharge. Results were relayed to patient who voiced understanding and were agreeable to outpatient management and follow up. I discussed my clinical impression with patient and answered all questions. At this time, the evidence for any other entities in the differential is insufficient to warrant any further testing or ED observation. This was explained as well. Advisory was given that persistent or worsening symptoms require further evaluation. I confirmed the understanding of this discussion. Developmental Therapist disclaimer Much of this encounter note is an electronic data entry technician spoken language to printed text. Electronic data entry technician of the spoken language may permit errors. Although I have reviewed the note, some errors may still exist. Critical Care Critical Care Time Critical Care Time: No
[2024-07-01 09:53] LABS: Basophils # 0.1 K/mm3 (0-0.2); Basophils % 0.6 % (0.1-2.0); Eosinophils # 0.3 Kmm3 (0.0-0.4); Eosinophils % 2.5 % (0.1-12.0); Hematocrit 38.3 % (37.0-47.0); Hemoglobin 12.1 g/dL (12.2-16.2); Lymphocytes % 25.1 % (10-50); Mean Corpuscular HGB Conc 31.6 g/dL (31.8-35.4); Mean Corpuscular Hemoglobin 28.6 pg (27.0-31.2); Mean Corpuscular Volume 90.5 fl (81-99); Mean Platelet Volume 10.4 fl (7.4-10.4); Monocytes # 0.9 K/mm3 (0.1-1.0); Monocytes % 7.9 % (1.7-9.3); Neutrophils # 7.6 K/mm3 (1.8-7.8); Neutrophils % 63.6 % (37.0-80.0); Nucleated Red Blood Cells # 0 10^3/uL; Nucleated Red Blood Cells % 0 %; Platelet Count 304 K/mm3 (142-424); Red Blood Count 4.23 M/mm3 (4.20-5.40); Red Cell Distribution Width 13.5 % (11.5-17.5); Red Cell Distribution Width-SD 45.1 fL; White Blood Count 11.9 K/mm3 (4.8-10.8)
[2024-07-01 09:56] LABS: Microscopic, Urine URINE MICROSCOPIC (MICROSCOPIC)
[2024-07-01 09:59] LABS: Appearance,Urine SL CLOUDY (Clear); Bilirubin,Urine Negative (Negative); Blood, Urine Negative (Negative); Color,Urine YELLOW (Yellow); Glucose,Urine (UA) Negative (Negative); Ketones,Urine Negative (Negative); Leukocyte Esterase,Urine Negative (Negative); Nitrate,Urine Negative (Negative); Protein,Urine Negative (Negative); Specific Gravity, Urine 1.025 (1.005-1.030); Urobilinogen,Urine 0.2 EU/dl (0.2)
[2024-07-01 10:02] LABS: Albumin Level 4.2 g/dl (3.5-5.0); Chloride 107 mmol/L (98-107); Potassium 3.9 mmoL/L (3.5-5.1); Sodium 140 mmol/L (136-145)
[2024-07-01 10:05] LABS: Alanine Aminotransferase 26 U/L (12-78); Albumin/Globulin Ratio 1.2 (1.1-1.8); Alkaline Phosphatase 106 U/L (38-126); Anion Gap 9.9 mEq/L (5-15); Aspartate Amino Transferase 33 U/L (14-36); Bilirubin,Total 0.5 mg/dl (0.2-1.3); Blood Urea Nitrogen 20 mg/dl (7-17); Calcium 9.1 mg/dl (8.4-10.2); Carbon Dioxide 27 mmol/L (22.0-30.0); Creatinine Clearance Estimated 55 mL/min (50-200); Estimated Glomerular Filt Rate 48 ml/min (>60); GFR (African American) 58 ML/MIN (>60); Globulin 3.5 g/dL (1.3-3.2); Glucose 116 mg/dl (74-100); Total Protein,Serum 7.7 g/dl (6.3-8.2)
[2024-07-01 10:07] LABS: Bacteria,Urine Trace /lpf; WBC,Urine Occasional #/hpf (0-3)
[2024-07-01 10:55] VITALS: BP 144/67; PULSE 84; RESP 18; TEMP 36.8; O2SAT 97
== END 2024-07-01 11:00 | disposition home or self-care (01) ==
PROVIDERS: Emergency Provider Emergency Medicine; PCP Nurse Practitioner Family
DX: S62.112A Displaced fracture of triquetrum [cuneiform] bone, left wrist, initial encounter for closed fracture (principal); S00.83XA Contusion of other part of head, initial encounter; M79.641 Pain in right hand; M79.642 Pain in left hand; W19.XXXA Unspecified fall, initial encounter
CPT/HCPCS: 70450; 72125; 73110; 73130; 80053; 81001; 85025; 99285

== ENCOUNTER 2024-07-14 09:21 | Outpatient (CLI) | payer MEDICARE, MEDICAID, SELFPAY ==
--- NOTE | 2024-07-14 09:32 | XR_ITS ---
FINAL REPORT CLINICAL HISTORY: lt wrist pain COMPARISON: 07/01/2024 FINDINGS: AP, oblique, and lateral views of the left wrist were obtained. There is no prior exam for comparison. There is no acute fracture or dislocation. There is stable calcification along the dorsal wrist which could be related to prior triquetral fracture. Mild degenerative joint disease is identified. IMPRESSION: No acute osseous abnormality of the left wrist. If pain persists, MR is recommended. Mild degenerative joint disease. Reviewed, Interpreted and Dictated by Aida Rodas MD Transcribed by Catrina Curry Authenticated and [facility]
== END 2024-07-14 23:59 | disposition home or self-care (01) ==
LOC: RAD 09:23
PROVIDERS: PCP Nurse Practitioner Family; Visit Provider Orthopaedic Surgery
DX: M25.532 Pain in left wrist (principal); S62.112A Displaced fracture of triquetrum [cuneiform] bone, left wrist, initial encounter for closed fracture
CPT/HCPCS: 73110

== ENCOUNTER 2024-08-08 08:43 | Outpatient (CLI) | payer MEDICARE, MEDICAID, SELFPAY ==
--- NOTE | 2024-08-08 08:45 | XR_ITS ---
FINAL REPORT CLINICAL HISTORY: Left Wrist fx july COMPARISON: 07/14/2024 FINDINGS: AP, oblique, and lateral views of the left wrist were obtained. A remote triquetral fracture is also seen on the prior exam. There is no acute fracture or dislocation. Mild degenerative changes are present. The soft tissues are normal. IMPRESSION: Mild degenerative changes, with no acute osseous abnormality of the left wrist. Reviewed, Interpreted and Dictated by Aida Rodas MD Transcribed by Gwendolyn Davis Authenticated and [facility]
== END 2024-08-08 23:59 | disposition home or self-care (01) ==
LOC: RAD 08:43
PROVIDERS: PCP Nurse Practitioner Family; Visit Provider Physician Assistant Surgical
DX: M19.032 Primary osteoarthritis, left wrist (principal); S62.112A Displaced fracture of triquetrum [cuneiform] bone, left wrist, initial encounter for closed fracture
CPT/HCPCS: 73110

== ENCOUNTER 2024-12-30 11:47 | Day surgery (SDC) | payer MEDICARE, MEDICAID, SELFPAY ==
[2024-12-30 11:49] VITALS: BP 196/91; PULSE 90; PULSE 95; RESP 18; O2SAT 95
[2024-12-30 11:58] VITALS: BP 141/74; PULSE 74; RESP 16; O2SAT 94; BMI 32.4
[2024-12-30] MEDS: LIDOCAINE 1% 5ML PF VIAL 10 ML (12:03)
[2024-12-30] MEDS: BUPIVACAINE 0.25% 10ML INJ 25 MG IJ (12:03)
[2024-12-30] MEDS: IOPAMIDOL-200 (41%);10ML VIAL 3 ML IV (12:04)
[2024-12-30 12:13] VITALS: BP 140/76; PULSE 81; RESP 16; O2SAT 94
--- NOTE | 2024-12-30 13:08 | P.HP_ITS ---
History of Present Illness *Admission Date: 12/30/24 *Reason for visit:: Medial branch blocks bilateral L4-5 and L5-S1 *History of present illness: This patient is a pleasant 79-year-old white female who has axial back pain. She has lumbar spondylosis she presents for bilateral lumbar medial branch block L4-5 and L5-S1 today. [facility] Disclaimer: The information contained in this section may have been updated after the patient was seen, as this information can be updated by other users. Medical History History of back pain Vitamin D deficiency Lumbago HTN (hypertension), benign HLD (hyperlipidemia) History of osteoarthritis Gout attack Surgical History H/O total hysterectomy Family History Other Heart attack Social History Smoking Status: Never smoker second hand exposure: No alcohol intake: current alcohol intake frequency: holidays/special occasions only substance use type: denies use current occupational status: retired Travel in the last 8 weeks?: None household members: spouse housing: house current occupational exposures/hazards: No caffeine: Yes Other Medical History Have you received the Flu Vaccine for this season: No Have you received the Pneumonia Vaccine: No Review of Systems Review of Systems Review of systems:: pertinent systems reviewed and negative unless documented below Meds Home Medications and Allergies Home Medications ?Medication ?Instructions ?Recorded ?Confirmed ?Type potassium chloride 10 mEq 10 meq PO BID 04/15/2312/30 History tablet,extended release bisoprolol fumarate 5 mg tablet 5 mg PO DAILY 07/08/23 12/30/24 History furosemide 20 mg tablet 20 mg PO TID 90 days #270 ta bs 08/25/23 12/30/24 Rx hydrochlorothiazide 12.5 mg tablet 12.5 mg PO DAILY #9 0 tabs 11/18/23 12/30/24 Rx dapagliflozin propanediol 10 mg 10 mg PO DAILY #90 tab s 05/19/24 12/30/24 Rx tablet (Farxiga) tramadol 50 mg tablet 50 mg PO BID PRN pain #60 ta bs 11/18/24 12/30/24 Rx lidocaine 5 % topical patch 1 patch topical DAILY #30 ea 12/05/24 12/30/24 Rx dicyclomine 10 mg capsule See Rx Instructions .Route 1 12/30/24 Rx .COMPLEX #180 caps New Prescriptions to Start Prescriptions: Allergies Allergy/AdvReac Type Severity Reaction Status Date / Time Penicillins Allergy Intermediate Rash Verified 12/05/24 09:21 tetanus toxoid, adsorbed Allergy Unknown SWELLS Verified 12/05/24 09:21 (TETANUS TOXOID, ADSORBED) THROAT Exam Data for Last 24 hours Vital signs and Labs for Last 24 Hours: Pulse Resp BP Pulse Ox O2 Del Method 81 16 140/76 94 L Room Air 12/30/24 12:13 12/30/24 12:13 12/30/24 12:13 12/30/24 12:13 12/30/24 12:13 I & O for Last 24 hours: Intake & Output 12/28/24 12/29/24 12/30/24 12/31/24 11:59 11:59 11:59 11:59 Weight 195 lb *Routine HEENT Exam Head: Present normocephalic Eye: Present EOMI ENT: Present mucous membranes moist *Routine Respiratory Exam Respiratory: Present CTA bilaterally *Routine Cardiovascular Exam Cardiovascular: Present RRR, Normal S1 and Normal S2 *Routine Abdominal Exam Abdominal: Present soft *Routine Rectal Exam Rectal:: deferred *Routine Genitalia Exam Genitalia:: deferred Assessment and Plan *Assessment and plan (1) Lumbar spondylosis: Status: Acute Category: Medical Code(s): M47.816 - Spondylosis without myelopathy or radiculopathy, lumbar region (2) Lumbar facet arthropathy: Status: Acute Category: Medical Code(s): M47.816 - Spondylosis without myelopathy or radiculopathy, lumbar region (3) Degenerative disc disease: Status: Acute Qualifiers: Spinal region: lumbar Disc-related pain type: without discogenic back pain or lower extremity pain Qualified Code(s): M51.369 - Other intervertebral disc degeneration, lumbar region without mention of lumbar back pain or lower extremity pain Category: Medical Plan Lumbar medial branch block diagnostic block 1 L4-5 and L5 spine
--- NOTE | 2024-12-30 13:11 | EXP.PAIN.PRO ---
Procedure Date: 12/30/24 Time: 13:11 Anesthesiologist:: Dago Jiménez MD Complications:: None Pre-procedure Diagnosis:: Degenerative disease of lumbar spine with lumbar spondylosis Post-procedure Diagnosis:: Same Indications for Procedure:: Patient is a pleasant 79-year-old white female who presents for bilateral L4-5 and L5-S1 lumbar medial branch block. This is diagnostic block 1. This will be done with local anesthetic only. Will follow-up with this patient in 2 weeks to assess diagnostic block 1. If successful plan on diagnostic block #2 followed by RF ablation with continuous burn At 80 ?C. Procedure Details:: Lumbar medial branch block Informed consent was obtained and the risks and benefits of the procedure was explained to the patient. The back was prepped using ChloraPrep. The skin and subcutaneous tissues were anesthetized using lidocaine. I placed 22-gauge spinal needles into the facet joint/medial branches of L4-L5 and L5-S1 bilaterally. Needle placement was confirmed with dye. After this we injected 0.5 mL lidocaine 1% into each facet joint/medial branch of L4-L5 and L5-S1 bilaterally. The patient tolerated the procedure well with no complications. Plan and Disposition:: Will follow-up with this patient in 2 weeks. Will assess efficacy of this diagnostic block 1. If successful we will plan on diagnostic block #2 probable RF ablation with continuous burn at 80 ?C.
== END 2024-12-30 12:13 | disposition home or self-care (01) ==
LOC: SC.PAINP 11:47
PROVIDERS: PCP Nurse Practitioner Family; Visit Provider Anesthesiology
DX: M51.369 Other intervertebral disc degeneration, lumbar region without mention of lumbar back pain or lower extremity pain (principal); M47.816 Spondylosis without myelopathy or radiculopathy, lumbar region; I10 Essential (primary) hypertension; Z88.0 Allergy status to penicillin; Z88.7 Allergy status to serum and vaccine; Z79.899 Other long term (current) drug therapy
CPT/HCPCS: 64493; 64494; 99221; J0665; J2003; Q9966